=== PATIENT | male | born 1945 | race Caucasian/White ===

== ENCOUNTER 2016-11-05 09:07 | Inpatient (IN) | payer BC, OTHER ==
[~2016-11-05] VITALS: Ht 167.6 cm; Wt 88.4 kg
[2016-11-05] VITALS (7 sets, daily range): BP systolic 112–145; BP diastolic 60–75; PULSE 55–72; TEMP 36.4; O2SAT 94–97; Ht 167.6 cm; Wt 88.4 kg
[~2016-11-05 09:07] MED LIST: ACET-1256 PO; ACT30 PO; ATOR-22 PO; ENAL10TA88 PO; METF-384 PO; MULT-506 PO; RXC5 PO; SENNTAB23 PO; SILD100T PO; TAMS0.4C38 PO
--- NOTE | 2016-11-05 09:37 | EMERGENCY ROOM VISIT NOTE ---
History Report prepared by Jayce: Ilan Chi Under the Supervision of: Dr. Zulema Miguel M.D. First contact with patient: 09:26 Chief Complaint: WEAKNESS Stated Complaint: WEAKNESS,TIRED,NO SLEEP History of Present Illness The patient is a 70 year old male who presents to the Emergency Room with complaints of weakness that occurred two weeks ago. This weakness is secondary to his increased trouble sleeping. He was given a sleeping pill at this time that helped him initially, but it stopped helping him sleep. He normally sleeps around 5 hours each night, but he has not been close to this at all. He denies any pain, fevers, or diarrhea. He does not feel like his weight has changed drastically. Secondary to the patient working in [employer] for 50 years, he has a chronic hacking cough. He becomes short of breath occasionally as well. He had one occurrence of chest pain with exertion while he was mowing the lawn last week, but it resolved. He has been using a stool softener to keep him regular. He has a past medical history of hypertension, diabetes, and hyperlipidemia. He has had a recent back surgery. He does not take blood thinners. He currently takes Atorvastatin 200 mg PO once a day, Metformin 1000 mg PO once a day, Enalapril 20 mg PO twice a day, Pioglitazone 30 mg PO once a day, and Centrum Silver PO once a day. Source of History: patient Onset: 2 weeks ago Position: other (global) Symptom Intensity: moderate Quality: other (weakness) Timing: constant Associated Symptoms: + SOB, + cough, No diarrhea, No fevers Note: He denies any pain at this time. Review of Systems See HPI for pertinent positives & negatives. A total of 10 systems reviewed and were otherwise negative. Past Medical & Surgical Medical Problems: (1) Chest pain (2) Diabetes mellitus, type II (3) Dyslipidemia (4) Hypertension (5) Lumbar stenosis with neurogenic claudication (6) Non-ST elevation [place] (NSTEMI) Surgical Problems: (1) Status post appendectomy (2) Status post lumbar surgery (3) Status post total knee replacement Family History Coronary artery disease MOTHER Diabetes mellitus FATHER Social History Smoking Status: Heavy Tobacco Smoker Marital Status: single Housing Status: lives alone Occupation Status: employed Current/Historical Medications Scheduled Atorvastatin (Lipitor), 20 MG PO QAM Enalapril Maleate (Enalapril Maleate), 20 MG PO BID Metformin Hcl (Glucophage), 1,000 MG PO BID Multivitamin (Multivitamin), 1 TAB PO QAM Pioglitazone (Actos), 1 TAB PO QAM Sennosides-Docusate Sodium (Stool Softener), 2 TAB PO QPM Sildenafil Citrate (Viagra), 100 MG PO PRN Tamsulosin Hcl (Flomax), 0.4 MG PO QAM Scheduled PRN Trazodone Hcl (Trazodone), 50 MG PO HS PRN for Sleep Allergies Coded Allergies: No Known Allergies (Verified , 11/05/16) Physical Exam Vital Signs Date Time Temp Pulse Resp B/P Pulse Ox O2 Delivery O2 Flow Rate FiO2 11/05/16 13:23 124/75 11/05/16 13:18 83 11/05/16 13:16 88 18 98 Room Air 11/05/16 11:19 77 18 130/63 97 Room Air 11/05/16 11:04 94 Room Air 11/05/16 09:26 86 11/05/16 09:10 36.4 80 18 125/75 94 Room Air Physical Exam Vital signs reviewed. General: Well-appearing male, in no significant distress. HEENT: No scleral icterus, PERRLA, neck supple. Atraumatic. Cardiovascular: Regular rate and rhythm, no extra sounds. Pulmonary: Clear to auscultation bilaterally, normal work of breathing. Abdomen: Soft, nontender, nondistended, positive bowel sounds. Musculoskeletal: Atraumatic, no peripheral edema. Neurologic: Patient awake alert and oriented x 3, full strength in all 4 extremities. Cranial nerves 2 through 12 grossly intact. Skin: Warm, dry, no rash Medical Decision & Procedures ER Provider Diagnostic Interpretation: X-ray results as stated below per interpretation by me and the radiologist: CHEST ONE VIEW PORTABLE CLINICAL HISTORY: CP dyspnea COMPARISON STUDY: 02/12/2016 FINDINGS: Cardiomegaly. Trace pleural fluid lateral costophrenic angles bilaterally. Increased prominence of the pulmonary vasculature. Thoracolumbar laminectomy and fusion. IMPRESSION: Developing congestive heart failure Electronically signed by: Luc Rodriguez M.D. 11/05/2016 10:01 AM Dictated Date/Time: 11/05/2016 10:01 AM Laboratory Results Test 11/05/16 09:25 11/05/16 09:30 11/05/16 09:39 Immature Granulocyte % (Auto) 0.1 % White Blood Count 8.06 K/uL (4.8-10.8) Red Blood Count 4.34 M/uL (4.7-6.1) Hemoglobin 12.8 g/dL (14.0-18.0) Hematocrit 39.9 % (42-52) Mean Corpuscular Volume 91.9 fL (80-100) Mean Corpuscular Hemoglobin 29.5 pg (25-34) Mean Corpuscular Hemoglobin Concent 32.1 g/dl (32-36) Platelet Count 284 K/uL (130-400) Mean Platelet Volume 9.4 fL (7.4-10.4) Neutrophils (%) (Auto) 73.8 % Lymphocytes (%) (Auto) 17.5 % Monocytes (%) (Auto) 6.9 % Eosinophils (%) (Auto) 1.5 % Basophils (%) (Auto) 0.2 % Neutrophils # (Auto) 5.94 K/uL (1.4-6.5) Lymphocytes # (Auto) 1.41 K/uL (1.2-3.4) Monocytes # (Auto) 0.56 K/uL (0.11-0.59) Eosinophils # (Auto) 0.12 K/uL (0-0.5) Basophils # (Auto) 0.02 K/uL (0-0.2) Immature Granulocyte # (Auto) 0.01 K/uL (0.00-0.02) Prothrombin Time 10.9 SECONDS (9.0-12.0) Prothromb Time International Ratio 1.0 (0.9-1.1) Total Bilirubin 0.6 mg/dl (0.2-1) Direct Bilirubin 0.2 mg/dl (0-0.2) Aspartate Amino Transf (AST/SGOT) 20 U/L (15-37) Alanine Aminotransferase (ALT/SGPT) 61 U/L (12-78) Alkaline Phosphatase 97 U/L (45-117) Total Creatine Kinase 88 U/L (39-308) Pro-B-Type Natriuretic Peptide 2207 pg/ml (0-900) Total Protein 7.4 gm/dl (6.4-8.2) Albumin 4.3 gm/dl (3.4-5.0) Thyroid Stimulating Hormone (TSH) 1.670 uIu/ml (0.300-4.500) Free Thyroxine 0.97 ng/dl (0.80-1.60) Free Triiodothyronine 3.13 pg/ml (2.30-4.20) Urine Color YELLOW Urine Appearance CLEAR (CLEAR) Urine pH 5.0 (4.5-7.5) Urine Specific [place] 1.024 (1.000-1.030) Urine Protein NEG (NEG) Urine Glucose (UA) NEG (NEG) Urine Ketones TRACE (NEG) Urine Occult Blood NEG (NEG) Urine Nitrite NEG (NEG) Urine Bilirubin NEG (NEG) Urine Urobilinogen NEG (NEG) Urine Leukocyte Esterase NEG (NEG) Bedside Troponin I 0.360 ng/ml (0-0.045) Laboratory results per my review. Medications Administered Medications (Trade) Dose Ordered Sig/Víctor Route Start Time Stop Time Status Last Admin Dose Admin Furosemide (Lasix Inj) 40 mg NOW STAT IV 11/05/16 11:02 11/05/16 11:03 DC 11/05/16 11:16 40 MG Aspirin (Aspirin Chew) 324 mg NOW STAT PO 11/05/16 11:02 11/05/16 11:03 DC 11/05/16 11:16 324 MG Ondansetron HCl (Zofran Inj) 4 mg Q6H PRN IV 11/05/16 12:30 12/05/16 12:29 11/06/16 05:51 4 MG Heparin Sodium/ Dextrose (Heparin 25,000 Unit/500ml D5W) 25,000 unit STK-MED ONCE .ROUTE 11/05/16 13:48 11/05/16 13:49 DC 11/05/16 14:10 25,000 UNIT Perflutren Lipid Microsphere (Definity) 2 ml ONE ONCE IV 11/05/16 13:53 11/05/16 13:54 DC 11/05/16 13:54 2 ML ECG Indication: weakness Rate (beats per minute): 87 Rhythm: normal sinus Findings: other (Previous septal infarct, flattened T-waves) Comparison ECG Date: 12 Feb 2016 Change: The septal infarct is new. ED Course 0926: Past medical records reviewed. The patient was evaluated in room B5. A complete history and physical examination was performed. 1102: Ordered Aspirin 324 mg PO, Furosemide 40 mg IV 1140: Upon reevaluation, the patient is resting comfortably. I discussed laboratory and radiographic results with him. He verbalized agreement of the treatment plan. I spoke with Dr. Abdullahi of the [facility]. The patient will be evaluated for further management and care. Medical Decision Differential diagnosis: Etiologies such as metabolic, infection, hypo/hyperglycemia, electrolyte abnormalities, cardiac sources, intracerebral event, toxicologic, neurologic, as well as others were entertained. This patient was evaluated and appeared to be in no significant distress. IV access was obtained and laboratory work was drawn. The patient was complaining mostly of fatigue and some shortness of breath. He states he had a difficult time sleeping. His physical examination is fairly unrevealing. Chest x-ray reveals some mild pulmonary edema. EKG reveals no acute ischemia, there is indication of previous infarct. Patient's laboratory work reveals an elevated troponin at 0.3. Patient was given 4 baby aspirin. He was also given Lasix 40 mg IV for the pulmonary congestion. The case was discussed with the hospitalist service who evaluated the patient for admission and further management. Consults Time Called: 1135 Consulting Physician: Dr. Abdullahi - [facility] Returned Call: 1140 They will be evaluating the patient for further management. Impression Primary Impression: Cardiac ischemia Additional Impressions: Elevated troponin CHF (congestive heart failure) Scribe Attestation The scribe's documentation has been prepared under my direction and personally reviewed by me in its entirety. I confirm that the note above accurately reflects all work, treatment, procedures, and medical decision making performed by me. Departure Information Dispostion Being Evaluated By Hospitalist Referrals Selene Gross M.D. (PCP) Patient Instructions My [facility] Problem Qualifiers
[2016-11-05 09:49] LABS: BASO % 0.2 %; BASO ABS # 0.02 K/uL (0-0.2); COMPLETE YES; EOS % 1.5 %; HEMATOCRIT 39.9 % (42-52); IG% 0.1 %; LYMPH % 17.5 %; LYMPH ABS # 1.41 K/uL (1.2-3.4); MEAN CELL VOLUME 91.9 fL (80-100); MEAN CORPUSCULAR HEMOGLOBIN 29.5 pg (25-34); MEAN CORPUSCULAR HGB CONC 32.1 g/dl (32-36); MEAN PLATELET VOLUME 9.4 fL (7.4-10.4); MONO % 6.9 %; NEUT % 73.8 %; PLATELET COUNT 284 K/uL (130-400); RED BLOOD COUNT 4.34 M/uL (4.7-6.1); WHITE BLOOD COUNT 8.06 K/uL (4.8-10.8)
[2016-11-05 09:57] LABS: URINE APPEARANCE CLEAR (CLEAR); URINE BILIRUBIN NEG (NEG); URINE COLOR YELLOW; URINE NITRITE NEG (NEG); URINE SPECIFIC GRAVITY 1.024 (1.000-1.030); UROBILINOGEN NEG (NEG); ZZUR CULT IF INDIC CLEAN CATCH NO
[2016-11-05 10:00] LABS: MANUAL MICROSCOPIC REQUIRED? NO; REVIEW REQ? NO
[2016-11-05 10:00] LABS: PROTHROMBIN TIME (PATIENT) 10.9 SECONDS (9.0-12.0)
--- NOTE | 2016-11-05 10:02 | DIAGNOSTIC IMAGING REPORT ---
CHEST ONE VIEW PORTABLE CLINICAL HISTORY: CP dyspnea COMPARISON STUDY: 02/12/2016 FINDINGS: Cardiomegaly. Trace pleural fluid lateral costophrenic angles bilaterally. Increased prominence of the pulmonary vasculature. Thoracolumbar laminectomy and fusion. IMPRESSION: Developing congestive heart failure Electronically signed by: Luc Rodriguez M.D. 11/05/2016 10:01 AM Dictated Date/Time: 11/05/2016 10:01 AM
[2016-11-05 10:07] LABS: ALT/SGPT 61 U/L (12-78); BLOOD UREA NITROGEN 26 mg/dl (7-18); BUN/CREATININE RATIO 23.8 (10-20); CALCIUM 9.2 mg/dl (8.5-10.1); CARBON DIOXIDE 25 mmol/L (21-32); CHLORIDE 111 mmol/L (98-107); GLUCOSE 119 mg/dl (70-99); POTASSIUM 4.2 mmol/L (3.5-5.1); SODIUM 144 mmol/L (136-145)
[2016-11-05 10:18] LABS: ALKALINE PHOSPHATASE 97 U/L (45-117); AST/SGOT 20 U/L (15-37); CKMB/CK RATIO 3.3 (0-3.0)
[2016-11-05] MEDS ORDERED: TRAZ50TA35 PO (10:27)
[2016-11-05] MEDS ORDERED: FUROSEMIDE 40 MG/4 ML VIAL IV STA (11:02)
[2016-11-05] MEDS ORDERED: ASPIRIN 81 MG CHEW PO STA (11:02)
[2016-11-05] MEDS ORDERED: ONDANSETRON INJ 2 MG/ML 2 ML VIAL IV PRN (12:30)
[2016-11-05] MEDS ORDERED: ZOLPIDEM TARTRATE 5 MG TAB PO PRN ×2 (12:30→14:15)
[2016-11-05] MEDS ORDERED: NITROGLYCERIN 0.4 MG SL PER TAB CHARGE SL PRN (12:30)
[2016-11-05] MEDS ORDERED: ACETAMINOPHEN 325 MG TAB PO PRN (12:30)
[2016-11-05] MEDS ORDERED: ENAL20TA PO (12:35)
[2016-11-05] MEDS ORDERED: GLUCOSE 10 TABS/TUBE PO PRN (12:45)
[2016-11-05] MEDS ORDERED: GLUCAGON FOR INJ 1 MG VIAL SQ PRN (12:45)
[2016-11-05] MEDS ORDERED: GLUCOSE 40% GEL 15 GM TUBE PO PRN (12:45)
[2016-11-05] MEDS ORDERED: DEXTROSE 50% 50 ML SYR IV PRN (12:45)
[2016-11-05] MEDS ORDERED: IV FLUIDS COMPLETED PRN ×2 (12:45→15:15)
--- NOTE | 2016-11-05 13:01 | History and Physical ---
History & Physical Date & Time of Service: November 05, 2016 at 12:40 Chief Complaint: Weakness,Tired,No Sleep Primary Care Physician: Selene Gross M.D. History of Present Illness Source: patient This is a 70 y/o male with PMHx of DM 2, HTN, Dyslipidemia and other problems as outlined below who presents to the ED c/o weakness for 3 weeks. Pt reports that he has been getting progressively more weak and tired over the past few weeks which he attributes to increasing difficulty with insomnia. His PCP prescribed trazodone to use as needed but it has not been helping. Last week patient was mowing his lawn when he developed 6/10 chest "pressure" that did not radiate anywhere. Sxs resolved after about 15 minutes of resting. When he returned to mowing the same chest discomfort returned. Since that time, patient has not experienced any more chest discomfort however he feels like "something isn't right". Daughter at bedside mentions that she has noticed a worsening wet cough as well as worsening LE swelling. Positive FmHx of cardiac disease but pt has no personal history of cardiac disease. Pt denies fever/chills, diaphoresis , chest pain, palpitations, SOB, wheezing, abd pain, N/V, bowel or bladder issues, LE edema ,calf pain, lightheadedness/dizziness. In the ED, vitals are stable. Pt is afebrile with no leukocytosis. Trop 0.36 and EKG + T wave changes in lateral leads. CXR + congestion. Pt is currently chest pain free and will be admitted for further evaluation and treatment. Past Medical/Surgical History Medical Problems: (1) Diabetes mellitus, type II Status: Chronic (2) Dyslipidemia Status: Chronic (3) Hypertension Status: Chronic (4) Lumbar stenosis with neurogenic claudication Status: Chronic Surgical Problems: (1) Status post appendectomy Status: Resolved (2) Status post lumbar surgery Status: Resolved (3) Status post total knee replacement Status: Resolved Family History Coronary artery disease MOTHER Diabetes mellitus FATHER Social History Smoking Status: Never Smoker Marital Status: single Occupational Status: employed Immunizations History of Influenza Vaccine: Yes History of Tetanus Vaccine?: No History of Pneumococcal: Unknown History of Hepatitis B Vaccine: No Allergies Coded Allergies: No Known Allergies (Verified , 11/05/16) Home Medications Scheduled Atorvastatin (Lipitor), 20 MG PO QAM Enalapril Maleate (Enalapril Maleate), 20 MG PO BID Metformin Hcl (Glucophage), 1,000 MG PO BID Multivitamin (Multivitamin), 1 TAB PO QAM Pioglitazone (Actos), 1 TAB PO QAM Sennosides-Docusate Sodium (Stool Softener), 2 TAB PO QPM Sildenafil Citrate (Viagra), 100 MG PO PRN Tamsulosin Hcl (Flomax), 0.4 MG PO QAM Scheduled PRN Trazodone Hcl (Trazodone), 50 MG PO HS PRN for Sleep Review of Systems Constitutional: + fatigue, + weakness, No chills, No fever, No sweats Eyes: No worsening of vision ENT: No hearing loss Respiratory: + cough, No shortness of breath, No sputum, No wheezing Cardiovascular: + chest pain, + edema, No claudication, No palpitations Abdomen: No constipation, No diarrhea, No nausea, No pain, No vomiting Musculoskeletal: + swelling, No calf pain Genitourinary - Male: No dysuria Neurologic: + weakness Psychiatric: No depression symptoms Endocrine: + fatigue Hematologic / Lymphatic: No abnormal bleeding/bruising Integumentary: No new/changing skin lesions Physical Exam Vital Signs Date Time Temp Pulse Resp B/P Pulse Ox O2 Delivery O2 Flow Rate FiO2 11/05/16 11:19 77 18 130/63 97 Room Air 11/05/16 11:04 94 Room Air 11/05/16 09:26 86 11/05/16 09:10 36.4 80 18 125/75 94 Room Air General Appearance: WD/WN, no apparent distress, + pertinent finding (Pt is laying in bed with daughter at bedside ) Head: normocephalic, atraumatic Eyes: normal inspection ENT: hearing grossly normal Neck: supple Respiratory/Chest: chest non-tender, no respiratory distress, + crackles ( bibasilar), + pertinent finding (no wheezing noted) Cardiovascular: regular rate, rhythm, no murmur Abdomen/GI: normal bowel sounds, non tender, soft Back: normal inspection Extremities/Musculoskelatal: normal inspection, no calf tenderness, + pedal edema (R>L) Neurologic/Psych: alert, normal mood/affect, oriented x 3 Skin: normal color, warm/dry Diagnostics Laboratory Results Results Past 24 Hours Test 11/05/16 09:25 11/05/16 09:30 11/05/16 09:39 Range/Units White Blood Count 8.06 4.8-10.8 K/uL Red Blood Count 4.34 4.7-6.1 M/uL Hemoglobin 12.8 14.0-18.0 g/dL Hematocrit 39.9 42-52 % Mean Corpuscular Volume 91.9 80-100 fL Mean Corpuscular Hemoglobin 29.5 25-34 pg Mean Corpuscular Hemoglobin Concent 32.1 32-36 g/dl Platelet Count 284 130-400 K/uL Mean Platelet Volume 9.4 7.4-10.4 fL Neutrophils (%) (Auto) 73.8 % Lymphocytes (%) (Auto) 17.5 % Monocytes (%) (Auto) 6.9 % Eosinophils (%) (Auto) 1.5 % Basophils (%) (Auto) 0.2 % Neutrophils # (Auto) 5.94 1.4-6.5 K/uL Lymphocytes # (Auto) 1.41 1.2-3.4 K/uL Monocytes # (Auto) 0.56 0.11-0.59 K/uL Eosinophils # (Auto) 0.12 0-0.5 K/uL Basophils # (Auto) 0.02 0-0.2 K/uL RDW Standard Deviation 51.6 36.4-46.3 fL RDW Coefficient of Variation 15.2 11.5-14.5 % Immature Granulocyte % (Auto) 0.1 % Immature Granulocyte # (Auto) 0.01 0.00-0.02 K/uL Prothrombin Time 10.9 9.0-12.0 SECONDS Prothromb Time International Ratio 1.0 0.9-1.1 Activated Partial Thromboplast Time 26.6 21.0-31.0 SECONDS Partial Thromboplastin Ratio 1.0 Sodium Level 144 136-145 mmol/L Potassium Level 4.2 3.5-5.1 mmol/L Chloride Level 111 98-107 mmol/L Carbon Dioxide Level 25 21-32 mmol/L Anion Gap 8.0 3-11 mmol/L Blood Urea Nitrogen 26 7-18 mg/dl Creatinine 1.10 0.60-1.40 mg/dl Estimated GFR () 78.4 Estimated GFR (Non- 67.7 BUN/Creatinine Ratio 23.8 10-20 Random Glucose 119 70-99 mg/dl Calcium Level 9.2 8.5-10.1 mg/dl Total Bilirubin 0.6 0.2-1 mg/dl Direct Bilirubin 0.2 0-0.2 mg/dl Aspartate Amino Transf (AST/SGOT) 20 15-37 U/L Alanine Aminotransferase (ALT/SGPT) 61 12-78 U/L Alkaline Phosphatase 97 45-117 U/L Total Creatine Kinase 88 39-308 U/L Creatine Kinase MB 2.9 0.5-3.6 ng/ml Creatine Kinase MB Ratio 3.3 0-3.0 Total Protein 7.4 6.4-8.2 gm/dl Albumin 4.3 3.4-5.0 gm/dl Thyroid Stimulating Hormone (TSH) 1.670 0.300-4.500 uIu/ml Free Thyroxine 0.97 0.80-1.60 ng/dl Free Triiodothyronine 3.13 2.30-4.20 pg/ml Urine Color YELLOW Urine Appearance CLEAR CLEAR Urine pH 5.0 4.5-7.5 Urine Specific [place] 1.024 1.000-1.030 Urine Protein NEG NEG Urine Glucose (UA) NEG NEG Urine Ketones TRACE NEG Urine Occult Blood NEG NEG Urine Nitrite NEG NEG Urine Bilirubin NEG NEG Urine Urobilinogen NEG NEG Urine Leukocyte Esterase NEG NEG Bedside Troponin I 0.360 0-0.045 ng/ml Diagnostic Radiology CXR IMPRESSION: Developing congestive heart failure EKG EKG: NSR at 87 bpm with T wave inversion in Lead I and T wave flattening in V5 and V6; T wave changes in lateral leads are new finding when compared to EKG from 02/12/16 Impression Assessment and Plan NSTEMI pt presented c/o intermittent exertional chest pain; no known history of cardiac disease -admit to telemetry -RFs include +FmHx, DM 2, HTN, Dyslipidemia -EKG shows new T wave changes in lateral leads; repeat EKG PRN chest pain and in AM -Initial troponin is 0.36; continue to monitor with serial cardiac enzymes q6h -obtain echo to r/o cardiac wall motion abnormalities -start IV Heparin, ASA and Metoprolol -increase statin to 80mg -consult cardiology, Dr. Cuellar-appreciate input -pt is currently chest pain free -continue to monitor CHF EXACERBATION -LE edema and crackles on exam -BNP>2000; CXR + trace pleural effusions bilaterally to suggest developing CHF -obtain echo -pt received 20mg IV Lasix in ED -monitor daily weights and I&Os DM 2 -recent A1C 6.8 -hold Actos and Metformin -start ISS -monitor BSG AC HS HTN -BP controlled -cont enalapril -start metoprolol -monitor DYSLIPIDEMIA -check fasting lipids -cont statin DVT PROPHYLAXIS -IV heparin CODE STATUS -FULL CODE per discussion with patient upon admission DISPO -Observation status until further workup is complete. Pt seen in collaboration with Dr. Abdullahi. Please see her addendum for further details. Thanks! -Of note: patient will be followed by Dr. Rome starting tomorrow AM. Advanced Directives Existing Living Will: No Existing Power of [employer] Consultant: No VTE Prophylaxis VTE Risk Assessment Done? Y/N: Yes Risk Level: Moderate
[2016-11-05] MEDS ORDERED: HEPARIN 25000 UNIT/500 ML D5W ONE (13:48)
[2016-11-05] MEDS ORDERED: PERFLUTREN LIPID MICROSPHERE (DEFINITY) IV ONE (13:53)
--- NOTE | 2016-11-05 14:09 | Progress Note ---
Progress Note Date of Service November 05, 2016. Progress Note Patient was seen and evaluated with [facility] Peters. Patient comes in with vague c/o insomnia for 2 months, generalized weakness. 7 days ago he had 2 episodes of chest pain while mowing his lawn, which resolved after rest. No prior episodes of similar pain even while he goes for his physical therapy sessions. No associated symptoms of diaphoresis, nausea, vomiting, fever, chills, SOB. Denies any orthopenea. 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 EXAM: Gen: AAOX3, no distress HEENT: No icterus Neck: No JVD Heart: S1, S2 no murmur Lungs: AEBE , few rales bibasilar, no wheezing, rhonchi Abd: Soft, non tender, non distended, BS present Ext: Edema bilaterally upto lower legs NSTEMI Pt came in with vague symptoms of insomnia but had 2 episodes of exertional chest pain while moving lawn 1 week ago. No prior hx of similar chest pain episodes, no prior hx of stress test or cardiac cath. Labs: Trop 0.360, EKG - T wave inversion Leads 1, avl, v2, Flattening in leads V4, V5, V6. CXR- developing CHF -Risk factors: 70 year old M with no prior cardiac evaluation, DM, HTN, Dyslipidemia, Family hx positive for Premature CAD. Not on aspirin at home -IV heparin therapeutic -Start Aspirin, Metoprolol. Increased Atorvastatin to 80 mg daily, continue with Enalapril -Trend troponin, Echocardiogram, EKG -Cardiology consulted- discussed case and mx as above recommended CHF EXACERBATION , NEW ONSET -LE edema and crackles on exam -BNP>2000; CXR Developing CHF + trace pleural effusions bilaterally to suggest developing CHF -pt received 20mg IV Lasix in ED. Will start on IV lasix 20 mg BID (Not on it at home) -Echo ordered -Monitor daily weights and I&Os DM 2 -recent A1C 6.8 -hold Actos and Metformin -start ISS -monitor BSG AC HS HTN -BP controlled -cont enalapril -start metoprolol -monitor DYSLIPIDEMIA -check fasting lipids -cont statin - increased dose to 80 mg for NSTEMI DVT PROPHYLAXIS -IV heparin CODE STATUS -FULL CODE per discussion with patient upon admission -Admit to telemetry
[2016-11-05] MEDS ORDERED: ATORVASTATIN 40 MG TAB PO ONE (14:45)
--- NOTE | 2016-11-05 15:15 | ECHOCARDIOGRAM REPORT ---
*NOTICE TO RECEIVING [facility] This information is strictly Confidential and protected under [place] law. [place] law prohibits you from making any further disclosure of this information unless further disclosure is expressly permitted by the written consent of the person to whom it pertains or is authorized by law. A general authorization for the release of medical or other information is not sufficient for this purpose. Hospital accepts no responsibility if the information is made available to any other person, INCLUDING THE PATIENT. Interpretation Summary * Name: BRIANNA HENDRICKS Study Date: 11/05/2016 01:29 PM BP: 130/63 mmHg * Patient Location: C.EDB HR: 77 * : 1945 (M/d/yyyy) Gender: Male Height: 66 in * Age: 70 yrs Ethnicity: CA Weight: 207 lb * Ordering Physician: Lorraine Acevedo * Referring Physician: Self, Referred * Performed By: Lenka Silva RDCS * * Reason For Study: Chest pain * BSA: 2.0 m2 * The study was technically adequate. * There is no comparison study available. * -- Conclusions -- * Left ventricular systolic function is moderately reduced. * Ejection Fraction = 35-40%. * Regional wall motion abnormalities suggest LAD territory myocardial infarction. * Aortic valve sclerosis mild, without significant aortic valvular stenosis. * Mild aortic regurgitation. * There is moderate mitral regurgitation. * There is mild tricuspid regurgitation. * Right ventricular systolic pressure is elevated at 40-50mmHg. * The inferior vena cava is mildly dilated. * Diastolic dysfunction, Grade II (pseudonormalization pattern). Procedure Details * A complete two-dimensional transthoracic echocardiogram was performed (2D, M-mode, Doppler and color flow Doppler). * A contrast injection of Definity was performed to improve assessment of LV function. * Contrast was injected into an intravenous site in the right arm. * One vial of Definity ultrasound contrast was diluted in normal saline to a total volume of 10 ml. A total of '2' ml of solution was administered during imaging. * Lot # [id number] of Definity utilized for procedure. * Expiration date OCT 18. * The attending nurse who injected the contrast agent was Evangelina Del Rio RN. Left Ventricle * The left ventricle is normal in size. * There is no thrombus. * There is normal left ventricular wall thickness. * Ejection Fraction = 35-40%. * Left ventricular systolic function is moderately reduced. * Regional wall motion abnormalities suggest LAD territory myocardial infarction. Right Ventricle * The right ventricle is normal size. * The right ventricular systolic function is normal as assessed by tricuspid annular plane systolic excursion (TAPSE) (normal >1.5 cm). Atria * The left atrium is mildly dilated. * Right atrial size is normal. * There is no evidence of atrial septal defect, but resolution does not allow assessment for a patent foramen ovale. Mitral Valve * There is mild to moderate mitral annular calcification. * The mitral valve leaflets appear thickened, but open well. * There is no mitral valve stenosis. * There is moderate mitral regurgitation. Tricuspid Valve * The tricuspid valve is normal. * There is no tricuspid stenosis. * There is mild tricuspid regurgitation. * Right ventricular systolic pressure is elevated at 40-50mmHg. Aortic Valve * The aortic valve is trileaflet. * Aortic valve sclerosis mild, without significant aortic valvular stenosis. * Aortic stenosis is absent. * Mild aortic regurgitation. Pulmonic Valve * The pulmonary valve is not well seen, but the Doppler examination is normal without significant regurgitation or stenosis. Great Vessels * The aortic root and proximal ascending aorta are normal sized. Pericardium/Pleural * There is no pericardial effusion. Great Vessels * The inferior vena cava is mildly dilated. Left Ventricular Diastolic Function * Diastolic dysfunction, Grade II (pseudonormalization pattern). MMode 2D Measurements and Calculations IVSd 1.2 cm LVIDd 5.3 cm LVIDs 3.8 cm LVPWd 1.1 cm IVS/LVPW 1.1 FS 27.9 % EDV(Teich) 137.2 ml ESV(Teich) 63.7 ml EF(Teich) 53.6 % EDV(cubed) 151.6 ml ESV(cubed) 56.8 ml EF(cubed) 62.5 % LV mass(C)d 235.3 grams LV mass(C)dI 115.9 grams/m\S\2 CO(Teich) 5.2 l/min CI(Teich) 2.6 l/min/m\S\2 SV(Teich) 73.5 ml SI(Teich) 36.2 ml/m\S\2 CO(cubed) 6.7 l/min CI(cubed) 3.3 l/min/m\S\2 SV(cubed) 94.7 ml SI(cubed) 46.7 ml/m\S\2 Ao root diam 3.7 cm Ao root area 10.6 cm\S\2 ACS 2.0 cm LA dimension 4.2 cm asc Aorta Diam 3.9 cm LA/Ao 1.1 LVOT diam 2.0 cm LVOT area 3.2 cm\S\2 LVAd ap4 44.9 cm\S\2 LVLd ap4 9.1 cm EDV(MOD-sp4) 147.6 ml EDV(sp4-el) 151.4 ml LVAs ap4 33.6 cm\S\2 LVLs ap4 8.3 cm ESV(MOD-sp4) 88.1 ml ESV(sp4-el) 91.8 ml EF(MOD-sp4) 40.3 % EF(sp4-el) 39.4 % LVAd ap2 42.8 cm\S\2 LVLd ap2 8.5 cm EDV(MOD-sp2) 150.1 ml EDV(sp2-el) 155.9 ml LVAs ap2 33.9 cm\S\2 LVLs ap2 7.6 cm ESV(MOD-sp2) 102.3 ml ESV(sp2-el) 108.4 ml EF(MOD-sp2) 31.8 % EF(sp2-el) 30.5 % LVLd %diff -9.56 % EDV(MOD-bp) 151.5 ml LVLs %diff -13.54 % ESV(MOD-bp) 94.7 ml EF(MOD-bp) 37.5 % CO(MOD-sp4) 4.2 l/min CI(MOD-sp4) 2.1 l/min/m\S\2 SV(MOD-sp4) 59.5 ml SI(MOD-sp4) 29.3 ml/m\S\2 CO(MOD-sp2) 3.4 l/min CI(MOD-sp2) 1.7 l/min/m\S\2 SV(MOD-sp2) 47.8 ml SI(MOD-sp2) 23.6 ml/m\S\2 CO(MOD-bp) 4.0 l/min CI(MOD-bp) 2.0 l/min/m\S\2 SV(MOD-bp) 56.8 ml SI(MOD-bp) 28.0 ml/m\S\2 CO(sp4-el) 4.2 l/min CI(sp4-el) 2.1 l/min/m\S\2 SV(sp4-el) 59.6 ml SI(sp4-el) 29.4 ml/m\S\2 CO(sp2-el) 3.4 l/min CI(sp2-el) 1.7 l/min/m\S\2 SV(sp2-el) 47.5 ml SI(sp2-el) 23.4 ml/m\S\2 Doppler Measurements and Calculations MV E max akiko 90.2 cm/sec MV A max akiko 58.7 cm/sec MV E/A 1.5 MV dec time 0.21 sec Ao V2 max 119.5 cm/sec Ao max PG 5.7 mmHg Ao max PG (full) 2.5 mmHg ANN(V,A) 2.4 cm\S\2 ANN(V,D) 2.4 cm\S\2 AI max akiko 351.6 cm/sec AI max PG 49.4 mmHg AI dec slope 241.8 cm/sec\S\2 AI P1/2t 425.9 msec LV V1 max PG 3.2 mmHg LV V1 max 89.2 cm/sec MR max akiko 419.1 cm/sec MR max PG 70.3 mmHg MR mean akiko 336.9 cm/sec MR mean PG 50.5 mmHg MR VTI 131.0 cm PA V2 max 84.4 cm/sec PA max PG 2.8 mmHg PA acc slope 660.1 cm/sec\S\2 PA acc time 0.08 sec PI max akiko 125.1 cm/sec PI max PG 6.3 mmHg PI dec slope 94.9 cm/sec\S\2 PI P1/2t 386.1 msec TR max akiko 295.9 cm/sec PA pr(Accel) 41.0 mmHg
[2016-11-05] MEDS: MULTIVITAMIN TAB PO SCH (16:26)
[2016-11-05] MEDS: INSULIN ASPART 100 UNITS/ML 3 ML PEN SC SCH ×2 (17:19→21:00)
[2016-11-05] MEDS: DOCUSATE SODIUM/SENNA 50/8.6MG TAB PO SCH (19:40)
[2016-11-05] MEDS: ENALAPRIL MALEATE 10 MG TAB PO SCH (19:41)
[2016-11-05] MEDS: FUROSEMIDE INJ 40 MG in SYRINGE 0 ML IV SCH (19:42)
[2016-11-05] MEDS ORDERED: METOPROLOL TARTRATE 25 MG TAB PO SCH (21:00)
[2016-11-05] MEDS ORDERED: FUROSEMIDE INJ 20 MG in SYRINGE 0 ML IV SCH (21:00)
[2016-11-05 21:22] LABS: PARTIAL THROMBOPLASTIN RATIO 1.4
[2016-11-05] MEDS ORDERED: HEPARIN IV BOLUS 6,000 UNIT in SYRINGE 0 ML IV STA (21:41)
[2016-11-05] MEDS: HEPARIN 25,000 UNIT/500ML D5W 500 ML IV PRN (22:01)
--- NOTE | 2016-11-05 22:18 | DIAGNOSTIC IMAGING REPORT ---
BILATERAL LOWER EXTREMITY VENOUS DOPPLER HISTORY: Pain. Edema. asymmetric edema COMPARISON STUDY: None. FINDINGS: There is normal compressibility, flow, and augmentation within the bilateral lower extremity deep venous systems. IMPRESSION: No DVT within the right or left lower extremity. Electronically signed by: Luc Rodriguez M.D. 11/05/2016 10:16 PM Dictated Date/Time: 11/05/2016 10:16 PM
[2016-11-05] MEDS: ZOLPIDEM TARTRATE 5 MG TAB PO SCH (23:55)
[2016-11-06] VITALS (7 sets, daily range): BP systolic 98–138; BP diastolic 53–77; PULSE 58–88; TEMP 36.3–36.7; O2SAT 90–96
--- NOTE | 2016-11-06 03:58 | CARDIOLOGY CONSULTATION ---
DATE OF CONSULTATION: 11/05/2016 REFERRING PHYSICIAN: Darcy Abdullahi MD REASON FOR CONSULTATION: NSTEMI. CHIEF COMPLAINT ON ADMISSION: Fatigue, difficulty sleeping, chest discomfort. HISTORY OF PRESENT ILLNESS: Mr. Anand is a 70-year-old gentleman with a history of diabetes, hypertension, and dyslipidemia; presented to the Emergency Department with progressive weakness and fatigue for approximately 2-3 weeks. The patient reports an episode of chest discomfort while mowing his lawn approximately 10-14 days ago. He had been pushing his machine buffer up an incline when he developed a tightness and heaviness across his anterior chest wall. This was associated with shortness of breath with radiation to his left arm. The discomfort was rated as 6/10 in severity. He sat and rested for approximately 15 minutes. When he resumed mowing his lawn, the pain returned and he rested again. Since that day, he has not experienced recurrent chest pain with exertion. He has been participating in physical therapy. He feels "not quite right." Stamina levels are not what they used to be. He reports difficulty sleeping at night and has required use of his recliner to obtain any rest. He feels uneasy when he lies flat. Notes lower extremity edema which has also become more prominent over the past week. Denies prior history of coronary disease, congestive heart failure, dysrhythmia, rheumatic fever as a child, or peripheral vascular disease. His ECG demonstrates new anterior T-wave changes as well as evidence of age indeterminate anterior infarct. Currently, patient is resting comfortably. Denies chest pain. No dysrhythmias on telemetry. His daughter is present at bedside. No other complaints at this time. REVIEW OF SYSTEMS: The pertinent positives noted above. A comprehensive 10-system review is otherwise negative. PAST MEDICAL HISTORY: 1. Diabetes type 2. 2. Dyslipidemia. 3. Hypertension. 4. Spinal stenosis. PAST SURGICAL HISTORY: 1. Appendectomy. 2. Lumbar spinal surgery. 3. Total knee replacement. FAMILY HISTORY: Senile coronary disease, both parents. No premature CAD or sudden cardiac . SOCIAL HISTORY: Lifelong nonsmoker. Denies alcohol or illicit drug use. ALLERGIES: No known drug allergies. OUTPATIENT MEDICATIONS: 1. Atorvastatin 20 mg daily. 2. Enalapril 20 mg twice daily. 3. Metformin 1000 mg twice daily. 4. Multivitamin daily. 5. Actos 1 tablet daily. 6. Viagra 100 mg as needed. 7. Flomax 0.4 mg daily. 8. Trazodone 50 mg at bedtime as needed for sleep. ECG ON ADMISSION: Sinus rhythm, age indeterminate anterior septal infarct, T-wave abnormality, consider lateral ischemia. Chest x-ray demonstrates mild pulmonary vascular congestion. LABORATORY DATA: Sodium 144, potassium 4.2, chloride 111, CO2 is 25, BUN is 26, creatinine is 1.10. ProBNP 2207. Initial troponin is 0.360. TSH 1.670. White blood cell count 8.06, hemoglobin is 12.8, platelet count is 284. INR is 1.0. Telemetry demonstrates sinus rhythm, no dysrhythmias. PHYSICAL EXAMINATION: VITAL SIGNS: Temperature is 36.4 degrees centigrade, pulse 67 beats per minute and regular, respiratory rate is 20 breaths per minute, blood pressure 145/75, SaO2 is 95% on room air. GENERAL: NAD, awake, alert and oriented x3. THROAT: His mucous membranes are moist. No scleral icterus. Conjunctivae are pink. NECK: Supple without JVD or HJR. HEART: Regular with a normal S1 and S2. There is a soft 1/6 systolic ejection murmur heard best at the right second intercostal space without radiation. LUNGS: Demonstrate crackles at the bases bilaterally. No rhonchi or wheeze. ABDOMEN: Soft and nontender. No rebound or guarding. Normal bowel sounds. EXTREMITIES: Demonstrate +1 to 2 right lower extremity pedal and ankle edema, there is +1 left pedal edema noted. His dorsalis pedis pulses are palpable. NEUROLOGIC: Demonstrates no focal motor deficit. FINAL IMPRESSION: 1. Non-ST segment elevation myocardial infarction with resting 2D transthoracic echo demonstrating left anterior descending territory wall motion abnormality. 2. Ischemic cardiomyopathy with ejection fraction of 35% to 40% and decompensated systolic heart failure. 3. Hypertension - controlled. 4. Dyslipidemia. 5. Diabetes type 2. PLAN AND RECOMMENDATIONS: I had a long discussion with patient and his daughter regarding the natural history and pathophysiology of his newly diagnosed ischemic heart disease. This appears to be a late presentation of LAD territory infarct. He is currently chest pain free; however, symptoms are consistent with acute decompensated systolic heart failure. Recommend increasing intravenous diuretics to Lasix 40 mg twice daily. We will monitor input and output as well as daily weights. A repeat basic metabolic panel will be performed in the a.m. Cardiac enzymes will be trended x3 sets. Oral metoprolol has been added in addition to his CLIFTON inhibitor. Atorvastatin has been titrated to 80 mg daily. We will continue to follow closely during hospitalization. Further recommendations pending clinical response to medical therapies as well as results of repeat lab studies. Thank you for allowing me to take part in the care of your patient.
[2016-11-06 04:12] LABS: HEMATOCRIT 41.6 % (42-52); MEAN CELL VOLUME 90.4 fL (80-100); MEAN CORPUSCULAR HEMOGLOBIN 29.1 pg (25-34); MEAN CORPUSCULAR HGB CONC 32.2 g/dl (32-36); MEAN PLATELET VOLUME 9.2 fL (7.4-10.4); PLATELET COUNT 309 K/uL (130-400); WHITE BLOOD COUNT 9.44 K/uL (4.8-10.8)
[2016-11-06 04:30] LABS: BUN/CREATININE RATIO 22.4 (10-20); CALCIUM 9.2 mg/dl (8.5-10.1); CREATININE 1.3 mg/dl (0.60-1.40); POTASSIUM 4.7 mmol/L (3.5-5.1)
[2016-11-06 04:42] LABS: PARTIAL THROMBOPLASTIN RATIO 2.8
[2016-11-06] MEDS: HEPARIN 25,000 UNIT/500ML D5W 500 ML IV PRN (06:44)
[2016-11-06] MEDS: FUROSEMIDE INJ 40 MG in SYRINGE 0 ML IV SCH ×2 (08:55→20:06)
[2016-11-06] MEDS: TAMSULOSIN HCL 0.4 MG CAP PO SCH (08:56)
[2016-11-06] MEDS: METOPROLOL TARTRATE 25 MG TAB PO SCH ×2 (08:56→20:06)
[2016-11-06] MEDS: ENALAPRIL MALEATE 10 MG TAB PO SCH ×2 (08:56→20:06)
[2016-11-06] MEDS: ASPIRIN 81 MG ECTAB PO SCH (08:56)
[2016-11-06] MEDS: ATORVASTATIN 40 MG TAB PO SCH (08:57)
[2016-11-06] MEDS: INSULIN ASPART 100 UNITS/ML 3 ML PEN SC SCH ×4 (08:59→20:45)
[2016-11-06] MEDS ORDERED: METOPROLOL TARTRATE 25 MG TAB PO SCH (09:00)
[2016-11-06] MEDS: MULTIVITAMIN TAB PO SCH (10:00)
--- NOTE | 2016-11-06 11:04 | CARDIOLOGY PROGRESS NOTE ---
DATE: 11/06/2016 DATE: 11/06/2016. SUBJECTIVE: The patient is seen and examined at the bedside. Edema has improved. Transient sinus bradycardia during sleep noted with heart rate of 45 beats per minute. His metoprolol was subsequently reduced to 12.5 mg twice daily. The patient denies chest pain or shortness of breath. No orthopnea or PND last night. He has diuresed approximately 1700 mL. No significant weight change recorded. Tolerating medications listed in the medical record. Offers no complaints at this time. REVIEW OF SYSTEMS: The pertinent positives noted above and a 4-system review including cardiovascular, pulmonary, gastroenterological, and neurologic systems otherwise negative. LABORATORY DATA: Repeat troponin 0.343. Sodium 142, potassium 4.7, chloride 104, CO2 is 31, BUN is 29, creatinine is 1.30. White blood cell count 9.44, hemoglobin is 13.4, platelet count is 309. PHYSICAL EXAMINATION: VITAL SIGNS: Temperature is 36.4 degrees centigrade, pulse 88 beats per minute and regular, respiratory rate is 16 breaths per minute, blood pressure 138/77 and SaO2 is 96% on room air. GENERAL: NAD, awake, alert and oriented x3. HEAD, EYES, EARS, NOSE, AND THROAT: Mucous membranes moist. No scleral icterus. Conjunctivae pink. NECK: Supple without JVD or HJR. No carotid bruit. HEART: Regular with a normal S1 and S2. There is a 1/6 mid systolic murmur heard best at the apex. LUNGS: Demonstrate clear breath sounds without rales, rhonchi, or wheeze. ABDOMEN: Soft, nontender. No rebound or guarding. Normal bowel sounds. EXTREMITIES: Demonstrate trace right pedal and ankle edema. NEUROLOGIC EXAMINATION: Demonstrates no focal deficit. FINAL IMPRESSION: 1. A 70-year-old male with late presentation anterior myocardial infarction. His troponins are flat. Denies recurrent exertional chest discomfort over the past 7 days. 2. Acute decompensated heart failure secondary to systolic dysfunction -- improving with diuretic therapy. 3. Ischemic cardiomyopathy, ejection fraction 35-40%. 4. Hypertension, controlled. 5. Transient sinus bradycardia during sleep. 6. Dyslipidemia. 7. Longstanding type 2 diabetes. PLAN AND RECOMMENDATIONS: I had a long discussion with the patient regarding his myocardial infarction. It appears this occurred greater than 7 days ago. No recurrent anginal symptoms noted. His heart failure is improving with diuretic therapy. He is tolerating beta jimime therapy, however, transient bradycardia was noted overnight. I will increase his metoprolol back to 25 mg twice daily and continue telemetry monitoring. We will continue intravenous heparin for an additional 24 hours. Intravenous Lasix will be continued at this time as well. We discussed the possibility of further ischemic evaluation. Given his late presentation and lack of anginal symptoms will likely pursue medical management course of action at this time. Additional ischemic evaluation via noninvasive stress testing as an outpatient. This was discussed with the patient at length who was agreeable. I will continue to follow closely during hospitalization. ABISAI
[2016-11-06 11:21] LABS: PARTIAL THROMBOPLASTIN RATIO 1.8
--- NOTE | 2016-11-06 12:22 | Progress Note ---
Internal Med Progress Note Date of Service: November 06, 2016. Provider Documentation: SUBJECTIVE: The patient was seen and examined Denies any symptoms No more bradycardia OBJECTIVE: Vital Signs-as noted below Exam: General-No distress at rest Eyes-normal ENT-normal Neck-supple Lungs-clear to ausucltate bilaterally Heart-Regular Abdomen-Benign,no masses,bowel sound present Extremities-No edema Neuro-AAOx3 No focal neuro deficit Lab data as noted below. ASSESSMENT & PLAN: NSTEMI-About 7 to 10 days ago Pt presented c/o intermittent exertional chest pain; no known history of cardiac disease -RFs include +FmHx, DM 2, HTN, Dyslipidemia -Initial troponin elevated to >0.3 and Initial EKG changes noted -Serial Troponin did not show any increase -start IV Heparin, ASA and Metoprolol -increase statin to 80mg -consult cardiology-appreciate input -ECHO:: Left ventricular systolic function is moderately reduced. * Ejection Fraction = 35-40%. * Regional wall motion abnormalities suggest LAD territory myocardial infarction. * Aortic valve sclerosis mild, without significant aortic valvular stenosis. * Mild aortic regurgitation. * There is moderate mitral regurgitation. * There is mild tricuspid regurgitation. * Right ventricular systolic pressure is elevated at 40-50mmHg. * The inferior vena cava is mildly dilated. * Diastolic dysfunction, Grade II (pseudonormalization pattern). Patient remains satble without any symptoms Acute on Chronic CHF -LE edema and crackles on exam -BNP>2000; CXR + trace pleural effusions bilaterally to suggest developing CHF -ECHO- as above -pt received 20mg IV Lasix in ED -will continue IV Lasix for now DM 2 -recent A1C 6.8 -hold Actos and Metformin for now -start ISS HTN -BP controlled -has been on BB and ACEI -BP controlled DYSLIPIDEMIA -check fasting lipids-noted -cont statin DVT PROPHYLAXIS -IV heparin to be continued for 24hrs more CODE STATUS -FULL CODE per discussion with patient upon admission DISPO Likely discharge tomorrow Vital Signs: Date Time Temp Pulse Resp B/P Pulse Ox O2 Delivery O2 Flow Rate FiO2 11/06/16 12:00 36.6 62 16 99/53 92 Room Air 11/06/16 08:24 36.4 88 16 138/77 90 Room Air 11/06/16 04:00 36.4 69 16 125/74 96 11/06/16 04:00 Room Air 11/06/16 00:01 Room Air 11/05/16 23:59 36.4 55 18 128/70 94 Room Air 11/05/16 22:49 56 112/60 11/05/16 20:00 Room Air 11/05/16 19:34 36.4 72 18 129/66 95 Room Air 11/05/16 15:58 36.4 69 18 134/71 96 Room Air 11/05/16 14:46 36.4 67 20 145/75 95 Room Air 11/05/16 14:29 67 18 133/73 97 Room Air 11/05/16 13:23 124/75 11/05/16 13:18 83 11/05/16 13:16 88 18 98 Room Air Lab Results: Results Past 24 Hours Test 11/05/16 15:30 11/05/16 15:43 11/05/16 16:26 11/05/16 20:06 Range/Units Creatine Kinase MB Ratio 0-3.0 Creatine Kinase MB 2.2 0.5-3.6 ng/ml Troponin I 0.338 0-0.045 ng/ml Bedside Glucose 114 85 70-99 mg/dl Test 11/05/16 21:00 11/06/16 04:03 11/06/16 06:33 11/06/16 10:50 Range/Units Activated Partial Thromboplast Time 35.5 73.0 47.1 21.0-31.0 SECONDS Partial Thromboplastin Ratio 1.4 2.8 1.8 Creatine Kinase MB 2.3 0.5-3.6 ng/ml Creatine Kinase MB Ratio 0-3.0 Troponin I 0.343 0-0.045 ng/ml White Blood Count 9.44 4.8-10.8 K/uL Red Blood Count 4.60 4.7-6.1 M/uL Hemoglobin 13.4 14.0-18.0 g/dL Hematocrit 41.6 42-52 % Mean Corpuscular Volume 90.4 80-100 fL Mean Corpuscular Hemoglobin 29.1 25-34 pg Mean Corpuscular Hemoglobin Concent 32.2 32-36 g/dl RDW Standard Deviation 49.7 36.4-46.3 fL RDW Coefficient of Variation 15.1 11.5-14.5 % Platelet Count 309 130-400 K/uL Mean Platelet Volume 9.2 7.4-10.4 fL Sodium Level 142 136-145 mmol/L Potassium Level 4.7 3.5-5.1 mmol/L Chloride Level 104 98-107 mmol/L Carbon Dioxide Level 31 21-32 mmol/L Anion Gap 7.0 3-11 mmol/L Blood Urea Nitrogen 29 7-18 mg/dl Creatinine 1.30 0.60-1.40 mg/dl Est Creatinine Clear Calc Drug Dose 56.7 ml/min Estimated GFR () 64.1 Estimated GFR (Non- 55.3 BUN/Creatinine Ratio 22.4 10-20 Random Glucose 128 70-99 mg/dl Calcium Level 9.2 8.5-10.1 mg/dl Triglycerides Level 59 0-150 mg/dl Cholesterol Level 94 0-200 mg/dl HDL Cholesterol 47 mg/dl LDL Cholesterol, Calculated 35 mg/dl VLDL Cholesterol, Calculated 12 mg/dl Cholesterol/HDL Ratio 2.0 Bedside Glucose 131 70-99 mg/dl Test 11/06/16 11:14 Range/Units Bedside Glucose 129 70-99 mg/dl
[2016-11-06] MEDS: DOCUSATE SODIUM/SENNA 50/8.6MG TAB PO SCH (20:06)
[2016-11-06] MEDS: ZOLPIDEM TARTRATE 5 MG TAB PO SCH (23:42)
[2016-11-07] MEDS: HEPARIN 25,000 UNIT/500ML D5W 500 ML IV PRN (00:17)
[2016-11-07 04:02] VITALS: BP 100/53; PULSE 60; TEMP 36.4; O2SAT 95
[2016-11-07 05:57] LABS: HEMATOCRIT 39.9 % (42-52); MEAN CELL VOLUME 90.9 fL (80-100); MEAN CORPUSCULAR HEMOGLOBIN 29.4 pg (25-34); MEAN CORPUSCULAR HGB CONC 32.3 g/dl (32-36); MEAN PLATELET VOLUME 9.5 fL (7.4-10.4); PLATELET COUNT 294 K/uL (130-400); RED BLOOD COUNT 4.39 M/uL (4.7-6.1); WHITE BLOOD COUNT 10.37 K/uL (4.8-10.8)
[2016-11-07 06:31] LABS: BUN/CREATININE RATIO 25.3 (10-20); CALCIUM 8.8 mg/dl (8.5-10.1); CREATININE 1.7 mg/dl (0.60-1.40); MAGNESIUM 2.3 mg/dl (1.8-2.4); POTASSIUM 4.5 mmol/L (3.5-5.1)
[2016-11-07 08:07] VITALS: BP 117/59; PULSE 74; TEMP 36.8; O2SAT 92
[2016-11-07] MEDS: ASPIRIN 81 MG ECTAB PO SCH (08:12)
[2016-11-07] MEDS: TAMSULOSIN HCL 0.4 MG CAP PO SCH (08:12)
[2016-11-07] MEDS: INSULIN ASPART 100 UNITS/ML 3 ML PEN SC SCH ×4 (08:12→21:00)
[2016-11-07] MEDS: ENALAPRIL MALEATE 10 MG TAB PO SCH (08:13)
[2016-11-07] MEDS: ATORVASTATIN 40 MG TAB PO SCH (08:13)
[2016-11-07] MEDS: MULTIVITAMIN TAB PO SCH (08:14)
[2016-11-07] MEDS: METOPROLOL TARTRATE 25 MG TAB PO SCH ×2 (08:14→21:20)
--- NOTE | 2016-11-07 10:37 | Progress Note ---
Internal Med Progress Note Date of Service: November 07, 2016. Provider Documentation: SUBJECTIVE: The patient was seen and examined Denies any symptoms No more bradycardia Ambulating well and wants to go home OBJECTIVE: Vital Signs-as noted below Exam: General-No distress at rest Eyes-normal ENT-normal Neck-supple Lungs-clear to ausucltate bilaterally Heart-Regular Abdomen-Benign,no masses,bowel sound present Extremities-No edema Neuro-AAOx3 No focal neuro deficit Lab data as noted below. ASSESSMENT & PLAN: NSTEMI-About 7 to 10 days ago Pt presented c/o intermittent exertional chest pain; no known history of cardiac disease -RFs include +FmHx, DM 2, HTN, Dyslipidemia -Initial troponin elevated to >0.3 and Initial EKG changes noted -Serial Troponin did not show any increase -start IV Heparin, ASA and Metoprolol -increase statin to 80mg -consult cardiology-appreciate input -ECHO:: Left ventricular systolic function is moderately reduced. * Ejection Fraction = 35-40%. * Regional wall motion abnormalities suggest LAD territory myocardial infarction. * Aortic valve sclerosis mild, without significant aortic valvular stenosis. * Mild aortic regurgitation. * There is moderate mitral regurgitation. * There is mild tricuspid regurgitation. * Right ventricular systolic pressure is elevated at 40-50mmHg. * The inferior vena cava is mildly dilated. * Diastolic dysfunction, Grade II (pseudonormalization pattern). Patient remains stable without any symptoms Likely to go home this afternoon Acute on Chronic CHF -LE edema and crackles on exam -BNP>2000; CXR + trace pleural effusions bilaterally to suggest developing CHF -ECHO- EF -35 to 40% -pt received 20mg IV Lasix in ED -will continue IV Lasix for now DM 2 -recent A1C 6.8 -hold Actos and Metformin for now -start ISS HTN -BP controlled -has been on BB and ACEI -BP controlled on the lower side DYSLIPIDEMIA -check fasting lipids-noted -cont statin DVT PROPHYLAXIS -IV heparin to be continued for 24hrs more CODE STATUS -FULL CODE per discussion with patient upon admission DISPO Discussed with the Daughter Likely home this afternoon Vital Signs: Date Time Temp Pulse Resp B/P Pulse Ox O2 Delivery O2 Flow Rate FiO2 11/07/16 08:07 36.8 74 16 117/59 92 Room Air 11/07/16 04:02 36.4 60 20 100/53 95 Room Air 11/07/16 04:00 Room Air 11/07/16 00:01 Room Air 11/06/16 23:33 36.4 58 22 104/56 91 Room Air 11/06/16 20:07 107/62 11/06/16 20:00 Room Air 11/06/16 19:18 36.7 76 16 98/63 92 Room Air 11/06/16 16:05 Room Air 11/06/16 15:56 36.3 68 18 106/64 93 Room Air 11/06/16 12:05 Room Air 11/06/16 12:00 36.6 62 16 99/53 92 Room Air Lab Results: Results Past 24 Hours Test 11/06/16 10:50 11/06/16 11:14 11/06/16 16:11 11/06/16 20:25 Range/Units Activated Partial Thromboplast Time 47.1 21.0-31.0 SECONDS Partial Thromboplastin Ratio 1.8 Bedside Glucose 129 123 123 70-99 mg/dl Test 11/07/16 05:24 11/07/16 06:36 11/07/16 07:01 Range/Units White Blood Count 10.37 4.8-10.8 K/uL Red Blood Count 4.39 4.7-6.1 M/uL Hemoglobin 12.9 14.0-18.0 g/dL Hematocrit 39.9 42-52 % Mean Corpuscular Volume 90.9 80-100 fL Mean Corpuscular Hemoglobin 29.4 25-34 pg Mean Corpuscular Hemoglobin Concent 32.3 32-36 g/dl RDW Standard Deviation 50.5 36.4-46.3 fL RDW Coefficient of Variation 15.1 11.5-14.5 % Platelet Count 294 130-400 K/uL Mean Platelet Volume 9.5 7.4-10.4 fL Sodium Level 139 136-145 mmol/L Potassium Level 4.5 3.5-5.1 mmol/L Chloride Level 100 98-107 mmol/L Carbon Dioxide Level 31 21-32 mmol/L Anion Gap 8.0 3-11 mmol/L Blood Urea Nitrogen 43 7-18 mg/dl Creatinine 1.70 0.60-1.40 mg/dl Est Creatinine Clear Calc Drug Dose 42.1 ml/min Estimated GFR () 46.3 Estimated GFR (Non- 40.0 BUN/Creatinine Ratio 25.3 10-20 Random Glucose 122 70-99 mg/dl Calcium Level 8.8 8.5-10.1 mg/dl Magnesium Level 2.3 1.8-2.4 mg/dl Hepatitis C Antibody Screen NEG NEG Bedside Glucose 126 70-99 mg/dl Activated Partial Thromboplast Time 51.7 21.0-31.0 SECONDS Partial Thromboplastin Ratio 2.0
--- NOTE | 2016-11-07 10:56 | Cardiology Follow-Up ---
Subjective General Date of Service: November 07, 2016. Pt evaluation today including: conversation w/ patient, physical exam, chart review, lab review, review of studies, review of inpatient medication list History of Present Illness The patient is a 70 year old male seen in follow up. Denies CP or SOB. Up at night to use bathroom. Denies orthopnea or PND. No dysrhythmia on telemetry. Creatinine elevated today. Allergies Coded Allergies: No Known Allergies (Verified , 11/05/16) Social History Smoking Status: Never Smoker Hx Tobacco Use In Past Year?: No Hx Alcohol Use - Type And Amou: Yes (OCC BEER) Hx Substance Use - Type And Am: No Problem List Medical Problems: (1) Cardiac ischemia Status: Acute (2) CHF (congestive heart failure) Status: Acute (3) Elevated troponin Status: Acute Review of Systems Respiratory: No cough, No dyspnea at rest, No dyspnea on exertion, No hemoptysis, No shortness of breath, No wheezing Cardiac: + edema, No PND, No chest pain, No claudication, No orthopnea Physical Exam Vital Signs Last Vital Signs Documentation Date Time Temp Pulse Resp B/P Pulse Ox O2 Delivery O2 Flow Rate FiO2 11/07/16 08:07 36.8 74 16 117/59 92 Room Air Physical Exam Constitutional: General Apperance: well-nourished Level of Distress: NAD Head: normocephalic, atraumatic Neck: supple Lungs: Auscultation: breath sounds normal, no wheezing, no rales/crackles, no rhonchi Cardiovascular: Heart Auscultation: RRR, normal S1, normal S2, no murmurs Peripheral Pulses: Radial Pulse: normal on the right Abdomen: Bowel Sounds: normal Inspection & Palpation: soft, non-distended, no tenderness, guarding & rebound Musculoskeletal: normal strength (5/5 throughout) Extremities: no cyanosis, no clubbing, no ulcers, edema (Trace B/L pedal edema) Neurologic: Gait & Station: pertinent finding (No focal motor deficit) Cranial Nerves: grossly intact Assessment and Plan Assessment and Plan FINAL IMPRESSION: 1. Late presentation of anterior myocardial infarction. - stable without exertional angina 2. Acute decompensated heart failure secondary to systolic dysfunction - patient appears compensated 3. Ischemic cardiomyopathy, ejection fraction 35-40%. 4. NATALIA on CKD secondary to diuretic therapy 5. Hypertension, controlled. 6. Transient sinus bradycardia during sleep. 7. Dyslipidemia. 8. Longstanding type 2 diabetes. PLAN AND RECOMMENDATIONS: Discontinue IV lasix and hold evening dose of enalapril. Discontinue IV heparin. Continue other cardiovascular medications as previously ordered. Repeat BMP in AM. Possible discharge in 24 hours if renal function returns to baseline. Laboratory Results Last 24 Hours Test 11/06/16 11:14 11/06/16 16:11 11/06/16 20:25 11/07/16 05:24 Bedside Glucose 129 mg/dl 123 mg/dl 123 mg/dl White Blood Count 10.37 K/uL Red Blood Count 4.39 M/uL Hemoglobin 12.9 g/dL Hematocrit 39.9 % Mean Corpuscular Volume 90.9 fL Mean Corpuscular Hemoglobin 29.4 pg Mean Corpuscular Hemoglobin Concent 32.3 g/dl RDW Standard Deviation 50.5 fL RDW Coefficient of Variation 15.1 % Platelet Count 294 K/uL Mean Platelet Volume 9.5 fL Sodium Level 139 mmol/L Potassium Level 4.5 mmol/L Chloride Level 100 mmol/L Carbon Dioxide Level 31 mmol/L Anion Gap 8.0 mmol/L Blood Urea Nitrogen 43 mg/dl Creatinine 1.70 mg/dl Est Creatinine Clear Calc Drug Dose 42.1 ml/min Estimated GFR () 46.3 Estimated GFR (Non- 40.0 BUN/Creatinine Ratio 25.3 Random Glucose 122 mg/dl Calcium Level 8.8 mg/dl Magnesium Level 2.3 mg/dl Hepatitis C Antibody Screen NEG Test 11/07/16 06:36 11/07/16 07:01 Bedside Glucose 126 mg/dl Activated Partial Thromboplast Time 51.7 SECONDS Partial Thromboplastin Ratio 2.0
[2016-11-07 11:52] VITALS: BP 108/54; PULSE 61; TEMP 36.2; O2SAT 96
[2016-11-07 15:35] VITALS: BP 105/63; PULSE 57; TEMP 36.6; O2SAT 97
[2016-11-07 19:06] VITALS: BP 107/60; PULSE 67; TEMP 36.5; O2SAT 94
[2016-11-07] MEDS: DOCUSATE SODIUM/SENNA 50/8.6MG TAB PO SCH (21:20)
[2016-11-07 23:51] VITALS: BP 100/53; PULSE 54; TEMP 36.4; O2SAT 94
[2016-11-07] MEDS: ZOLPIDEM TARTRATE 5 MG TAB PO SCH (23:53)
[2016-11-08 01:17] LABS: BASO % 0.3 %; BASO ABS # 0.03 K/uL (0-0.2); COMPLETE YES; EOS % 3.3 %; HEMATOCRIT 37.3 % (42-52); IG% 0.1 %; LYMPH % 18.3 %; LYMPH ABS # 1.67 K/uL (1.2-3.4); MEAN CORPUSCULAR HEMOGLOBIN 29.8 pg (25-34); MEAN CORPUSCULAR HGB CONC 32.7 g/dl (32-36); MEAN PLATELET VOLUME 9.2 fL (7.4-10.4); MONO % 7.9 %; NEUT % 70.1 %; PLATELET COUNT 281 K/uL (130-400); WHITE BLOOD COUNT 9.15 K/uL (4.8-10.8)
[2016-11-08 01:35] LABS: BUN/CREATININE RATIO 35.2 (10-20); CALCIUM 8.6 mg/dl (8.5-10.1); CREATININE 1.5 mg/dl (0.60-1.40); MAGNESIUM 2.5 mg/dl (1.8-2.4)
[2016-11-08 04:00] VITALS: BP 122/60; PULSE 63; TEMP 36.5; O2SAT 95
[2016-11-08 07:56] VITALS: BP 125/63; PULSE 68; TEMP 36.5; O2SAT 93
[2016-11-08] MEDS: MULTIVITAMIN TAB PO SCH (08:34)
[2016-11-08] MEDS: TAMSULOSIN HCL 0.4 MG CAP PO SCH (08:34)
[2016-11-08] MEDS: ASPIRIN 81 MG ECTAB PO SCH (08:35)
[2016-11-08] MEDS: METOPROLOL TARTRATE 25 MG TAB PO SCH (08:35)
[2016-11-08] MEDS: ATORVASTATIN 40 MG TAB PO SCH (08:35)
[2016-11-08] MEDS: INSULIN ASPART 100 UNITS/ML 3 ML PEN SC SCH (08:39)
--- NOTE | 2016-11-08 09:04 | Cardiology Follow-Up ---
Subjective General Date of Service: November 08, 2016. Pt evaluation today including: conversation w/ patient, physical exam, chart review, lab review, review of studies, conversation w/ sharepoint consultant, review of inpatient medication list History of Present Illness The patient is a 70 year old male seen in follow-up. Resting comfortably. Sinus bradycardia noted on telemetry overnight. Denies chest pain or shortness of breath. His edema has completely resolved. No orthopnea or paroxysmal nocturnal dyspnea. Anxious for discharge today. Creatinine has trended down. Diuretics on hold. Allergies Coded Allergies: No Known Allergies (Verified , 11/05/16) Social History Smoking Status: Never Smoker Hx Tobacco Use In Past Year?: No Hx Alcohol Use - Type And Amou: Yes (OCC BEER) Hx Substance Use - Type And Am: No Problem List Medical Problems: (1) Cardiac ischemia Status: Acute (2) CHF (congestive heart failure) Status: Acute (3) Elevated troponin Status: Acute Review of Systems Respiratory: No cough, No dyspnea at rest, No hemoptysis, No shortness of breath, No wheezing Cardiac: No PND, No chest pain, No edema, No orthopnea, No palpitations Physical Exam Vital Signs Last Vital Signs Documentation Date Time Temp Pulse Resp B/P Pulse Ox O2 Delivery O2 Flow Rate FiO2 11/08/16 07:56 36.5 68 16 125/63 93 Room Air Physical Exam Constitutional: General Apperance: well-nourished Level of Distress: NAD Head: normocephalic, atraumatic Neck: supple Lungs: Auscultation: breath sounds normal, no wheezing, no rales/crackles, no rhonchi Cardiovascular: Heart Auscultation: RRR, normal S1, normal S2, no murmurs Peripheral Pulses: Radial Pulse: normal on the right Abdomen: Bowel Sounds: normal Inspection & Palpation: soft, non-distended, no tenderness, guarding & rebound Musculoskeletal: normal strength (5/5 throughout) Extremities: no cyanosis, no edema, no clubbing, no ulcers Neurologic: Gait & Station: pertinent finding (No focal motor deficit) Cranial Nerves: grossly intact Assessment and Plan Assessment and Plan FINAL IMPRESSION: 1. Late presentation of anterior myocardial infarction. - stable without exertional angina 2. Acute decompensated heart failure secondary to systolic dysfunction - patient appears compensated 3. Ischemic cardiomyopathy, ejection fraction 35-40%. 4. NATALIA on CKD secondary to diuretic therapy - Creatinine trending downward 5. Hypertension, controlled, with intermittent borderline resting hypotension 6. Transient sinus bradycardia during sleep. 7. Dyslipidemia. 8. Longstanding type 2 diabetes. PLAN AND RECOMMENDATIONS: Reduce enalapril to 10 mg twice daily. Restart Lasix on Monday, 20 mg 3 days per week, Monday, Monday, Monday. Continue other cardiovascular medications as previously ordered. I will see the patient back for close follow-up in 1 week with a repeat basic metabolic panel at that time. Will sign off. Please call with questions. Laboratory Results Last 24 Hours Test 11/07/16 11:21 11/07/16 16:05 11/07/16 20:28 11/08/16 01:10 Bedside Glucose 118 mg/dl 119 mg/dl 119 mg/dl White Blood Count 9.15 K/uL Red Blood Count 4.10 M/uL Hemoglobin 12.2 g/dL Hematocrit 37.3 % Mean Corpuscular Volume 91.0 fL Mean Corpuscular Hemoglobin 29.8 pg Mean Corpuscular Hemoglobin Concent 32.7 g/dl Platelet Count 281 K/uL Mean Platelet Volume 9.2 fL Neutrophils (%) (Auto) 70.1 % Lymphocytes (%) (Auto) 18.3 % Monocytes (%) (Auto) 7.9 % Eosinophils (%) (Auto) 3.3 % Basophils (%) (Auto) 0.3 % Neutrophils # (Auto) 6.42 K/uL Lymphocytes # (Auto) 1.67 K/uL Monocytes # (Auto) 0.72 K/uL Eosinophils # (Auto) 0.30 K/uL Basophils # (Auto) 0.03 K/uL RDW Standard Deviation 49.6 fL RDW Coefficient of Variation 14.9 % Immature Granulocyte % (Auto) 0.1 % Immature Granulocyte # (Auto) 0.01 K/uL Sodium Level 140 mmol/L Potassium Level 4.0 mmol/L Chloride Level 104 mmol/L Carbon Dioxide Level 28 mmol/L Anion Gap 8.0 mmol/L Blood Urea Nitrogen 53 mg/dl Creatinine 1.50 mg/dl Est Creatinine Clear Calc Drug Dose 47.7 ml/min Estimated GFR () 53.9 Estimated GFR (Non- 46.5 BUN/Creatinine Ratio 35.2 Random Glucose 106 mg/dl Calcium Level 8.6 mg/dl Magnesium Level 2.5 mg/dl Test 11/08/16 06:50 Bedside Glucose 112 mg/dl
--- NOTE | 2016-11-08 09:13 | Progress Note ---
Internal Med Progress Note Date of Service: November 08, 2016. Provider Documentation: SUBJECTIVE: The patient was seen and examined Denies any symptoms No more bradycardia Ambulating well and wants to go home Remains stable and ready to be discharged OBJECTIVE: Vital Signs-as noted below Exam: General-No distress at rest Eyes-normal ENT-normal Neck-supple Lungs-clear to ausucltate bilaterally Heart-Regular Abdomen-Benign,no masses,bowel sound present Extremities-No edema Neuro-AAOx3 No focal neuro deficit Lab data as noted below. ASSESSMENT & PLAN: NSTEMI-About 7 to 10 days ago Pt presented c/o intermittent exertional chest pain; no known history of cardiac disease -RFs include +FmHx, DM 2, HTN, Dyslipidemia -Initial troponin elevated to >0.3 and Initial EKG changes noted -Serial Troponin did not show any increase -start IV Heparin, ASA and Metoprolol -increase statin to 80mg -consult cardiology-appreciate input -ECHO:: Left ventricular systolic function is moderately reduced. * Ejection Fraction = 35-40%. * Regional wall motion abnormalities suggest LAD territory myocardial infarction. * Aortic valve sclerosis mild, without significant aortic valvular stenosis. * Mild aortic regurgitation. * There is moderate mitral regurgitation. * There is mild tricuspid regurgitation. * Right ventricular systolic pressure is elevated at 40-50mmHg. * The inferior vena cava is mildly dilated. * Diastolic dysfunction, Grade II (pseudonormalization pattern). Patient remains stable without any symptoms Kidney function is improving Ready to be discharged today Acute on Chronic CHF -LE edema and crackles on exam -BNP>2000; CXR + trace pleural effusions bilaterally to suggest developing CHF -ECHO- EF -35 to 40% -pt received 20mg IV Lasix in ED -IV lasix discontinued Will start Lasix 20 mg Three times a week NATALIA Secondary to Use of Lasix and Lisinopril Renal function is better today Will need small dose of Lasix regularly And Lisinopril will be decreased DM 2 -recent A1C 6.8 -hold Actos and Metformin for now -start ISS HTN -BP controlled -has been on BB and ACEI -BP controlled on the lower side DYSLIPIDEMIA -check fasting lipids-noted -cont statin DVT PROPHYLAXIS -IV heparin to be continued for 24hrs more CODE STATUS -FULL CODE per discussion with patient upon admission DISPO Discussed with the Daughter Will discharge home today Vital Signs: Date Time Temp Pulse Resp B/P Pulse Ox O2 Delivery O2 Flow Rate FiO2 11/08/16 07:56 36.5 68 16 125/63 93 Room Air 11/08/16 04:00 Room Air 11/08/16 04:00 36.5 63 20 122/60 95 Room Air 11/08/16 00:00 Room Air 11/07/16 23:51 36.4 54 18 100/53 94 Room Air 11/07/16 20:00 Room Air 11/07/16 19:06 36.5 67 18 107/60 94 Room Air 11/07/16 16:00 Room Air 11/07/16 15:35 36.6 57 18 105/63 97 Room Air 11/07/16 13:00 Room Air 11/07/16 11:52 36.2 61 16 108/54 96 Room Air Lab Results: Results Past 24 Hours Test 11/07/16 11:21 11/07/16 16:05 11/07/16 20:28 11/08/16 01:10 Range/Units Bedside Glucose 118 119 119 70-99 mg/dl White Blood Count 9.15 4.8-10.8 K/uL Red Blood Count 4.10 4.7-6.1 M/uL Hemoglobin 12.2 14.0-18.0 g/dL Hematocrit 37.3 42-52 % Mean Corpuscular Volume 91.0 80-100 fL Mean Corpuscular Hemoglobin 29.8 25-34 pg Mean Corpuscular Hemoglobin Concent 32.7 32-36 g/dl Platelet Count 281 130-400 K/uL Mean Platelet Volume 9.2 7.4-10.4 fL Neutrophils (%) (Auto) 70.1 % Lymphocytes (%) (Auto) 18.3 % Monocytes (%) (Auto) 7.9 % Eosinophils (%) (Auto) 3.3 % Basophils (%) (Auto) 0.3 % Neutrophils # (Auto) 6.42 1.4-6.5 K/uL Lymphocytes # (Auto) 1.67 1.2-3.4 K/uL Monocytes # (Auto) 0.72 0.11-0.59 K/uL Eosinophils # (Auto) 0.30 0-0.5 K/uL Basophils # (Auto) 0.03 0-0.2 K/uL RDW Standard Deviation 49.6 36.4-46.3 fL RDW Coefficient of Variation 14.9 11.5-14.5 % Immature Granulocyte % (Auto) 0.1 % Immature Granulocyte # (Auto) 0.01 0.00-0.02 K/uL Sodium Level 140 136-145 mmol/L Potassium Level 4.0 3.5-5.1 mmol/L Chloride Level 104 98-107 mmol/L Carbon Dioxide Level 28 21-32 mmol/L Anion Gap 8.0 3-11 mmol/L Blood Urea Nitrogen 53 7-18 mg/dl Creatinine 1.50 0.60-1.40 mg/dl Est Creatinine Clear Calc Drug Dose 47.7 ml/min Estimated GFR () 53.9 Estimated GFR (Non- 46.5 BUN/Creatinine Ratio 35.2 10-20 Random Glucose 106 70-99 mg/dl Calcium Level 8.6 8.5-10.1 mg/dl Magnesium Level 2.5 1.8-2.4 mg/dl Test 11/08/16 06:50 Range/Units Bedside Glucose 112 70-99 mg/dl
[2016-11-08] MEDS ORDERED: LPR25 PO (09:19)
[2016-11-08] MEDS ORDERED: ASPEC81 PO (09:19)
[2016-11-08] MEDS ORDERED: VST10 PO (09:19)
[2016-11-08] MEDS ORDERED: LPT40 PO (09:19)
--- NOTE | 2016-11-08 09:21 | Discharge Instructions ---
Discharge Instructions Date of Service November 08, 2016. Admission Reason for Admission: Non-St Elevation Mi Discharge Discharge Diagnosis / Problem: NSTEMI,CHF Discharge Goals Goal(s): Prevent Disease Progression Activity Recommendations Activity Limitations: resume your previous activity . Instructions / Follow-Up Instructions / Follow-Up Dr Gross on 11/11/16 at 12:55PM.Cardiology will call with appointment Current Hospital Diet Patient's current hospital diet: AHA Diet (Heart Healthy), Low Sodium Diet (2gm Na), Diabetes Type 2 Diet Discharge Diet Recommended Diet: AHA Diet (Heart Healthy), Diabetes Type 2 Diet Fluid Restriction: 1500 ml (6 cups) Pending Studies Studies pending at discharge: no Laboratory Results Lipid Panel Test 11/06/16 04:03 Range/Units Triglycerides Level 59 0-150 mg/dl Cholesterol Level 94 0-200 mg/dl HDL Cholesterol 47 mg/dl Cholesterol/HDL Ratio 2.0 LDL Cholesterol, Calculated 35 mg/dl Medical Emergencies . Who to Call and When: Medical Emergencies: If at any time you feel your situation is an emergency, please call 911 immediately. . Non-Emergent Contact Non-Emergency issues call your: Primary Care Provider . Past History Medical & Surgical History: (1) Non-ST elevation AR (NSTEMI) (2) CHF (congestive heart failure) (3) Hypertension (4) Diabetes mellitus, type II (5) Dyslipidemia (6) Lumbar stenosis with neurogenic claudication (7) Status post total knee replacement (8) Status post lumbar surgery (9) Status post appendectomy . "Provider Documentation" section prepared by Peter Rome. . VTE Core Measure Inpt VTE Proph given/why not?: Unfractionated heparin SQ
[2016-11-08] MEDS ORDERED: FURO-85 PO (09:22)
[2016-11-08] MEDS ORDERED: METO-452 PO (10:09)
--- NOTE | 2016-11-08 10:16 | Discharge Summary ---
Discharge Summary Date of Service November 08, 2016. Discharge Summary Admission Date: November 05, 2016 at 14:10 Discharge Date: November 08, 2016 Discharge Disposition: Home Principal Diagnosis: NSTEMI,CHF Secondary Diagnoses/Problems: Please see H&P and Hospital progress note Consultations: Cardiology Medication Reconciliation New Medications: Furosemide (Lasix) 20 Mg Tab 20 MG PO UD for 30 Days, #30 TAB 1 tab three times a week.On Monday,Monday and Fridays Metoprolol Succinate (Toprol Xl) 50 Mg Tab 1 TAB PO DAILY for 30 Days, #30 TAB 5 Refills Aspirin (Aspirin EC Low Dose) 81 Mg Ectab 81 MG PO DAILY for 30 Days, #30 Atorvastatin (Atorvastatin Calcium) 40 Mg Tab 80 MG PO DAILY for 30 Days, #60 TAB Enalapril Maleate (Enalapril Maleate) 10 Mg Tab 10 MG PO BID for 30 Days, #60 TAB Continued Medications: Metformin Hcl (Glucophage) 1,000 Mg Tab 1000 MG PO BID, TAB Multivitamin (Multivitamin) Tab 1 TAB PO QAM, 0 Refills Pioglitazone (Actos) 30 Mg Tab 1 TAB PO QAM for 90 Days, #90 TAB 3 Refills Sennosides-Docusate Sodium (Stool Softener) 1 Tab Tab 2 TAB PO QPM Sildenafil Citrate (Viagra) 100 Mg Tab 100 MG PO PRN, TAB Tamsulosin Hcl (Flomax) 0.4 Mg Cap 0.4 MG PO QAM, CAP Trazodone Hcl (Trazodone) 50 Mg Tab 50 MG PO HS PRN for Sleep, TAB Discontinued Medications: Atorvastatin (Lipitor) 20 Mg Tab 20 MG PO QAM, TAB Enalapril Maleate (Enalapril Maleate) 20 Mg Tab 20 MG PO BID for 90 Days, #180 TAB 1 Refill Admission Information HPI (per Admitting provider): This is a 70 y/o male with PMHx of DM 2, HTN, Dyslipidemia and other problems as outlined below who presents to the ED c/o weakness for 3 weeks. Pt reports that he has been getting progressively more weak and tired over the past few weeks which he attributes to increasing difficulty with insomnia. His PCP prescribed trazodone to use as needed but it has not been helping. Last week patient was mowing his lawn when he developed 6/10 chest "pressure" that did not radiate anywhere. Sxs resolved after about 15 minutes of resting. When he returned to mowing the same chest discomfort returned. Since that time, patient has not experienced any more chest discomfort however he feels like "something isn't right". Daughter at bedside mentions that she has noticed a worsening wet cough as well as worsening LE swelling. Positive FmHx of cardiac disease but pt has no personal history of cardiac disease. Pt denies fever/chills, diaphoresis , chest pain, palpitations, SOB, wheezing, abd pain, N/V, bowel or bladder issues, LE edema ,calf pain, lightheadedness/dizziness. In the ED, vitals are stable. Pt is afebrile with no leukocytosis. Trop 0.36 and EKG + T wave changes in lateral leads. CXR + congestion. Pt is currently chest pain free and will be admitted for further evaluation and treatment. Past Medical/Surgical History Medical Problems: (1) Diabetes mellitus, type II Status: Chronic (2) Dyslipidemia Status: Chronic (3) Hypertension Status: Chronic (4) Lumbar stenosis with neurogenic claudication Status: Chronic Surgical Problems: (1) Status post appendectomy Status: Resolved (2) Status post lumbar surgery Status: Resolved (3) Status post total knee replacement Status: Resolved Family History Coronary artery disease MOTHER Diabetes mellitus FATHER Social History Smoking Status: Never Smoker Marital Status: single Occupational Status: employed Immunizations History of Influenza Vaccine: Yes History of Tetanus Vaccine?: No History of Pneumococcal: Unknown History of Hepatitis B Vaccine: No Allergies Coded Allergies: No Known Allergies (Verified , 11/05/16) Home Medications Scheduled Atorvastatin (Lipitor), 20 MG PO QAM Enalapril Maleate (Enalapril Maleate), 20 MG PO BID Metformin Hcl (Glucophage), 1,000 MG PO BID Multivitamin (Multivitamin), 1 TAB PO QAM Pioglitazone (Actos), 1 TAB PO QAM Sennosides-Docusate Sodium (Stool Softener), 2 TAB PO QPM Sildenafil Citrate (Viagra), 100 MG PO PRN Tamsulosin Hcl (Flomax), 0.4 MG PO QAM Scheduled PRN Trazodone Hcl (Trazodone), 50 MG PO HS PRN for Sleep Review of Systems Constitutional: + fatigue, + weakness, No chills, No fever, No sweats Eyes: No worsening of vision ENT: No hearing loss Respiratory: + cough, No shortness of breath, No sputum, No wheezing Cardiovascular: + chest pain, + edema, No claudication, No palpitations Abdomen: No constipation, No diarrhea, No nausea, No pain, No vomiting Musculoskeletal: + swelling, No calf pain Genitourinary - Male: No dysuria Neurologic: + weakness Psychiatric: No depression symptoms Endocrine: + fatigue Hematologic / Lymphatic: No abnormal bleeding/bruising Integumentary: No new/changing skin lesions Physical Ex - H&P Physical Exam Vital Signs Date Time Temp Pulse Resp B/P Pulse Ox O2 Delivery O2 Flow Rate FiO2 11/05/16 11:19 77 18 130/63 97 Room Air 11/05/16 11:04 94 Room Air 11/05/16 09:26 86 11/05/16 09:10 36.4 80 18 125/75 94 Room Air General Appearance: WD/WN, no apparent distress, + pertinent finding (Pt is laying in bed with daughter at bedside ) Head: normocephalic, atraumatic Eyes: normal inspection ENT: hearing grossly normal Neck: supple Respiratory/Chest: chest non-tender, no respiratory distress, + crackles ( bibasilar), + pertinent finding (no wheezing noted) Cardiovascular: regular rate, rhythm, no murmur Abdomen/GI: normal bowel sounds, non tender, soft Back: normal inspection Extremities/Musculoskelatal: normal inspection, no calf tenderness, + pedal edema (R>L) Neurologic/Psych: alert, normal mood/affect, oriented x 3 Skin: normal color, warm/dry Diagnostics - H&P Diagnostics Laboratory Results Results Past 24 Hours Test 11/05/16 09:25 11/05/16 09:30 11/05/16 09:39 Range/Units White Blood Count 8.06 4.8-10.8 K/uL Red Blood Count 4.34 4.7-6.1 M/uL Hemoglobin 12.8 14.0-18.0 g/dL Hematocrit 39.9 42-52 % Mean Corpuscular Volume 91.9 80-100 fL Mean Corpuscular Hemoglobin 29.5 25-34 pg Mean Corpuscular Hemoglobin Concent 32.1 32-36 g/dl Platelet Count 284 130-400 K/uL Mean Platelet Volume 9.4 7.4-10.4 fL Neutrophils (%) (Auto) 73.8 % Lymphocytes (%) (Auto) 17.5 % Monocytes (%) (Auto) 6.9 % Eosinophils (%) (Auto) 1.5 % Basophils (%) (Auto) 0.2 % Neutrophils # (Auto) 5.94 1.4-6.5 K/uL Lymphocytes # (Auto) 1.41 1.2-3.4 K/uL Monocytes # (Auto) 0.56 0.11-0.59 K/uL Eosinophils # (Auto) 0.12 0-0.5 K/uL Basophils # (Auto) 0.02 0-0.2 K/uL RDW Standard Deviation 51.6 36.4-46.3 fL RDW Coefficient of Variation 15.2 11.5-14.5 % Immature Granulocyte % (Auto) 0.1 % Immature Granulocyte # (Auto) 0.01 0.00-0.02 K/uL Prothrombin Time 10.9 9.0-12.0 SECONDS Prothromb Time International Ratio 1.0 0.9-1.1 Activated Partial Thromboplast Time 26.6 21.0-31.0 SECONDS Partial Thromboplastin Ratio 1.0 Sodium Level 144 136-145 mmol/L Potassium Level 4.2 3.5-5.1 mmol/L Chloride Level 111 98-107 mmol/L Carbon Dioxide Level 25 21-32 mmol/L Anion Gap 8.0 3-11 mmol/L Blood Urea Nitrogen 26 7-18 mg/dl Creatinine 1.10 0.60-1.40 mg/dl Estimated GFR () 78.4 Estimated GFR (Non- 67.7 BUN/Creatinine Ratio 23.8 10-20 Random Glucose 119 70-99 mg/dl Calcium Level 9.2 8.5-10.1 mg/dl Total Bilirubin 0.6 0.2-1 mg/dl Direct Bilirubin 0.2 0-0.2 mg/dl Aspartate Amino Transf (AST/SGOT) 20 15-37 U/L Alanine Aminotransferase (ALT/SGPT) 61 12-78 U/L Alkaline Phosphatase 97 45-117 U/L Total Creatine Kinase 88 39-308 U/L Creatine Kinase MB 2.9 0.5-3.6 ng/ml Creatine Kinase MB Ratio 3.3 0-3.0 Total Protein 7.4 6.4-8.2 gm/dl Albumin 4.3 3.4-5.0 gm/dl Thyroid Stimulating Hormone (TSH) 1.670 0.300-4.500 uIu/ml Free Thyroxine 0.97 0.80-1.60 ng/dl Free Triiodothyronine 3.13 2.30-4.20 pg/ml Urine Color YELLOW Urine Appearance CLEAR CLEAR Urine pH 5.0 4.5-7.5 Urine Specific [place] 1.024 1.000-1.030 Urine Protein NEG NEG Urine Glucose (UA) NEG NEG Urine Ketones TRACE NEG Urine Occult Blood NEG NEG Urine Nitrite NEG NEG Urine Bilirubin NEG NEG Urine Urobilinogen NEG NEG Urine Leukocyte Esterase NEG NEG Bedside Troponin I 0.360 0-0.045 ng/ml Diagnostic Radiology CXR IMPRESSION: Developing congestive heart failure EKG EKG: NSR at 87 bpm with T wave inversion in Lead I and T wave flattening in V5 and V6; T wave changes in lateral leads are new finding when compared to EKG from 02/12/16 Impression - H&P Impression Assessment and Plan NSTEMI pt presented c/o intermittent exertional chest pain; no known history of cardiac disease -admit to telemetry -RFs include +FmHx, DM 2, HTN, Dyslipidemia -EKG shows new T wave changes in lateral leads; repeat EKG PRN chest pain and in AM -Initial troponin is 0.36; continue to monitor with serial cardiac enzymes q6h -obtain echo to r/o cardiac wall motion abnormalities -start IV Heparin, ASA and Metoprolol -increase statin to 80mg -consult cardiology, Dr. Cuellar-appreciate input -pt is currently chest pain free -continue to monitor CHF EXACERBATION -LE edema and crackles on exam -BNP>2000; CXR + trace pleural effusions bilaterally to suggest developing CHF -obtain echo -pt received 20mg IV Lasix in ED -monitor daily weights and I&Os DM 2 -recent A1C 6.8 -hold Actos and Metformin -start ISS -monitor BSG AC HS HTN -BP controlled -cont enalapril -start metoprolol -monitor DYSLIPIDEMIA -check fasting lipids -cont statin DVT PROPHYLAXIS -IV heparin CODE STATUS -FULL CODE per discussion with patient upon admission DISPO -Observation status until further workup is complete. Pt seen in collaboration with Dr. Abdullahi. Please see her addendum for further details. Thanks! -Of note: patient will be followed by Dr. Rome starting tomorrow AM. Advanced Directives Existing Living Will: No Existing Power of Disk Sharpener: No VTE Prophylaxis VTE Risk Assessment Done? Y/N: Yes Risk Level: Moderate Physical Exam (per Admitting): General Appearance: WD/WN, no apparent distress, + pertinent finding (Pt is laying in bed with daughter at bedside ) Head: normocephalic, atraumatic Eyes: normal inspection ENT: hearing grossly normal Neck: supple Respiratory/Chest: chest non-tender, no respiratory distress, + crackles ( bibasilar), + pertinent finding (no wheezing noted) Cardiovascular: regular rate, rhythm, no murmur Abdomen/GI: normal bowel sounds, non tender, soft Back: normal inspection Extremities/Musculoskelatal: normal inspection, no calf tenderness, + pedal edema (R>L) Neurologic/Psych: alert, normal mood/affect, oriented x 3 Skin: normal color, warm/dry Hospital Course NSTEMI-About 7 to 10 days ago Pt presented c/o intermittent exertional chest pain; no known history of cardiac disease -RFs include +FmHx, DM 2, HTN, Dyslipidemia -Initial troponin elevated to >0.3 and Initial EKG changes noted -Serial Troponin did not show any increase -start IV Heparin, ASA and Metoprolol -increase statin to 80mg -consult cardiology-appreciate input -ECHO:: Left ventricular systolic function is moderately reduced. * Ejection Fraction = 35-40%. * Regional wall motion abnormalities suggest LAD territory myocardial infarction. * Aortic valve sclerosis mild, without significant aortic valvular stenosis. * Mild aortic regurgitation. * There is moderate mitral regurgitation. * There is mild tricuspid regurgitation. * Right ventricular systolic pressure is elevated at 40-50mmHg. * The inferior vena cava is mildly dilated. * Diastolic dysfunction, Grade II (pseudonormalization pattern). Patient remains stable without any symptoms Kidney function is improving Ready to be discharged today Acute on Chronic CHF -LE edema and crackles on exam -BNP>2000; CXR + trace pleural effusions bilaterally to suggest developing CHF -ECHO- EF -35 to 40% -pt received 20mg IV Lasix in ED -IV lasix discontinued Will start Lasix 20 mg Three times a week NATALIA Secondary to Use of Lasix and Lisinopril Renal function is better today Will need small dose of Lasix regularly And Lisinopril will be decreased DM 2 -recent A1C 6.8 -hold Actos and Metformin for now -start ISS HTN -BP controlled -has been on BB and ACEI -BP controlled on the lower side DYSLIPIDEMIA -check fasting lipids-noted -cont statin DVT PROPHYLAXIS -IV heparin to be continued for 24hrs more CODE STATUS -FULL CODE per discussion with patient upon admission DISPO Discussed with the Daughter Will discharge home today Total time spent on discharge = 35 minutes This includes examination of the patient, discharge planning, medication reconciliation, and communication with other providers. Discharge Instructions Date of Service November 08, 2016. Admission Reason for Admission: Non-St Elevation Mi Discharge Discharge Diagnosis / Problem: NSTEMI,CHF Discharge Goals Goal(s): Prevent Disease Progression Activity Recommendations Activity Limitations: resume your previous activity . Instructions / Follow-Up Instructions / Follow-Up Dr Gross on 11/11/16 at 12:55PM.Cardiology will call with appointment Current Hospital Diet Patient's current hospital diet: AHA Diet (Heart Healthy), Low Sodium Diet (2gm Na), Diabetes Type 2 Diet Discharge Diet Recommended Diet: AHA Diet (Heart Healthy), Diabetes Type 2 Diet Fluid Restriction: 1500 ml (6 cups) Pending Studies Studies pending at discharge: no Laboratory Results Lipid Panel Test 11/06/16 04:03 Range/Units Triglycerides Level 59 0-150 mg/dl Cholesterol Level 94 0-200 mg/dl HDL Cholesterol 47 mg/dl Cholesterol/HDL Ratio 2.0 LDL Cholesterol, Calculated 35 mg/dl Medical Emergencies . Who to Call and When: Medical Emergencies: If at any time you feel your situation is an emergency, please call 911 immediately. . Non-Emergent Contact Non-Emergency issues call your: Primary Care Provider . Past History Medical & Surgical History: (1) Non-ST elevation [place] (NSTEMI) (2) CHF (congestive heart failure) (3) Hypertension (4) Diabetes mellitus, type II (5) Dyslipidemia (6) Lumbar stenosis with neurogenic claudication (7) Status post total knee replacement (8) Status post lumbar surgery (9) Status post appendectomy . "Provider Documentation" section prepared by Peter Rome. . VTE Core Measure Inpt VTE Proph given/why not?: Unfractionated heparin SQ <Electronically signed by Peter Rome M.D.> Signed: 11/08/16 0921 Additional Copies To Ginny, Selene Reina M.D.
[2016-11-08 10:38] VITALS: BP 125/63; PULSE 68; TEMP 36.5; O2SAT 93
[2017-01-12] MEDS ORDERED: ATOR-22 PO (06:49)
[2017-01-12] MEDS ORDERED: NTRGSL/4 UT (06:49)
[2017-01-12] MEDS ORDERED: GLIP-172 PO (06:49)
[2017-01-12] MEDS ORDERED: ENAL10TA88 PO (06:49)
[2017-01-12] MEDS ORDERED: CYCL10TA6 PO (06:49)
== END 2016-11-08 11:06 | disposition home or self-care (01) | DRG 280 ==
LOC: ENRESERVDT → ENRESERVTM → C.EDB 09:08 → C.2E 14:10
PROVIDERS: ADMIT Internal Medicine; ATTEND Internal Medicine
DX: I21.4 Non-ST elevation (NSTEMI) myocardial infarction (principal); I50.23 Acute on chronic systolic (congestive) heart failure; I13.0 Hypertensive heart and chronic kidney disease with heart failure and stage 1 through stage 4 chronic kidney disease, or unspecified chronic kidney disease; N17.9 Acute kidney failure, unspecified; N18.9 Chronic kidney disease, unspecified; E11.22 Type 2 diabetes mellitus with diabetic chronic kidney disease; E78.5 Hyperlipidemia, unspecified; M48.06 Spinal stenosis, lumbar region; F17.210 Nicotine dependence, cigarettes, uncomplicated; T50.1X5A Adverse effect of loop [high-ceiling] diuretics, initial encounter; T38.3X5A Adverse effect of insulin and oral hypoglycemic [antidiabetic] drugs, initial encounter; Y92.230 Patient room in hospital as the place of occurrence of the external cause; R00.1 Bradycardia, unspecified; I25.5 Ischemic cardiomyopathy; R79.89 Other specified abnormal findings of blood chemistry; R07.89 Other chest pain; Z96.659 Presence of unspecified artificial knee joint; Z98.1 Arthrodesis status; Z83.3 Family history of diabetes mellitus; Z82.49 Family history of ischemic heart disease and other diseases of the circulatory system; Z79.899 Other long term (current) drug therapy; Z79.84 Long term (current) use of oral hypoglycemic drugs

== ENCOUNTER 2017-01-12 08:28 | Observation (INO) | payer BC ==
[~2017-01-12] VITALS: Ht 167.6 cm; Wt 91.0 kg
[2017-01-12] VITALS (12 sets, daily range): BP systolic 123–152; BP diastolic 57–83; PULSE 55–80; TEMP 36.4–36.9; O2SAT 92–100; Ht 167.6 cm; Wt 91.0 kg
[~2017-01-12 08:28] MED LIST changes: -ACET-1256 PO; +ASPEC81 PO; +CYCL10TA6 PO; +GLIP-172 PO; +LPT40 PO; +METO1TAB66 PO; +NTRGSL/4 UT; -RXC5 PO; +TRAZ50TA35 PO; +VST10 PO
[2017-01-12] MEDS ORDERED: FURO-85 PO (08:50)
[2017-01-12] MEDS ORDERED: ATOR-24 PO (08:50)
[2017-01-12] MEDS ORDERED: NITROGLYCERIN/D5W 100MCG/ML 20ML SYR ONE (09:04)
[2017-01-12] MEDS ORDERED: MIDAZOLAM HCL 1 MG/ML 2ML VIAL ONE ×3 (09:04→10:55)
[2017-01-12] MEDS ORDERED: FENTANYL CITRATE INJ 50 MCG/1 ML 2 ML VIAL ONE ×2 (09:04→10:55)
[2017-01-12] MEDS ORDERED: HEPARIN SOD (PORCINE) 1000 UNIT/ML 10 ML VIAL ONE (09:04)
[2017-01-12] MEDS ORDERED: NiCARDipine HCL INJ 2.5 MG/ML 10 ML AMP ONE (09:04)
--- NOTE | 2017-01-12 10:52 | History & Physical Bridge Note ---
H&P Re-Evaluation Bridge Note: I have examined the patient, reviewed the History & Physical and in the interval since the performance of the History & Physical I have noted the following changes of clinical significance: No changes noted
--- NOTE | 2017-01-12 10:53 | Procedure Note ---
Pre-Mod Sedation Assessment General Date of Moderate Sedation: Jan 12, 2017. Vital Signs: Vital Signs Past 12 Hours Date Time Temp Pulse Resp B/P (MAP) Pulse Ox O2 Delivery O2 Flow Rate FiO2 01/12/17 08:51 36.5 80 16 148/83 95 Room Air Review Cardiovascular: regular rate, rhythm, + pertinent finding (1+ B/L pedal edema) Abdomen: normal bowel sounds, non tender, soft Lungs: lungs clear, normal breath sounds Pre-Sedation Airway Assessment Oral Cavity: WNL Short Thick Neck: No Hx of Sleep Apnea: No Smoking Status: Never Smoker Mallampati Classification: Class III ASA Classification: Class III Procedure Planning Contraindications-for Mod Sed: None Yes Notes The planned sedation has been discussed with the patient and consent obtained. I have identified the patient, determined the appropriateness of sedation and have assessed the patient immediately prior to the procedure. All medicine(s) and interventions are by my order.
--- NOTE | 2017-01-12 10:55 | Procedure Note ---
Post-Mod Sedation Assessment General Date of Moderate Sedation Jan 12, 2017. 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 D/C Criteria Distal Pulses Present (Cardiac: Yes Groin site assessed-Card Cath: N/A Voided Prior To Discharge: N/A Discharged Patients Adult Escort/Transportation: Yes
--- NOTE | 2017-01-12 11:22 | Cardiac Catheterization ---
Procedure Note Procedure Date Jan 12, 2017. Pre-Procedure Diagnosis Positive Stress Test, CAD, Cardiomyopathy AUC Score 9 Post-Procedure Diagnosis Severe CAD Procedure(s) Performed Coronary Angiography, Left Heart Cath Superannuation Funds Manager Dr. 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 ACC Data Cardiac Status Clinical evaluation leading to the procedure CAD Presntation: Positive Stress Test Anginal Classification: CCS II Heart Failure: Yes, NYHA Class: CCS II Cardiogenic Shock w/in 24Hrs: No Cardiac Arrest w/in 24Hrs: No Imaging studies past 6 months: Yes Stress studies past 6 months: Yes Stress Echocardiogram: Yes - Positive, Risk/Extent of Ischemia (High) Coronary Anatomy Dominant: Right Left Main (% Stenosis): Ostial (20% taper), Proximal (10%), Mid (0%), Distal (0 %) LAD (% Stenosis): Proximal (90% severely calcified stenosis extending to the ostium.), Mid (SHANI 2 flow distal to proximal stenosis, moderately calcified mid segment with at least moderate disease), Distal (luminal irregularities, stenosis ranging up to 30%) D1 (% Stenosis): Ostial (90%), Proximal (30%), Mid (60%) D2 (% Stenosis): Ostial (80%), Proximal (10%), Mid (10%), Distal (10%) Circumflex (% Stenosis): Ostial (10%), Proximal (20%), Mid (10%), Distal (20%) OM1 (% Stenosis): Ostial (20%), Proximal (10%), Mid (10%), Distal (10%) OM2 (% Stenosis): Ostial (20%), Proximal (10%), Mid (10%), Distal (10%) L PL1 (% Stenosis): Ostial (10%), Proximal (10%), Mid (10%), Distal (10%) RCA (% Stenosis): Ostial (0%), Proximal (10%), Mid (20%), Distal (20%) R PDA (% Stenosis): Ostial (0%), Proximal (0%), Mid (10%), Distal (80% apical ( 1 - 1.5mm diameter)) R PL1 (% Stenosis): Ostial (0%), Proximal (10%), Mid (10%), Distal (10%) R PL2 (% Stenosis): Ostial (small vessel with luminal irregularities, 10-20%) AM (% Stenosis): Ostial (2 moderate caliber marginal branches with moderate ostial stenosis 30 - 50% and mild luminal irregularities (10%) throughout the remainder of vessel.) Ramus (% Stenosis): Ostial (80%), Mid (10%), Distal (20%), Proximal (10%)
[2017-01-12] MEDS ORDERED: CYCLOBENZAPRINE HCL 10 MG TAB PO PRN (12:00)
[2017-01-12] MEDS ORDERED: TRAZODONE HCL 50 MG TAB PO PRN (12:00)
[2017-01-12] MEDS ORDERED: ACETAMINOPHEN 325 MG TAB PO PRN (12:00)
[2017-01-12] MEDS ORDERED: NITROGLYCERIN 0.4 MG SL PER TAB CHARGE UT SCH (12:00)
[2017-01-12] MEDS ORDERED: ONDANSETRON INJ 2 MG/ML 2 ML VIAL IV PRN (12:00)
--- NOTE | 2017-01-12 12:16 | [facility] Post Operative Brief Note ---
Preliminary Procedure Note Procedure Date Jan 12, 2017. Pre-Procedure Diagnosis Positive Stress Test, CAD, Cardiomyopathy AUC Score 9 Post-Procedure Diagnosis Severe CAD Procedure(s) Performed Coronary Angiography Stabilizer Operator Interactive Web Developer(s) [employer] PALLIATIVE CARE SPECIALIST Estimated Blood Loss 10 Medication(s) Fentanyl, Heparin, Versed Preliminary Findings PCI of proximal LAD attempted. LM engaged with EBU 3.5 guide. Proximal lesion difficult to pass with wire but eventually whisper wire passed into mid LAD/1s diagonal. Unable to pass 2.0, 1.5 balloon past proximal stenosis. Decision made to stop procedure. Wires/balloons removed. Proximal LAD stenosis unchanged, TIMI2-3 flow unchanged, no apparent coronary complications. Discussed with Dr. Cuellar and will transfer to [facility] for further attempt at PCI Recommendations PCI without planned CABG Specimens None Fluids (cc crystalloids) 163 Drains None Anesthesia Moderate sedation, Monitoring nurse: Kenroy Mccullough RN, Start [phone] Procedural Complication(s) None Disposition PCU
[2017-01-12] MEDS ORDERED: IV FLUIDS COMPLETED PRN (12:45)
[2017-01-12] MEDS ORDERED: METO-217 PO (13:42)
[2017-01-12] MEDS ORDERED: ASPI81TA28 PO (13:42)
[2017-01-12] MEDS ORDERED: SODIUM CHLORIDE 0.9% 1000ML 1,000 ML IV SCH (15:00)
[2017-01-12] MEDS ORDERED: ENALAPRIL MALEATE 10 MG TAB PO SCH (21:00)
[2017-01-12] MEDS ORDERED: DOCUSATE SODIUM/SENNA 50/8.6MG TAB PO SCH (21:00)
[2017-01-13] MEDS ORDERED: ATORVASTATIN 20 MG TAB PO SCH (09:00)
[2017-01-13] MEDS ORDERED: ASPIRIN 81 MG ECTAB PO SCH ×2 (09:00)
[2017-01-13] MEDS ORDERED: TAMSULOSIN HCL 0.4 MG CAP PO SCH (09:00)
[2017-01-13] MEDS ORDERED: METOPROLOL SUCC 50MG EXT REL TAB PO SCH ×2 (09:00)
[2017-01-13] MEDS ORDERED: MULTIVITAMIN TAB PO SCH (09:00)
--- NOTE | 2017-01-19 13:59 | Discharge Summary ---
Discharge Summary Dates Admission Date / Time: Jan 12, 2017 at 12:08 Discharge Date: Jan 13, 2017 Dispostion / Condition Discharge Disposition: Acute care facility Condition at Discharge: Fair Principal Diagnosis (1) CAD (coronary artery disease) Consultations / Procedures Consultations: Interventional cardiology Procedures: Cardiac catheterization. Unsuccessful LAD PCI Admission HPI Per the Admitting provider: Patient admitted for elective catheterization which demonstrated severe LAD stenosis with associated calcification. PCI attempted, however, unsuccessful. Patient will be transferred to [facility] for PCI of LAD. Total Time Total Time Spent (min): 30 Total Time Includes: examination of the patient, discharge planning, communication with other providers Discharge Instructions ACTIVITY RECOMMENDATIONS: It is common to feel weak and fatigue for a few days. * Do not drive or operate any motorized equipment for the next three days. * Limit stair usage (2 or 3 trips a day only) for the next three days. * Do not lift anything heavier than 10 pounds for the next three days. * Do not engage in vigorous exercise or any sports for the next five days. * You may shower the day after your procedure, but do not immerse the area for three days. Cleanse the site gently with soap and water. SPECIAL CARE INSTRUCTIONS: * You may replace the pressure dressing or band-aid the morning after the procedure. * After your procedure, it is normal to have a small bruise or small lump at the site. Examine your site daily for any change in the bruise or lump, redness, swelling, drainage or numbness. Notify your doctor if any change. BLEEDING: * If there is a small amount of bleeding at the site, lie down and apply firm pressure with a clean cloth for ten minutes. When the bleeding stops, lie quietly keeping the procedure limb straight for six hours. Notify your doctor as soon as possible. * If the bleeding does not stop after ten minutes or if there is a large amount of bleeding or spurting, call 911 immediately. Continue to lie down and hold firm pressure until help arrives. SKIN IRRITATION: * You may experience some redness and/or swelling in the area where radiation was administered. If any skin irritation occurs, please contact your family physician. FOLLOW UP VISIT: Keep any scheduled doctor appointments. Copies To Primary Care Provider: Selene Gross M.D..
== END 2017-01-13 | disposition short-term general hospital (02) ==
LOC: C.CATH 08:28 → ENRESERV 12:01 → C.2E 12:08
PROVIDERS: ADMIT Internal Medicine Cardiovascular Disease; ATTEND Internal Medicine Cardiovascular Disease
DX: I25.10 Atherosclerotic heart disease of native coronary artery without angina pectoris (principal); I25.5 Ischemic cardiomyopathy; E78.5 Hyperlipidemia, unspecified; E11.9 Type 2 diabetes mellitus without complications; Z87.891 Personal history of nicotine dependence; N52.9 Male erectile dysfunction, unspecified; I10 Essential (primary) hypertension; M17.10 Unilateral primary osteoarthritis, unspecified knee; N40.1 Benign prostatic hyperplasia with lower urinary tract symptoms; I21.4 Non-ST elevation (NSTEMI) myocardial infarction; Z79.82 Long term (current) use of aspirin; Z79.84 Long term (current) use of oral hypoglycemic drugs

== ENCOUNTER 2017-09-13 16:00 | Inpatient (IN) | payer MEDICARE, OTHER ==
[~2017-09-13] VITALS: Ht 167.6 cm; Wt 87.2 kg
[~2017-09-13 16:00] MED LIST changes: -ACT30 PO; -ASPEC81 PO; +ASPI81TA28 PO; -ATOR-22 PO; +ATOR-24 PO; +FURO-85 PO; -LPT40 PO; +METO-217 PO; -METO1TAB66 PO; -SILD100T PO; -VST10 PO
--- NOTE | 2017-09-13 16:13 | EMERGENCY ROOM VISIT NOTE ---
History Report prepared by Jayce: Carlos Alberto Guillory Under the Supervision of: Dr. Cory Romero D.O. First contact with patient: 16:02 Chief Complaint: CHEST PAIN Stated Complaint: CHEST PAIN History of Present Illness The patient is a 71 year old male who presents to the Emergency Room with complaints of persistent right-sided chest pain that started around an hour and a half ago. The patient states that he has not been feeling well recently, and is very weak. He notes that his chest pain radiates through into his back, and when he coughs, the pain is really sharp. The patient is also coughing up some phlegm. He notes that he has been coughing a lot. He has a history of heart attacks with 2 stent placements, the last one being in mid-December of last year. The patient denies any nausea, vomiting, fevers, or abdominal pain. He says that he has not taken Nitroglycerin today, but did take Aspirin this morning as he does every morning. The patient says that he still has his gallbladder, but did have his appendix removed. The patient states that he got his flu shot this season as well as a pneumonia shot. Per the patient's family, the patient has been complaining of blurry vision this afternoon, and he is noted to have been a bit confused this afternoon. He notes that he is still having some of the blurry vision, and that started yesterday. The patient states that he does not smoke or drink alcohol. Source of History: patient, family Onset: An hour and a half ago Position: chest Quality: other (pain) Timing: other (persistent) Associated Symptoms: + cough, + back pain, + weakness, No fevers, No nausea , No vomiting, No abdominal pain Note: Blurry vision. A bit confused recently. Review of Systems See HPI for pertinent positives & negatives. A total of 10 systems reviewed and were otherwise negative. Past Medical & Surgical Medical Problems: (1) CAD (coronary artery disease) (2) Chest pain (3) Diabetes mellitus, type II (4) Dyslipidemia (5) Hypertension (6) Lumbar stenosis with neurogenic claudication (7) Non-ST elevation OR (NSTEMI) Surgical Problems: (1) Status post appendectomy (2) Status post lumbar surgery (3) Status post total knee replacement Family History Coronary artery disease MOTHER Diabetes mellitus FATHER Social History Smoking Status: Never Smoker Marital Status: single Housing Status: lives alone Occupation Status: employed Current/Historical Medications Scheduled Aspirin (Aspirin Ec), 81 MG PO DAILY Atorvastatin (Lipitor), 1 TAB PO DAILY Enalapril (Vasotec), 20 MG PO BID Furosemide (Lasix), 1 TAB PO MWF Glipizide (Glipizide Xl), 1 TAB PO DAILY Metformin Hcl (Glucophage), 1,000 MG PO BID Metoprolol Succinate (Toprol Xl), 50 MG PO DAILY Multivitamin (Multivitamin), 1 TAB PO QAM Nitroglycerin (Nitrostat), 0.4 MG UT PRN Sennosides-Docusate Sodium (Stool Softener), 2 TAB PO QPM Sildenafil Citrate (Viagra), 100 MG PO PRN Tamsulosin Hcl (Flomax), 0.4 MG PO QAM Scheduled PRN Cyclobenzaprine Hcl (Flexeril), 1 TAB PO TID PRN for Documentation Trazodone Hcl (Trazodone), 50 MG PO HS PRN for Sleep Allergies Coded Allergies: No Known Allergies (Verified , 09/13/17) Physical Exam Vital Signs Date Time Temp Pulse Resp B/P (MAP) Pulse Ox O2 Delivery O2 Flow Rate FiO2 09/13/17 17:52 75 16 139/70 99 Room Air 09/13/17 17:03 66 20 111/61 96 Room Air 09/13/17 16:33 69 17 129/58 98 Room Air 09/13/17 16:33 98 Room Air 09/13/17 16:30 97 Room Air 09/13/17 16:11 78 09/13/17 16:02 36.4 80 20 142/69 94 Room Air Physical Exam GENERAL: Patient is awake, alert, and in no acute distress. Patient is resting comfortably and showing no signs of anxiety EYES: Pupils were asymmetric with left larger than right. Pupils were reactive to light bilaterally. EOMI. EARS, NOSE, MOUTH AND THROAT: The nose is without any evidence of any deformity. Mucous membranes are moist tongue is midline NECK: The neck is nontender and supple. RESPIRATORY: Normal respiratory effort is noted there is no evidence of wheezing rhonchi or rales CARDIOVASCULAR: Regular rate and rhythm noted there no murmurs rubs or gallops normal S1 normal S2 GASTROINTESTINAL: The abdomen is soft. Bowel sounds are present in all quadrants. Abdomen is nontender MUSCULOSKELETAL/EXTREMITIES: There is no evidence of gross deformity full range of motion is noted in the hips and shoulders SKIN: There is no obvious evidence of any rash. There are no petechiae, pallor or cyanosis noted. NEUROLOGIC: Patient is awake alert and oriented x3 strength is symmetric, no facial droop. Medical Decision & Procedures ER Provider Diagnostic Interpretation: Radiology results as stated below per my review and radiologist interpretation: CHEST ONE VIEW PORTABLE HISTORY: Atypical CHEST PAIN COMPARISON: Chest 11/05/2016. FINDINGS: There are low lung volumes. A few linear densities at the left lung base, unchanged. This likely represents subsegmental atelectasis. The heart remains enlarged. Lumbar spinal fusion hardware is again noted. No pneumothorax. No pleural effusions. No new focal lung consolidations. No evidence for pulmonary edema. IMPRESSION: No significant change compared to the prior study. No acute process. Stable cardiomegaly. Electronically signed by: Steven Martinez M.D. 09/13/2017 4:20 PM Dictated Date/Time: 09/13/2017 4:[address] SCAN OF THE BRAIN WITHOUT IV CONTRAST CLINICAL HISTORY: Diplopia. COMPARISON STUDY: CT of the brain dated 11/17/2014. TECHNIQUE: Unenhanced axial CT scan of the brain is performed from the vertex to the skull base. A dose lowering technique was utilized adhering to the principles of ALARA. CT DOSE: 638.56 mGycm FINDINGS: Brain parenchyma: There are age-related involutional changes noting mild subcortical and periventricular microangiopathic change. There is no hemorrhage, mass effect, or evidence of acute territorial ischemia by CT criteria. Small chronic lacunar infarcts are noted in the right caudate head and the left thalamus. Cisneros-white matter is preserved. No extra-axial fluid collection is seen. Ventricles, sulci, cisterns: Prominent secondary to involutional change. Intracranial vasculature: There is atherosclerotic calcification of the cavernous carotid and vertebral arteries. Calvarium: Unremarkable. Sinuses and mastoids: Findings suggest previous sinus surgery. There is complete opacification of the left maxillary antrum. Mild mucosal thickening is seen in the right maxillary antrum. There is opacification of the right sphenoid sinus and posterior right ethmoid sinuses. Trace mucosal thickening is seen within the left sphenoid sinus and the remaining ethmoid sinuses. The mastoid air cells are well pneumatized. Orbits: The bony orbits are grossly intact. IMPRESSION: 1. There is no hemorrhage, mass effect, or evidence of acute territorial ischemia by CT criteria. 2. Paranasal sinus disease as above. Electronically signed by: Jose Castro M.D. 09/13/2017 4:32 PM Dictated Date/Time: 09/13/2017 4:29 PM Laboratory Results 09/13/17 16:15 Red Blood Count 4.80, Mean Corpuscular Volume 92.7, Mean Corpuscular Hemoglobin 31.0, Mean Corpuscular Hemoglobin Concent 33.5, Mean Platelet Volume 9.1, Neutrophils (%) (Auto) 65.7, Lymphocytes (%) (Auto) 15.4, Monocytes (%) (Auto) 17.5, Eosinophils (%) (Auto) 0.6, Basophils (%) (Auto) 0.6, Neutrophils # (Auto ) 3.08, Lymphocytes # (Auto) 0.72, Monocytes # (Auto) 0.82, Eosinophils # (Auto ) 0.03, Basophils # (Auto) 0.03 09/13/17 16:15 Test 09/13/17 16:15 09/13/17 16:30 White Blood Count 4.69 K/uL (4.8-10.8) Red Blood Count 4.80 M/uL (4.7-6.1) Hemoglobin 14.9 g/dL (14.0-18.0) Hematocrit 44.5 % (42-52) Mean Corpuscular Volume 92.7 fL (80-100) Mean Corpuscular Hemoglobin 31.0 pg (25-34) Mean Corpuscular Hemoglobin Concent 33.5 g/dl (32-36) Platelet Count 230 K/uL (130-400) Mean Platelet Volume 9.1 fL (7.4-10.4) Neutrophils (%) (Auto) 65.7 % Lymphocytes (%) (Auto) 15.4 % Monocytes (%) (Auto) 17.5 % Eosinophils (%) (Auto) 0.6 % Basophils (%) (Auto) 0.6 % Neutrophils # (Auto) 3.08 K/uL (1.4-6.5) Lymphocytes # (Auto) 0.72 K/uL (1.2-3.4) Monocytes # (Auto) 0.82 K/uL (0.11-0.59) Eosinophils # (Auto) 0.03 K/uL (0-0.5) Basophils # (Auto) 0.03 K/uL (0-0.2) RDW Standard Deviation 46.3 fL (36.4-46.3) RDW Coefficient of Variation 13.7 % (11.5-14.5) Immature Granulocyte % (Auto) 0.2 % Immature Granulocyte # (Auto) 0.01 K/uL (0.00-0.02) Prothrombin Time 10.2 SECONDS (9.0-12.0) Prothromb Time International Ratio 1.0 (0.9-1.1) Activated Partial Thromboplast Time 26.4 SECONDS (21.0-31.0) Partial Thromboplastin Ratio 1.0 Anion Gap 10.0 mmol/L (3-11) Estimated GFR () 64.2 Estimated GFR (Non- 55.4 BUN/Creatinine Ratio 17.3 (10-20) Calcium Level 9.0 mg/dl (8.5-10.1) Total Bilirubin 0.5 mg/dl (0.2-1) Direct Bilirubin 0.1 mg/dl (0-0.2) Aspartate Amino Transf (AST/SGOT) 56 U/L (15-37) Alanine Aminotransferase (ALT/SGPT) 81 U/L (12-78) Alkaline Phosphatase 95 U/L (45-117) Total Creatine Kinase 75 U/L (39-308) Creatine Kinase MB 1.5 ng/ml (0.5-3.6) Creatine Kinase MB Ratio 2.0 (0-3.0) Troponin I 0.238 ng/ml (0-0.045) Pro-B-Type Natriuretic Peptide 1788 pg/ml (0-900) Total Protein 7.7 gm/dl (6.4-8.2) Albumin 4.1 gm/dl (3.4-5.0) Lipase 132 U/L (73-393) Influenza Type A (RT-PCR) Neg for Influ A (NEG) Influenza Type B (RT-PCR) POS for Influ B (NEG) Laboratory results per my review. Medications Administered Medications (Trade) Dose Ordered Sig/Víctor Route Start Time Stop Time Status Last Admin Dose Admin Oseltamivir Phosphate (Tamiflu Cap) 75 mg NOW STAT PO 09/13/17 17:38 09/13/17 17:39 DC 09/13/17 17:51 75 MG ECG Per My Interpretation Indication: chest pain Rate (beats per minute): 77 Rhythm: normal sinus Findings: T-wave inversion (high lateral), other (no PVCs) Change: no significant change (from 11/15/16) ED Course 1604: The patient was evaluated in room A10. A complete history and physical examination were performed. 1724: Upon reevaluation, the patient is resting. I discussed results and treatment plan with him. He verbalizes agreement and understanding. The patient will be evaluated for further management and care. 173: I discussed the patient with Aurea Snow. She will evaluate the patient for further treatment. Medical Decision Differential diagnosis: Etiologies such as cardiac ischemia, aortic dissection, pulmonary embolism, pneumonia, pneumothorax, musculoskeletal, infections, pericarditis, myocarditis , esophageal rupture, gastrointestinal, as well as others were entertained. Nursing notes reviewed. Additional history is obtained from the patient's family members. The patient is a 71-year-old male who presented to the emergency department for an evaluation of chest discomfort. The patient's noticed right-sided chest pain associated with cough. His family members were concerned because he is a history of pneumonia. I discussed patient's laboratory and radiographic studies with him. He does appear to have a mild elevation in his troponin but this looks like it could be chronic in nature. The patient also had a positive flu swab. He was treated with Tamiflu. Otherwise the patient also has been complaining of diplopia. He does not have a definite extraocular muscle palsy on my exam but his pupils are somewhat asymmetric. This could be chronic. I discussed the patient's laboratory and radiographic studies [facility] Given the patient's laboratory findings and complaints I do feel he may require further inpatient management and further studies. Medication Reconcilliation Current Medication List: was personally reviewed by me Blood Pressure Screening Patient's blood pressure: Elevated blood pressure Blood pressure disposition: Elevated BP felt to be situational Consults Time Called: 1733 Consulting Physician: Aurea Snow Returned Call: 1736 I discussed the patient with Aurea Snow. She will evaluate the patient for further treatment. Impression Primary Impression: Chest pain Additional Impressions: Diplopia Elevated troponin Influenza B Scribe Attestation The scribe's documentation has been prepared under my direction and personally reviewed by me in its entirety. I confirm that the note above accurately reflects all work, treatment, procedures, and medical decision making performed by me. Departure Information Dispostion Being Evaluated By Hospitalist Referrals Selene Gross M.D. (PCP) Patient Instructions My [facility] Problem Qualifiers Primary Impression: Chest pain Chest pain type: unspecified Qualified Codes: R07.9 - Chest pain, unspecified
--- NOTE | 2017-09-13 16:21 | DIAGNOSTIC IMAGING REPORT ---
CHEST ONE VIEW PORTABLE HISTORY: Atypical CHEST PAIN COMPARISON: Chest 11/05/2016. FINDINGS: There are low lung volumes. A few linear densities at the left lung base, unchanged. This likely represents subsegmental atelectasis. The heart remains enlarged. Lumbar spinal fusion hardware is again noted. No pneumothorax. No pleural effusions. No new focal lung consolidations. No evidence for pulmonary edema. IMPRESSION: No significant change compared to the prior study. No acute process. Stable cardiomegaly. Electronically signed by: Steven Martinez M.D. 09/13/2017 4:20 PM Dictated Date/Time: 09/13/2017 4:19 PM
[2017-09-13 16:24] LABS: BASO % 0.6 %; BASO ABS # 0.03 K/uL (0-0.2); EOS % 0.6 %; EOS ABS # 0.03 K/uL (0-0.5); HEMATOCRIT 44.5 % (42-52); HEMOGLOBIN 14.9 g/dL (14.0-18.0); IG# 0.01 K/uL (0.00-0.02); LYMPH % 15.4 %; LYMPH ABS # 0.72 K/uL (1.2-3.4); MEAN CELL VOLUME 92.7 fL (80-100); MEAN CORPUSCULAR HGB CONC 33.5 g/dl (32-36); MEAN PLATELET VOLUME 9.1 fL (7.4-10.4); MONO % 17.5 %; MONO ABS # 0.82 K/uL (0.11-0.59); NEUT % 65.7 %; NEUT ABS # 3.08 K/uL (1.4-6.5); PLATELET COUNT 230 K/uL (130-400); RED CELL DISTRIBUTION WIDTH CV 13.7 % (11.5-14.5); RED CELL DISTRIBUTION WIDTH SD 46.3 fL (36.4-46.3); WHITE BLOOD COUNT 4.69 K/uL (4.8-10.8)
[2017-09-13 16:32] LABS: PTT PATIENT 26.4 SECONDS (21.0-31.0)
--- NOTE | 2017-09-13 16:34 | DIAGNOSTIC IMAGING REPORT ---
CT SCAN OF THE BRAIN WITHOUT IV CONTRAST CLINICAL HISTORY: Diplopia. COMPARISON STUDY: CT of the brain dated 11/17/2014. TECHNIQUE: Unenhanced axial CT scan of the brain is performed from the vertex to the skull base. A dose lowering technique was utilized adhering to the principles of ALARA. CT DOSE: 638.56 mGycm FINDINGS: Brain parenchyma: There are age-related involutional changes noting mild subcortical and periventricular microangiopathic change. There is no hemorrhage, mass effect, or evidence of acute territorial ischemia by CT criteria. Small chronic lacunar infarcts are noted in the right caudate head and the left thalamus. Csineros-white matter is preserved. No extra-axial fluid collection is seen. Ventricles, sulci, cisterns: Prominent secondary to involutional change. Intracranial vasculature: There is atherosclerotic calcification of the cavernous carotid and vertebral arteries. Calvarium: Unremarkable. Sinuses and mastoids: Findings suggest previous sinus surgery. There is complete opacification of the left maxillary antrum. Mild mucosal thickening is seen in the right maxillary antrum. There is opacification of the right sphenoid sinus and posterior right ethmoid sinuses. Trace mucosal thickening is seen within the left sphenoid sinus and the remaining ethmoid sinuses. The mastoid air cells are well pneumatized. Orbits: The bony orbits are grossly intact. IMPRESSION: 1. There is no hemorrhage, mass effect, or evidence of acute territorial ischemia by CT criteria. 2. Paranasal sinus disease as above. Electronically signed by: Jose Castro M.D. 09/13/2017 4:32 PM Dictated Date/Time: 09/13/2017 4:29 PM
[2017-09-13] MEDS ORDERED: SILD100T PO (16:36)
[2017-09-13 16:49] LABS: ALBUMIN 4.1 gm/dl (3.4-5.0); ALT/SGPT 81 U/L (12-78); BLOOD UREA NITROGEN 22 mg/dl (7-18); CARBON DIOXIDE 26 mmol/L (21-32); CREATININE 1.29 mg/dl (0.60-1.40); GLUCOSE 139 mg/dl (70-99); LIPASE 132 U/L (73-393); SODIUM 138 mmol/L (136-145)
[2017-09-13 16:58] LABS: ALKALINE PHOSPHATASE 95 U/L (45-117); AST/SGOT 56 U/L (15-37); CKMB 1.5 ng/ml (0.5-3.6); TOTAL PROTEIN 7.7 gm/dl (6.4-8.2)
[2017-09-13 17:25] LABS: INFLUENZA A PCR Neg for Influ A (NEG); INFLUENZA B PCR POS for Influ B (NEG)
[2017-09-13] MEDS ORDERED: OSELTAMIVIR PHOSPHATE 75 MG CAP PO STA (17:38)
[2017-09-13] MEDS ORDERED: MAGNESIUM HYDROXIDE SUSP 30 ML UDC PO PRN (18:45)
[2017-09-13] MEDS ORDERED: ACETAMINOPHEN 325 MG TAB PO PRN (18:45)
[2017-09-13] MEDS ORDERED: NITROGLYCERIN 0.4 MG SL PER TAB CHARGE SL PRN (18:45)
[2017-09-13] MEDS ORDERED: ONDANSETRON INJ 2 MG/ML 2 ML VIAL IV PRN (18:45)
[2017-09-13 19:15] VITALS: BP 153/76; PULSE 75; TEMP 36.4; O2SAT 96; BMI 32.0
[2017-09-13] MEDS ORDERED: PATIENT'S HEIGHT AND/OR WEIGHT NEEDED SCH (19:15)
[2017-09-13] MEDS ORDERED: DEXTROSE 50% 50 ML SYR IV PRN (19:15)
[2017-09-13] MEDS ORDERED: GLUCAGON FOR INJ 1 MG VIAL SQ PRN (19:15)
[2017-09-13] MEDS ORDERED: GLUCOSE 10 TABS/TUBE PO PRN (19:15)
[2017-09-13] MEDS ORDERED: GLUCOSE 40% GEL 15 GM TUBE PO PRN (19:15)
[2017-09-13] MEDS ORDERED: GLC5 PO (19:16)
[2017-09-13] MEDS ORDERED: ENAL20TA PO (19:16)
[2017-09-13] MEDS ORDERED: FURO40TA3 PO (19:16)
[2017-09-13] MEDS ORDERED: CLOP1TAB5 PO (19:16)
--- NOTE | 2017-09-13 20:01 | History and Physical ---
History & Physical Date & Time of Service: Sep 13, 2017 at 19:18 Chief Complaint: Diplopia, Elevated Troponin, Influenza B Primary Care Physician: Zainab Dickerson C.R.N.P. History of Present Illness Source: patient, family, clinic records, hospital records Pt is 71 y/o M with PMH CAD S/P APRIL LAD in 12/2016, ischemic cardiomyopathy, chronic systolic heart failure, hypertension, dyslipidemia, diabetes mellitus 2 , BPH presented to ER with complaint of cough and chest pain. Patient states 3 days ago started with cough sometimes productive of clear sputum. Also complaining of myalgias past 3 days. Denies known sick contacts. Patient reports this morning started with right-sided chest pain with coughing only. Has not used any nitro. Yesterday noticed diplopia of right eye which is continued into today. Patient reports only notices symptoms from right eye with both eyes open. States when he closes left eye no diplopia from right eye , and one closes right eye no diplopia from left eye. Denies any head injury or recent falls. Hx sinusitis recently. Denies shortness of breath, denies any noticed lower extremity edema. Reports following with wound clinic [facility], reports is healing. Was on antibiotics several weeks ago for MSSA from wound culture. Denies discharge or surrounding erythema. Denies known fever /chills, diaphoresis, N/V/D/C, SMITH, dizziness, syncope, vision loss, neck pain, SOB, orthopnea, palpitations, sore throat, choking, otalgia, abdominal pain, paresthesias, weakness, extremity edema, rashes, urinary symptoms. Patient with history of admission 10/2016 for chest pain, and STEMI, volume overload. EF at that time 35-40%. History of abnormal stress echo December 2016, EF 40-45%. History of cath December 2016 at [facility] [place] 2 APRIL to LAD. History of echo 2017 EF: 50-54%, subtle hypokinesis apical lateral wall and septum. In ER patient afebrile, pulse 80, respirations 16, BP: 139/70, 98% on RA. Positive influenza B. Troponin 0.2 (0.3 2016). Chest x-ray no acute findings. Head CT paranasal sinus disease. EKG: NSR, no ST elevations. Past Medical/Surgical History Medical Problems: (1) CAD (coronary artery disease) Permanent Comment: 12/2016 - [facility] [place] cardiac [place] - 2 APRIL LAD Status: Chronic (2) Diabetes mellitus, type II Status: Chronic (3) Dyslipidemia Status: Chronic (4) Hypertension Status: Chronic (5) Lumbar stenosis with neurogenic claudication Status: Chronic (6) Non-ST elevation VA (NSTEMI) Status: Resolved (7) Systolic heart failure, chronic Status: Chronic Surgical Problems: (1) Status post appendectomy Status: Resolved (2) Status post lumbar surgery Status: Resolved (3) Status post total knee replacement Status: Resolved Family History Coronary artery disease MOTHER Diabetes mellitus FATHER Social History Smoking Status: Never Smoker Smokeless Tobacco Use: No Alcohol Use: 1-2 beers a week Drug Use: none Marital Status: single Housing status: lives alone Occupational Status: employed Immunizations History of Influenza Vaccine: Yes History of Tetanus Vaccine?: No History of Pneumococcal: Unknown History of Hepatitis B Vaccine: No Allergies Coded Allergies: No Known Allergies (Verified , 09/13/17) Home Medications Scheduled Aspirin (Aspirin Ec), 81 MG PO DAILY Atorvastatin (Lipitor), 1 TAB PO DAILY Clopidogrel Bisulfate (Plavix), 1 TAB PO DAILY Enalapril Maleate (Enalapril Maleate), 1 TAB PO DAILY Furosemide (Lasix), 1.5 TAB PO DAILY Glipizide (Glipizide), 1 TAB PO DAILY Metformin Hcl (Glucophage), 1,000 MG PO BID Metoprolol Succinate (Toprol Xl), 50 MG PO DAILY Multivitamin (Multivitamin), 1 TAB PO QAM Nitroglycerin (Nitrostat), 0.4 MG UT PRN Sildenafil Citrate (Viagra), 100 MG PO PRN Tamsulosin Hcl (Flomax), 0.4 MG PO QAM Scheduled PRN Sennosides-Docusate Sodium (Stool Softener), 2 TAB PO QPM PRN for Constipation Review of Systems Constitutional: No weight loss Eyes: + diplopia (see HPI), No worsening of vision, No eye pain, No redness, No discharge ENT: No hearing loss, No unusual epistaxis, No sore throat, No tinnitus, No trouble swallowing Respiratory: + cough (see HPI), No wheezing, No shortness of breath, No dyspnea on exertion, No dyspnea at rest, No hemoptysis Cardiovascular: + chest pain (see HPI), No orthopnea, No PND, No edema, No palpitations Abdomen: No pain, No nausea, No vomiting, No diarrhea, No constipation, No GI bleeding Musculoskeletal: No swelling, No calf pain Genitourinary - Male: No hematuria, No dysuria, No urinary frequency, No urinary urgency Neurologic: No memory loss, No paralysis, No weakness, No numbness/tingling, No vertigo, No balance problems Psychiatric: No depression symptoms, No anxiety Endocrine: No excessive thirst, No excessive urination Hematologic / Lymphatic: No abnormal bleeding/bruising, No clotting problems, No night sweats Integumentary: + problem reported (+wound, see HPI, denies other rashes) Physical Exam Vital Signs Date Time Temp Pulse Resp B/P (MAP) Pulse Ox O2 Delivery O2 Flow Rate FiO2 09/13/17 18:51 73 22 128/69 95 Room Air 09/13/17 17:52 75 16 139/70 99 Room Air 09/13/17 17:03 66 20 111/61 96 Room Air 09/13/17 16:33 69 17 129/58 98 Room Air 09/13/17 16:33 98 Room Air 09/13/17 16:30 97 Room Air 09/13/17 16:11 78 09/13/17 16:02 36.4 80 20 142/69 94 Room Air General Appearance: WD/WN, no apparent distress Head: normocephalic, atraumatic Eyes: normal inspection, EOMI, sclerae normal, + pertinent finding (left pupil 3mm, right pupil 2mm, reactive to light) ENT: hearing grossly normal, pharynx normal, + pertinent finding (mucous membranes moist) Neck: supple, no JVD, trachea midline Respiratory/Chest: chest non-tender, lungs clear, normal breath sounds, no respiratory distress Cardiovascular: regular rate, rhythm, no murmur, normal peripheral pulses Abdomen/GI: normal bowel sounds, non tender, soft Extremities/Musculoskelatal: no calf tenderness, normal capillary refill, normal range of motion, non-tender, + pertinent finding (left anterior buitrago with approx 2 x 1.5 cm ulcer with epithelization without surrounding erythema, no purulent discharge) Neurologic/Psych: no motor/sensory deficits, alert, normal mood/affect, oriented x 3 Skin: normal color, warm/dry, + pertinent finding (see extremities) Diagnostics Laboratory Results Results Past 24 Hours Test 09/13/17 16:15 09/13/17 16:30 Range/Units White Blood Count 4.69 4.8-10.8 K/uL Red Blood Count 4.80 4.7-6.1 M/uL Hemoglobin 14.9 14.0-18.0 g/dL Hematocrit 44.5 42-52 % Mean Corpuscular Volume 92.7 80-100 fL Mean Corpuscular Hemoglobin 31.0 25-34 pg Mean Corpuscular Hemoglobin Concent 33.5 32-36 g/dl Platelet Count 230 130-400 K/uL Mean Platelet Volume 9.1 7.4-10.4 fL Neutrophils (%) (Auto) 65.7 % Lymphocytes (%) (Auto) 15.4 % Monocytes (%) (Auto) 17.5 % Eosinophils (%) (Auto) 0.6 % Basophils (%) (Auto) 0.6 % Neutrophils # (Auto) 3.08 1.4-6.5 K/uL Lymphocytes # (Auto) 0.72 1.2-3.4 K/uL Monocytes # (Auto) 0.82 0.11-0.59 K/uL Eosinophils # (Auto) 0.03 0-0.5 K/uL Basophils # (Auto) 0.03 0-0.2 K/uL RDW Standard Deviation 46.3 36.4-46.3 fL RDW Coefficient of Variation 13.7 11.5-14.5 % Immature Granulocyte % (Auto) 0.2 % Immature Granulocyte # (Auto) 0.01 0.00-0.02 K/uL Prothrombin Time 10.2 9.0-12.0 SECONDS Prothromb Time International Ratio 1.0 0.9-1.1 Activated Partial Thromboplast Time 26.4 21.0-31.0 SECONDS Partial Thromboplastin Ratio 1.0 Sodium Level 138 136-145 mmol/L Potassium Level 4.0 3.5-5.1 mmol/L Chloride Level 101 98-107 mmol/L Carbon Dioxide Level 26 21-32 mmol/L Anion Gap 10.0 3-11 mmol/L Blood Urea Nitrogen 22 7-18 mg/dl Creatinine 1.29 0.60-1.40 mg/dl Estimated GFR () 64.2 Estimated GFR (Non- 55.4 BUN/Creatinine Ratio 17.3 10-20 Random Glucose 139 70-99 mg/dl Calcium Level 9.0 8.5-10.1 mg/dl Total Bilirubin 0.5 0.2-1 mg/dl Direct Bilirubin 0.1 0-0.2 mg/dl Aspartate Amino Transf (AST/SGOT) 56 15-37 U/L Alanine Aminotransferase (ALT/SGPT) 81 12-78 U/L Alkaline Phosphatase 95 45-117 U/L Total Creatine Kinase 75 39-308 U/L Creatine Kinase MB 1.5 0.5-3.6 ng/ml Creatine Kinase MB Ratio 2.0 0-3.0 Troponin I 0.238 0-0.045 ng/ml Pro-B-Type Natriuretic Peptide 1788 0-900 pg/ml Total Protein 7.7 6.4-8.2 gm/dl Albumin 4.1 3.4-5.0 gm/dl Lipase 132 73-393 U/L Influenza Type A (RT-PCR) Neg for Influ A NEG Influenza Type B (RT-PCR) POS for Influ B NEG Diagnostic Radiology CXR: IMPRESSION: No significant change compared to the prior study. No acute process. Stable cardiomegaly. HEAD CT: IMPRESSION: 1. There is no hemorrhage, mass effect, or evidence of acute territorial ischemia by CT criteria. 2. Paranasal sinus disease as above. EKG EKG: NSR, rate 77, No ST elevation noted Impression Assessment and Plan CP/ELEVATED TROPONIN Pt with right sided CP with coughing only, started this morning. Denies SOB. EKG without ST elevation noted. Troponin 0.2. Does not appear fluid overloaded. Hx NSTEMI, Hx 2 APRIL to LAD in 12/2016. Hx elevated troponin at 0.3 during admission in 10/2016. Hx Echo 07/2017: EF: 50-54%, subtle hypokinesis apical lateral wall and septum. Pt is influenza positive today. Suspect CP is from coughing. R/O ACS. Risk factors: HTN, hyperlipidemia, DM, hx CAD. -Monitor Vitals -Repeat EKG in am -Will trend troponin -Cardiology consult -lipid panel in am, continue statin -ASA & beta jimmie -continue plavix -Nitro prn CP and repeat EKG for CP COUGH/INFLUENZA B +influenza B PCR. Pt given tamiflu in ER. No leukocytosis, no infiltrate on CXR. No wheezing on exam -Tamiflu HX CHRONIC SYSTOLIC HF Pt does not appear fluid overloaded. CXR: Stable cardiomegaly, no acute changes -Continue Lasix HTN Stable Continue Lasix, metoprolol, enalapril DIPLOPIA Patient with onset of right eye diplopia when both eyes are open, started yesterday yesterday. Denies headache, dizziness, syncope, paresthesias, neck stiffness. Anisocoria noted on exam today. Unsure if history of anisocoria. CT head: no hemorrhage, mass effect, or evidence of acute territorial ischemia. Paranasal sinus disease -ESR, CRP, TSH added -Neuro consult DM II H A1c: 7.7 on 05/09 -Hold oral meds -H A1c added for a.m. -NovoLog sliding scale per protocol DYSLIPIDEMIA Lipid panel on 01/16: Total 99, LDL: 52, HDL: 32, triglycerides: 74. -continue statin WOUND LLE Following with wound clinic [facility]. Reports wound is healing, denies or discharge. Hx wound culture was MSSA. Pt completed antibiotics one month ago. -wound nurse consult DVT Prophylaxis -heparin SQ Disposition admit tele Full Code as per discussion with pt Follows with Zainab Dickerson DIETETIC AIDE at [facility] for routine care Pt was seen with Dr Sena. See addendum Addendum: The patient was seen and examined and discussed the case with provider above. I agree with the assessment and plan as stated. The patient has a normal neuro exam with a binocular diplopia since yesterday. He has been excessively coughing. Anisocoria is present with 3 mm on the left pupil 2 mm on the right. Discussed the case with Dr. Santa who is concerned of cerebral aneurysm and/or carotid dissection. MRI/MRA of the neck was ordered overnight. CT head was negative. Agree chest pain appears consistent with flu and cough , however, trending serial enzymes is appropriate. Will defer to cardiology on further need for repeat echo. Continue Tamiflu. Nathen, DO Resuscitation Status Full Code VTE Prophylaxis Will order VTE Prophylaxis: Yes Additional Copies To Zainab Dickerson C.R.N.P.
[2017-09-13] MEDS: INSULIN ASPART 100 UNITS/ML 3 ML PEN SC SCH (20:50)
[2017-09-13] MEDS ORDERED: OSELTAMIVIR PHOSPHATE 75 MG CAP PO SCH (21:00)
[2017-09-13] MEDS ORDERED: PHARMACIST DISCHARGE MED REC CONSULT PRN ×2 (21:15→23:45)
[2017-09-13] MEDS: HEPARIN SOD 5000 UNIT/0.5 ML CARP SQ SCH (21:26)
[2017-09-13] MEDS: OSELTAMIVIR PHOSPHATE 75 MG CAP PO SCH (21:28)
[2017-09-13] MEDS ORDERED: GADAVIST IV PRN (22:30)
--- NOTE | 2017-09-13 22:34 | DIAGNOSTIC IMAGING REPORT ---
MR ANGIOGRAM OF THE NECK COMBO CLINICAL HISTORY: Diplopia. Anisocoria. COMPARISON STUDY: No priors. TECHNIQUE: Axial 3-D [id number] MR angiography of the neck is performed. Subsequently, following the IV administration of 9 cc of Gadavist. Coronal MR angiogram of the neck was performed to corroborate the findings. 3-D reformats are created and assessed. All measurements were calculated based on NASCET criteria. FINDINGS: Visualized portions of the thoracic aorta are normal in caliber. The aortic arch demonstrates bovine variant anatomy. The subclavian arteries are widely patent bilaterally. The right common carotid artery is widely patent. Atherosclerotic plaque in the carotid bulb causes approximately 50% stenosis at the origin of the right internal carotid artery. The remainder of the right internal carotid and the right external carotid artery are widely patent. The left common carotid artery is widely patent, as are the left internal and external carotid arteries. Mild atherosclerotic irregularity is noted in the carotid bulbs. Mild stenosis is questioned at the origin of both vertebral arteries. The vertebral arteries are otherwise widely patent. The vertebral arteries are codominant. The visualized intracranial vessels at the skull base appear patent. IMPRESSION: 1. There is approximately 50% stenosis at the origin of the right internal carotid artery. 2. The carotid arteries are otherwise widely patent. 3. Question stenosis at the origin of both vertebral arteries. Electronically signed by: Jose Castro M.D. 09/13/2017 10:33 PM Dictated Date/Time: 09/13/2017 10:28 PM
--- NOTE | 2017-09-13 22:42 | DIAGNOSTIC IMAGING REPORT ---
MRI OF THE BRAIN COMBO CLINICAL HISTORY: Diplopia. Anisocoria. COMPARISON STUDY: CT of the brain dated 09/13/2017. TECHNIQUE: MRI of the brain was performed utilizing various T1 and T2-weighted sequences in the axial, sagittal, and coronal planes. Contrast-enhanced sequences were acquired following the administration of 9 cc of Gadavist. FINDINGS: Brain parenchyma: There is a 10 mm focus of restricted diffusion identified in the left aspect of the miesha consistent with an acute to subacute lacunar infarct. No additional foci of acute ischemia are identified. There are age-related involutional changes noting moderate patchy subcortical and periventricular microangiopathic disease. Numerous prominent perivascular spaces are seen in the basal ganglia. There is no hemorrhage or mass effect. No enhancing mass lesion is identified on the postcontrast images. Cisneros-white matter differentiation is preserved. No extra-axial fluid collection is seen. Chronic lacunar infarcts are identified in the left thalamus and the right caudate head. The cerebellar tonsils are normal in configuration. Ventricles, sulci, and cisterns: Prominent secondary to involutional change. Pituitary and sella: Unremarkable. Intracranial vasculature: Normal flow voids are maintained at the skull base. Orbits: The bony orbits are grossly intact. Orbital contents are normal in appearance. Sinuses and mastoids: There is subtotal opacification of the left maxillary antrum. Near-complete opacification is seen in the sphenoid and posterior ethmoid sinuses. Mild mucosal thickening is seen in the right frontal sinus comment right maxillary sinus, and the anterior ethmoid sinuses. The Mastoid air cells appear clear. Calvarium: Unremarkable. Cervical cord: Partially visualized cervical spinal cord is normal in morphology and signal intensity. IMPRESSION: 1. There is an acute to subacute lacunar infarct identified in the left miesha. 2. No additional foci of acute ischemia are identified. 3. There is no hemorrhage, mass effect, or enhancing mass lesion seen. 4. Paranasal sinus disease as above. Electronically signed by: Jose Castro M.D. 09/13/2017 10:41 PM Dictated Date/Time: 09/13/2017 10:36 PM
[2017-09-13 23:48] VITALS: BP 134/69; PULSE 75; TEMP 36.7; O2SAT 92
[2017-09-14] MEDS ORDERED: ASPIRIN 325 MG ECTAB PO ONE
[2017-09-14 03:33] VITALS: BP 118/63; PULSE 63; TEMP 37.1; O2SAT 92
[2017-09-14 04:06] LABS: BASO % 0.5 %; BASO ABS # 0.02 K/uL (0-0.2); EOS ABS # 0.04 K/uL (0-0.5); HEMATOCRIT 39.9 % (42-52); HEMOGLOBIN 13.2 g/dL (14.0-18.0); IG# 0.01 K/uL (0.00-0.02); LYMPH % 28.2 %; MEAN CELL VOLUME 92.8 fL (80-100); MEAN CORPUSCULAR HEMOGLOBIN 30.7 pg (25-34); MEAN CORPUSCULAR HGB CONC 33.1 g/dl (32-36); MEAN PLATELET VOLUME 9.2 fL (7.4-10.4); MONO % 13.6 %; MONO ABS # 0.53 K/uL (0.11-0.59); NEUT % 56.4 %; PLATELET COUNT 209 K/uL (130-400); RED CELL DISTRIBUTION WIDTH CV 13.8 % (11.5-14.5); RED CELL DISTRIBUTION WIDTH SD 46.6 fL (36.4-46.3)
[2017-09-14 04:25] LABS: CALCIUM 8.8 mg/dl (8.5-10.1); CREATININE 1.05 mg/dl (0.60-1.40); POTASSIUM 3.8 mmol/L (3.5-5.1)
[2017-09-14] MEDS: HEPARIN SOD 5000 UNIT/0.5 ML CARP SQ SCH ×3 (06:35→20:54)
[2017-09-14 06:59] LABS: HEMOGLOBIN A1C 8.4 % (4.5-5.6)
[2017-09-14] MEDS: OSELTAMIVIR PHOSPHATE 75 MG CAP PO SCH ×2 (07:35→20:55)
[2017-09-14] MEDS: FUROSEMIDE 40 MG TAB PO SCH (07:36)
[2017-09-14] MEDS: MULTIVITAMIN TAB PO SCH (07:36)
[2017-09-14] MEDS: ENALAPRIL MALEATE 10 MG TAB PO SCH (07:37)
[2017-09-14] MEDS: TAMSULOSIN HCL 0.4 MG CAP PO SCH (07:37)
[2017-09-14] MEDS: METOPROLOL SUCC 50MG EXT REL TAB PO SCH (07:37)
[2017-09-14] MEDS: CLOPIDOGREL BISULFATE 75 MG TAB PO SCH (07:37)
[2017-09-14] MEDS: INSULIN ASPART 100 UNITS/ML 3 ML PEN SC SCH ×4 (07:47→20:18)
[2017-09-14 08:31] VITALS: BP 131/69; PULSE 79; TEMP 36.9; O2SAT 95
[2017-09-14] MEDS ORDERED: ATORVASTATIN 20 MG TAB PO SCH (09:00)
[2017-09-14] MEDS ORDERED: ASPIRIN 81 MG ECTAB PO SCH (09:00)
--- NOTE | 2017-09-14 10:21 | Progress Note ---
Internal Med Progress Note Date of Service: Sep 14, 2017. Provider Documentation: SUBJECTIVE: resting comfortably denies headache still has some diplopia denies chest pain or sob has cough with whitish sputum afebrile no nausea or abdominal pain OBJECTIVE: Vital Signs-as noted below Exam: General-alert and oriented. Not in distress ENT-Normal hearing Neck-no neck masses Lungs-cta b/l no wheezing or crackles Heart-S1 and S2 heard regular rate and rhythm no murmurs Abdomen-Soft bowel sounds present mild diffuse tender no distension Extremities-no edema no erythema Neuro-alert and awake and oriented moves extremities Lab data as noted below. ASSESSMENT & PLAN: CP/ELEVATED TROPONIN hx of cad s/p stent mild elevation of troponin ekg unremarkable currently asymptomatic on aspirin, Plavix, Toprol xl and statin cardiology consulted await inputs COUGH/INFLUENZA B +influenza B PCR. on Tamiflu continue same HX CHRONIC SYSTOLIC HF stable on Lasix will monitor. HTN Stable on Lasix, metoprolol, enalapril will monitor. DIPLOPIA' Acute CVA Patient with onset of right eye diplopia when both eyes are open, MRI head acute cva in left miesha MRA neck unremarkable still has some diplopia but getting better on aspirin and Plavix and statin pt/ot and speech evaluation consulted neuro-await inputs DM II H A1c: 7.7 on 05/09 Holding oral meds hba1c 8.4 on iss will monitor DYSLIPIDEMIA Lipid panel on 01/16: Total 99, LDL: 52, HDL: 32, triglycerides: 74. On statin WOUND LLE Per h and P:"Following with wound clinic [facility]. Reports wound is healing, denies or discharge. Hx wound culture was MSSA. Pt completed antibiotics one month ago. wound nurse consult" DVT Prophylaxis heparin SQ Disposition Monitor in tele Full Code as per admission To be determined Vital Signs: Date Time Temp Pulse Resp B/P (MAP) Pulse Ox O2 Delivery O2 Flow Rate FiO2 09/14/17 15:21 36.5 64 20 120/71 (87) 92 Room Air 09/14/17 12:00 Room Air 09/14/17 11:45 36.5 72 18 124/72 (89) 96 09/14/17 08:31 36.9 79 16 131/69 (89) 95 09/14/17 08:00 Room Air 09/14/17 03:33 37.1 63 20 118/63 (81) 92 Room Air 09/14/17 03:30 Room Air 09/14/17 00:29 Room Air 09/13/17 23:48 36.7 75 23 134/69 (90) 92 Room Air 09/13/17 19:15 36.4 75 18 153/76 96 Room Air 09/13/17 18:51 73 22 128/69 95 Room Air 09/13/17 17:52 75 16 139/70 99 Room Air 09/13/17 17:03 66 20 111/61 96 Room Air 09/13/17 16:33 69 17 129/58 98 Room Air 09/13/17 16:33 98 Room Air 09/13/17 16:30 97 Room Air 09/13/17 16:11 78 09/13/17 16:02 36.4 80 20 142/69 94 Room Air Lab Results: Results Past 24 Hours Test 09/13/17 16:15 09/13/17 16:30 09/13/17 20:46 09/13/17 22:44 Range/Units White Blood Count 4.69 4.8-10.8 K/uL Red Blood Count 4.80 4.7-6.1 M/uL Hemoglobin 14.9 14.0-18.0 g/dL Hematocrit 44.5 42-52 % Mean Corpuscular Volume 92.7 80-100 fL Mean Corpuscular Hemoglobin 31.0 25-34 pg Mean Corpuscular Hemoglobin Concent 33.5 32-36 g/dl Platelet Count 230 130-400 K/uL Mean Platelet Volume 9.1 7.4-10.4 fL Neutrophils (%) (Auto) 65.7 % Lymphocytes (%) (Auto) 15.4 % Monocytes (%) (Auto) 17.5 % Eosinophils (%) (Auto) 0.6 % Basophils (%) (Auto) 0.6 % Neutrophils # (Auto) 3.08 1.4-6.5 K/uL Lymphocytes # (Auto) 0.72 1.2-3.4 K/uL Monocytes # (Auto) 0.82 0.11-0.59 K/uL Eosinophils # (Auto) 0.03 0-0.5 K/uL Basophils # (Auto) 0.03 0-0.2 K/uL RDW Standard Deviation 46.3 36.4-46.3 fL RDW Coefficient of Variation 13.7 11.5-14.5 % Immature Granulocyte % (Auto) 0.2 % Immature Granulocyte # (Auto) 0.01 0.00-0.02 K/uL Erythrocyte Sedimentation Rate 15 0-14 mm/hr Prothrombin Time 10.2 9.0-12.0 SECONDS Prothromb Time International Ratio 1.0 0.9-1.1 Activated Partial Thromboplast Time 26.4 21.0-31.0 SECONDS Partial Thromboplastin Ratio 1.0 Sodium Level 138 136-145 mmol/L Potassium Level 4.0 3.5-5.1 mmol/L Chloride Level 101 98-107 mmol/L Carbon Dioxide Level 26 21-32 mmol/L Anion Gap 10.0 3-11 mmol/L Blood Urea Nitrogen 22 7-18 mg/dl Creatinine 1.29 0.60-1.40 mg/dl Estimated GFR () 64.2 Estimated GFR (Non- 55.4 BUN/Creatinine Ratio 17.3 10-20 Random Glucose 139 70-99 mg/dl Calcium Level 9.0 8.5-10.1 mg/dl Total Bilirubin 0.5 0.2-1 mg/dl Direct Bilirubin 0.1 0-0.2 mg/dl Aspartate Amino Transf (AST/SGOT) 56 15-37 U/L Alanine Aminotransferase (ALT/SGPT) 81 12-78 U/L Alkaline Phosphatase 95 45-117 U/L Total Creatine Kinase 75 39-308 U/L Creatine Kinase MB 1.5 0.5-3.6 ng/ml Creatine Kinase MB Ratio 2.0 0-3.0 Troponin I 0.238 0.277 0-0.045 ng/ml C-Reactive Protein 1.73 0-0.29 mg/dl Pro-B-Type Natriuretic Peptide 1788 0-900 pg/ml Total Protein 7.7 6.4-8.2 gm/dl Albumin 4.1 3.4-5.0 gm/dl Lipase 132 73-393 U/L Thyroid Stimulating Hormone (TSH) 0.650 0.300-4.500 uIu/ml Influenza Type A (RT-PCR) Neg for Influ A NEG Influenza Type B (RT-PCR) POS for Influ B NEG Bedside Glucose 149 70-99 mg/dl Test 09/14/17 03:47 09/14/17 06:56 3/15/18 11:16 Range/Units White Blood Count 3.90 4.8-10.8 K/uL Red Blood Count 4.30 4.7-6.1 M/uL Hemoglobin 13.2 14.0-18.0 g/dL Hematocrit 39.9 42-52 % Mean Corpuscular Volume 92.8 80-100 fL Mean Corpuscular Hemoglobin 30.7 25-34 pg Mean Corpuscular Hemoglobin Concent 33.1 32-36 g/dl Platelet Count 209 130-400 K/uL Mean Platelet Volume 9.2 7.4-10.4 fL Neutrophils (%) (Auto) 56.4 % Lymphocytes (%) (Auto) 28.2 % Monocytes (%) (Auto) 13.6 % Eosinophils (%) (Auto) 1.0 % Basophils (%) (Auto) 0.5 % Neutrophils # (Auto) 2.20 1.4-6.5 K/uL Lymphocytes # (Auto) 1.10 1.2-3.4 K/uL Monocytes # (Auto) 0.53 0.11-0.59 K/uL Eosinophils # (Auto) 0.04 0-0.5 K/uL Basophils # (Auto) 0.02 0-0.2 K/uL RDW Standard Deviation 46.6 36.4-46.3 fL RDW Coefficient of Variation 13.8 11.5-14.5 % Immature Granulocyte % (Auto) 0.3 % Immature Granulocyte # (Auto) 0.01 0.00-0.02 K/uL Sodium Level 138 136-145 mmol/L Potassium Level 3.8 3.5-5.1 mmol/L Chloride Level 105 98-107 mmol/L Carbon Dioxide Level 24 21-32 mmol/L Anion Gap 9.0 3-11 mmol/L Blood Urea Nitrogen 25 7-18 mg/dl Creatinine 1.05 0.60-1.40 mg/dl Est Creatinine Clear Calc Drug Dose 67.7 ml/min Estimated GFR () 82.4 Estimated GFR (Non- 71.1 BUN/Creatinine Ratio 24.1 10-20 Random Glucose 120 70-99 mg/dl Estimated Average Glucose 194 mg/dl Hemoglobin A1c 8.4 4.5-5.6 % Calcium Level 8.8 8.5-10.1 mg/dl Troponin I 0.217 0-0.045 ng/ml Triglycerides Level 143 0-150 mg/dl Cholesterol Level 95 0-200 mg/dl HDL Cholesterol 30 mg/dl LDL Cholesterol, Calculated 36 mg/dl VLDL Cholesterol, Calculated 29 mg/dl Cholesterol/HDL Ratio 3.2 Bedside Glucose 127 158 70-99 mg/dl
--- NOTE | 2017-09-14 11:00 | CARDIOLOGY CONSULTATION ---
DATE OF CONSULTATION: 09/14/2017 REFERRING PHYSICIAN: Randi Sena DO. REASON FOR CONSULTATION: Elevated troponin, coronary artery disease, chest pain. HISTORY OF PRESENT ILLNESS: Mr. Anand is a 71-year-old gentleman who presented to the Emergency Department with right-sided chest discomfort associated with cough times approximately 4 days. The patient has been coughing quite frequently over that time period. Denies any sputum production or fevers. Complex cardiovascular history listed below. Denies any chest discomfort that is not associated with cough. Denies exertional heaviness or tightness. Functional capacity unchanged. The patient also reports intermittent diplopia. MRI demonstrating lacunar pontine infarct. Currently, his vision has improved. Notes some issues with word finding. No other focal motor deficit. Tolerating cardiovascular medications listed below. No recent medication changes noted. ECG demonstrates no ischemic changes. Troponins are mildly elevated. Resting 2D transthoracic echo pending. Currently being treated for a left pretibial wound infection secondary to MSSA. Denies abdominal pain, diarrhea, nausea, vomiting, diaphoresis, syncope, near syncope, edema, rashes, or urinary symptoms. REVIEW OF SYSTEMS: The pertinent positive noted above, a comprehensive 10-system review is otherwise negative. PAST MEDICAL HISTORY: 1. Late presentation of STEMI, October 2016. 2. Drug-eluting stent x2 to the LAD, December 2016. 3. Ischemic cardiomyopathy, ejection fraction of 40-45%. 4. Dyslipidemia. 5. Hypertension. 6. Diabetes. 7. Erectile dysfunction. 8. Left-sided pretibial ulcer. 9. Hypertension. PAST SURGICAL HISTORY: 1. Cardiac catheterization with drug-eluting stent placement x2, December 2016. 2. Appendectomy. 3. Lumbar surgery. 4. Knee replacement. FAMILY HISTORY: Negative for premature CAD or sudden cardiac . SOCIAL HISTORY: Former tobacco abuse. Drinks 1-2 beers per week. He lives alone. ALLERGIES: No known drug allergies. CURRENT OUTPATIENT MEDICATIONS: 1. Lasix 60 mg daily. 2. Glipizide 5 mg daily. 3. Aspirin 81 mg daily. 4. Toprol-XL 50 mg daily. 5. Glucophage 1000 mg 2 times daily. 6. Flomax 0.4 mg daily. 7. Plavix 75 mg daily. 8. Lipitor 40 mg daily. 9. Enalapril 20 mg twice daily. 10. Nitrostat as needed. 11. Aspirin 81 mg daily. 12. Multivitamin daily. 13. Viagra 100 mg as needed. 14. Flexeril 10 mg 3 times daily. 15. Senokot as needed. ALLERGIES: No known drug allergies. ECHOCARDIOGRAM ON ADMISSION: Sinus rhythm, nonspecific T-wave abnormality. LABORATORY DATA: Troponin 0.277. Repeat troponin 0.217. Sodium 138, potassium 3.8, chloride 105, CO2 24, BUN is 25, creatinine is 1.05. White blood cell count 3.90, hemoglobin is 13.2, platelet count is 209. INR is 1.0. Positive influenza B infection. MRI BRAIN: Acute to subacute lacunar infarct identified in the left miesha. No additional foci of acute ischemia, no hemorrhage or mass effect or enhancing lesion, paranasal sinus disease is noted. Chest x-ray on admission: No acute process. MRA: 50% stenosis on the right internal carotid artery, questionable stenosis at the origin of both vertebral arteries. TELEMETRY: Sinus rhythm, occasional premature ventricular complexes. PHYSICAL EXAMINATION: VITAL SIGNS: Temperature is 36.9 degrees centigrade, pulse 79 beats per minute and regular, respiratory rate 16 breaths per minute, blood pressure 131/69, SaO2 is 95% on room air. GENERAL: NAD, awake, alert and oriented x3. HEENT: Mucous membranes are moist. No scleral icterus. Conjunctivae pink. NECK: Supple without JVD or HJR. No carotid bruit. HEART: Regular with a normal S1 and S2. There is no murmur, rub or gallop. LUNGS: Clear. There are no rales, rhonchi or wheeze. ABDOMEN: Soft, nontender. No rebound or guarding. Normal bowel sounds. EXTREMITIES: Warm and dry. There is a left pretibial ulcer noted, which is dressed. There is no edema, clubbing or cyanosis. NEUROLOGIC: Demonstrates mild word finding issues, no focal motor deficit appreciated. FINAL IMPRESSION: 1. A 71-year-old male admitted with musculoskeletal right-sided chest discomfort related to cough and influenza B infection. 2. Pontine cerebrovascular accident. 3. Chronic coronary artery disease with drug-eluting stent implantation x2 to left anterior descending artery, December 2016. 4. Mildly elevated troponin secondary to acute influenza infection, demand ischemia, doubt plaque rupture event. 5. Ischemic cardiomyopathy with compensated systolic heart failure. 6. Hypertension, controlled. 7. Dyslipidemia. PLAN AND RECOMMENDATIONS: The patient will continue current cardiovascular medications including aspirin, Plavix, metoprolol, atorvastatin, and enalapril. Resting 2D transthoracic echo ordered with results pending at this time. Continue to monitor telemetry for paroxysmal dysrhythmia during hospitalization. Await neurology consultation. Further recommendations pending review of testing. We will continue to follow the patient during hospitalization. Thank you for allowing me to take part in the care of your patient.
[2017-09-14 11:45] VITALS: BP 124/72; PULSE 72; TEMP 36.5; O2SAT 96
--- NOTE | 2017-09-14 14:17 | ECHOCARDIOGRAM REPORT ---
*NOTICE TO RECEIVING LIBERTARIAN AGENCY This information is strictly Confidential and protected under [place] law. [place] law prohibits you from making any further disclosure of this information unless further disclosure is expressly permitted by the written consent of the person to whom it pertains or is authorized by law. A general authorization for the release of medical or other information is not sufficient for this purpose. Hospital accepts no responsibility if the information is made available to any other person, INCLUDING THE PATIENT. Interpretation Summary * Name: BRIANNA HENDRICKS Study Date: 09/14/2017 11:28 AM BP: 124/72 mmHg * Patient Location: .2T\S\E217\S\1 HR: 60 * : 1945 (M/d/yyyy) Gender: Male Height: 66 in * Age: 71 yrs Ethnicity: CA Weight: 195 lb * Ordering Physician: Ovidio Cuellar * Referring Physician: Self, Referred * Performed By: No Kurtz RCS * * Reason For Study: CEREBRAL ISCHEMIA / EMBOLUS / ICM * BSA: 2.0 m2 * -- Conclusions -- * There is moderate concentric left ventricular hypertrophy. * There is a moderate sized apical, anteroseptal, and anterior wall motion abnormality with hypokinesis of the segments. * Left ventricular systolic function is low normal. * Left ventricular ejection Fraction = 50-55%. * The left atrium is mildly dilated. * Aortic valve sclerosis mild, without significant aortic valvular stenosis. * The aortic root diameter is normal. * The proximal ascending aorta is mildly dilated with measurement of 4 cm. * The interatrial septum is intact with no evidence for an atrial septal defect as demonstrated with the administration of agitated saline contrast. Procedure Details * A complete two-dimensional transthoracic echocardiogram was performed (2D, M-mode, Doppler and color flow Doppler). * A saline contrast injection was performed to assess for cardiac shunting. * The injection was performed through an intravenous line in the right arm. * The attending nurse who injected the saline contrast was YOGESH MARROQUIN, RN. * A total of 10 cc of agitated saline was given. Left Ventricle * The left ventricle is normal in size. * There is no evidence of LV mural thrombus. * There is moderate concentric left ventricular hypertrophy. * Left ventricular systolic function is low normal. * Ejection Fraction = 50-55%. * There is a moderate sized apical, anteroseptal, and anterior wall motion abnormality with hypokinesis of the segments. Right Ventricle * The right ventricle is normal size. * The right ventricular systolic function is normal as assessed by tricuspid annular plane systolic excursion (TAPSE) (normal >1.5 cm). Atria * The left atrium is mildly dilated. * Right atrial size is normal. * The interatrial septum is intact with no evidence for an atrial septal defect. Mitral Valve * The mitral valve is normal. * There is no mitral valve stenosis. * Significant mitral regurgitation is absent. Tricuspid Valve * The tricuspid valve is normal. * There is no tricuspid stenosis. * Significant tricuspid regurgitation is absent. Aortic Valve * The aortic valve is trileaflet. * Aortic valve sclerosis mild, without significant aortic valvular stenosis. * Aortic stenosis is absent. * Mild aortic regurgitation. Pulmonic Valve * The pulmonary valve is not well seen, but the Doppler examination is normal without significant regurgitation or stenosis. Great Vessels * The aortic root diameter is normal. The proximal ascending aorta is mildly dilated with measurement of 4 cm. Pericardium/Pleural * There is no pericardial effusion. Great Vessels * Normal inferior vena cava diameter and respiratory variation suggests normal central venous pressure. Left Ventricular Diastolic Function * Grade I diastolic dysfunction, (abnormal relaxation pattern). MMode 2D Measurements and Calculations IVSd 1.8 cm IVSs 1.6 cm LVIDd 4.4 cm LVIDs 3.5 cm LVPWd 1.4 cm LVPWs 1.7 cm IVS/LVPW 1.3 FS 20.5 % EDV(Teich) 88.7 ml ESV(Teich) 51.4 ml EF(Teich) 42.0 % EDV(cubed) 86.4 ml ESV(cubed) 43.5 ml EF(cubed) 49.7 % % IVS thick -8.33 % % LVPW thick 22.1 % LV mass(C)d 291.0 grams LV mass(C)dI 147.1 grams/m\S\2 LV mass(C)s 230.0 grams LV mass(C)sI 116.2 grams/m\S\2 SV(Teich) 37.2 ml SI(Teich) 18.8 ml/m\S\2 SV(cubed) 42.9 ml SI(cubed) 21.7 ml/m\S\2 Ao root diam 3.6 cm Ao root area 10.1 cm\S\2 LA dimension 4.3 cm asc Aorta Diam 4.0 cm LA/Ao 1.2 LVOT diam 2.1 cm LVOT area 3.5 cm\S\2 LVAd ap4 42.3 cm\S\2 LVLd ap4 8.5 cm EDV(MOD-sp4) 169.7 ml EDV(sp4-el) 178.4 ml LVAs ap4 31.3 cm\S\2 LVLs ap4 7.3 cm ESV(MOD-sp4) 110.4 ml ESV(sp4-el) 113.8 ml EF(MOD-sp4) 34.9 % EF(sp4-el) 36.2 % LVAd ap2 40.3 cm\S\2 LVLd ap2 8.7 cm EDV(MOD-sp2) 155.0 ml EDV(sp2-el) 158.2 ml LVAs ap2 28.7 cm\S\2 LVLs ap2 7.7 cm ESV(MOD-sp2) 86.1 ml ESV(sp2-el) 90.7 ml EF(MOD-sp2) 44.4 % EF(sp2-el) 42.7 % LVLd %diff 2.4 % EDV(MOD-bp) 160.5 ml LVLs %diff 4.9 % ESV(MOD-bp) 100.3 ml EF(MOD-bp) 37.6 % SV(MOD-sp4) 59.3 ml SI(MOD-sp4) 30.0 ml/m\S\2 SV(MOD-sp2) 68.9 ml SI(MOD-sp2) 34.8 ml/m\S\2 SV(MOD-bp) 60.3 ml SI(MOD-bp) 30.5 ml/m\S\2 SV(sp4-el) 64.6 ml SI(sp4-el) 32.7 ml/m\S\2 SV(sp2-el) 67.5 ml SI(sp2-el) 34.1 ml/m\S\2 Doppler Measurements and Calculations MV E max akiko 29.6 cm/sec MV A max akiko 77.6 cm/sec MV E/A 0.38 Ao V2 max 118.1 cm/sec Ao max PG 5.6 mmHg Ao max PG (full) 2.4 mmHg ANN(V,A) 2.6 cm\S\2 ANN(V,D) 2.6 cm\S\2 AI max akiko 378.7 cm/sec AI max PG 57.4 mmHg AI dec slope 157.3 cm/sec\S\2 AI P1/2t 705.1 msec LV V1 max PG 3.2 mmHg LV V1 max 88.8 cm/sec
[2017-09-14 15:15] VITALS: Ht 167.6 cm; Wt 87.2 kg
[2017-09-14 15:21] VITALS: BP 120/71; PULSE 64; TEMP 36.5; O2SAT 92
--- NOTE | 2017-09-14 15:58 | Neurology Consultation ---
Neurology Consultation Date of Consultation: Sep 14, 2017. Attending Physician: Buster Thomason MD Primary Care Physician: Zainab Dickerson C.R.N.P. Reason for Consultation: diplopia History of Present Illness Source: patient Beau is a 71 year old male with PMH CAD S/P APRIL LAD in 12/2016, ischemic cardiomyopathy, chronic systolic heart failure,HTN, , DL 2, BPH presented to ER with complaint of cough and chest pain. His symptoms started 3 days ago started with cough sometimes productive of clear sputum and myalgias 3 days. He started in the morning having right-sided chest pain with coughing only. He also noticed diplopia of right eye which is continued into today and resolves with closing one eye. He thinks the diplopia is getting better. Patient with history of admission 10/2016 for chest pain, and STEMI, volume overload. EF at that time 35-40%. History of abnormal stress echo December 2016, EF 40-45%. [place] of [place] [facility] [place]. History of echo 2017 EF: 50-54%, subtle hypokinesis apical lateral wall and septum. He states the CP is resolving and but he still feels tired. He did test positive for the flu and is in isolation. denies CP, SOB, abdominal pain, weakness, numbness tingling swallowing issues, N, V, falls, head trauma, ill contacts. Past Medical/Surgical History Medical Problems: (1) Cardiac ischemia Status: Acute (2) CHF (congestive heart failure) Status: Acute (3) Diplopia Status: Acute (4) Elevated troponin Status: Acute (5) Elevated troponin Status: Acute (6) Influenza B Status: Acute Social History Smoking Status: Former smoker Smokeless Tobacco Use: No Alcohol Use: 1-2 beers a week Drug Use: none Marital Status: single Housing Status: lives alone Occupation Status: employed Allergies Coded Allergies: No Known Allergies (Verified , 09/13/17) Current Inpatient Medications Current Inpatient Medications Medications (Trade) Dose Ordered Sig/Víctor Route Start Time Stop Time Status Last Admin Dose Admin Acetaminophen (Tylenol Tab) 650 mg Q4H PRN PO 09/13/17 18:45 10/13/17 18:44 Magnesium Hydroxide (Milk Of Magnesia Susp) 30 ml Q12H PRN PO 09/13/17 18:45 10/13/17 18:44 Ondansetron HCl (Zofran Inj) 4 mg Q6H PRN IV 09/13/17 18:45 10/13/17 18:44 Nitroglycerin (Nitrostat Tab) 0.4 mg UD PRN SL 09/13/17 18:45 10/13/17 18:44 Insulin Aspart (novoLOG ASPART) SLIDING SCALE If C... ACHS SC 09/13/17 21:00 10/13/17 20:59 09/14/17 12:25 1 UNITS Glucose (Glucose 40% Gel) 15-30 GRAMS 15 GRAMS... UD PRN PO 09/13/17 19:15 10/13/17 19:14 Glucose (Glucose Chew Tab) 4-8 Tablets 4 Tabl... UD PRN PO 09/13/17 19:15 10/13/17 19:14 Dextrose (Dextrose 50% 50ML Syringe) 25-50ML OF 50% DW IV FOR... UD PRN IV 09/13/17 19:15 10/13/17 19:14 Glucagon (Glucagon Inj) 1 mg UD PRN SQ 09/13/17 19:15 10/13/17 19:14 Aspirin (Ecotrin Tab) 81 mg DAILY PO 09/14/17 09:00 10/14/17 08:59 09/14/17 07:38 81 MG Clopidogrel Bisulfate (plAVix TAB) 75 mg DAILY PO 09/14/17 09:00 10/14/17 08:59 09/14/17 07:37 75 MG Furosemide (Lasix Tab) 60 mg DAILY PO 09/14/17 09:00 10/14/17 08:59 09/14/17 07:36 60 MG Metoprolol Succinate (Toprol Xl Tab) 50 mg DAILY PO 09/14/17 09:00 10/14/17 08:59 09/14/17 07:37 50 MG Multivitamins (Multivitamin Tab) 1 tab QAM PO 09/14/17 09:00 10/14/17 08:59 09/14/17 07:36 1 TAB Tamsulosin HCl (Flomax Cap) 0.4 mg QAM PO 09/14/17 09:00 10/14/17 08:59 09/14/17 07:37 0.4 MG Enalapril Maleate (Vasotec Tab) 20 mg DAILY PO 09/14/17 09:00 10/14/17 08:59 09/14/17 07:37 20 MG Heparin Sodium (Porcine) (Heparin Sq 5000 Unit/0.5ml) 5,000 unit Q8 SQ 09/13/17 22:00 10/13/17 21:59 09/14/17 13:46 5,000 UNIT Oseltamivir Phosphate (Tamiflu Cap) 75 mg BID PO 09/13/17 21:00 09/18/17 20:59 09/14/17 07:35 75 MG Miscellaneous Information (Pharmacist Discharge Med Rec Consult) 1 ea UD PRN N/A 09/13/17 21:15 10/13/17 21:14 Gadobutrol (Gadavist) 9 mmol UD PRN IV 09/13/17 22:30 09/17/17 22:29 Atorvastatin Calcium (Lipitor Tab) 40 mg HS PO 09/14/17 21:00 10/14/17 20:59 Physical Exam Vital Signs (Past 24 Hrs): Date Time Temp Pulse Resp B/P (MAP) Pulse Ox O2 Delivery O2 Flow Rate FiO2 09/14/17 15:21 36.5 64 20 120/71 (87) 92 Room Air 09/14/17 12:00 Room Air 09/14/17 11:45 36.5 72 18 124/72 (89) 96 09/14/17 08:31 36.9 79 16 131/69 (89) 95 09/14/17 08:00 Room Air 09/14/17 03:33 37.1 63 20 118/63 (81) 92 Room Air 09/14/17 03:30 Room Air 09/14/17 00:29 Room Air 09/13/17 23:48 36.7 75 23 134/69 (90) 92 Room Air 09/13/17 19:15 36.4 75 18 153/76 96 Room Air 09/13/17 18:51 73 22 128/69 95 Room Air 09/13/17 17:52 75 16 139/70 99 Room Air 09/13/17 17:03 66 20 111/61 96 Room Air 09/13/17 16:33 69 17 129/58 98 Room Air 09/13/17 16:33 98 Room Air 3/14/18 16:30 97 Room Air 09/13/17 16:11 78 09/13/17 16:02 36.4 80 20 142/69 94 Room Air Physical Exam: Constitutional: appearance nourished, healthy and normal Ears, Nose, Mouth and Throat: mucous membranes moist, no injection and skin normal, eyes normal Cardiovascular: normal S-1 and S-2 and regular rate and rhythm Respiratory: course breath sounds Musculoskeletal: no peripheral edema Skin: no stigmata of neurocutaneous disease noted and normal and intact Eyes: extraocular muscles intact (EOMI) and pupil unequal L 3 mm/ R 2 mm/ double vision resolves with covering one eye, corneal reflex intact bilateral, gross peripheral intact NEUROLOGIC EXAMINATION: Mental status: Alert and interactive Oriented to full date and location Oriented to person Speech fluent with no evidence of aphasia Cranial Nerves smile eye brow raise symmetric, tongue midline Reflexes: Deep tendon reflexes were symmetrical and graded 2/5. Plantar responses were flexor. Sensory: intact to cool and vibration and GT proprioception intact Coordination: finger to nose no bi pass Gait/Stance: Posture sitting up in bed Motor: Negative for pronator drift of out stretched arms with eyes closed. Strength: biceps triceps hand agile coach 5/5 bilaterally, hip flex plantar/patellar flex ext 5/ 5 bilaterally Laboratory Results Past 24 Hours: 09/14/17 03:47 Red Blood Count 4.30, Mean Corpuscular Volume 92.8, Mean Corpuscular Hemoglobin 30.7, Mean Corpuscular Hemoglobin Concent 33.1, Mean Platelet Volume 9.2, Neutrophils (%) (Auto) 56.4, Lymphocytes (%) (Auto) 28.2, Monocytes (%) (Auto) 13.6, Eosinophils (%) (Auto) 1.0, Basophils (%) (Auto) 0.5, Neutrophils # (Auto ) 2.20, Lymphocytes # (Auto) 1.10, Monocytes # (Auto) 0.53, Eosinophils # (Auto ) 0.04, Basophils # (Auto) 0.02 09/14/17 03:47 Test 09/13/17 16:15 09/13/17 16:30 09/14/17 03:47 09/14/17 11:16 Erythrocyte Sedimentation Rate 15 mm/hr (0-14) Prothrombin Time 10.2 SECONDS (9.0-12.0) Prothromb Time International Ratio 1.0 (0.9-1.1) Activated Partial Thromboplast Time 26.4 SECONDS (21.0-31.0) Partial Thromboplastin Ratio 1.0 Total Bilirubin 0.5 mg/dl (0.2-1) Direct Bilirubin 0.1 mg/dl (0-0.2) Aspartate Amino Transf (AST/SGOT) 56 U/L (15-37) Alanine Aminotransferase (ALT/SGPT) 81 U/L (12-78) Alkaline Phosphatase 95 U/L (45-117) Total Creatine Kinase 75 U/L (39-308) Creatine Kinase MB 1.5 ng/ml (0.5-3.6) Creatine Kinase MB Ratio 2.0 (0-3.0) C-Reactive Protein 1.73 mg/dl (0-0.29) Pro-B-Type Natriuretic Peptide 1788 pg/ml (0-900) Total Protein 7.7 gm/dl (6.4-8.2) Albumin 4.1 gm/dl (3.4-5.0) Lipase 132 U/L (73-393) Thyroid Stimulating Hormone (TSH) 0.650 uIu/ml (0.300-4.500) Influenza Type A (RT-PCR) Neg for Influ A (NEG) Influenza Type B (RT-PCR) POS for Influ B (NEG) White Blood Count 3.90 K/uL (4.8-10.8) Red Blood Count 4.30 M/uL (4.7-6.1) Hemoglobin 13.2 g/dL (14.0-18.0) Hematocrit 39.9 % (42-52) Mean Corpuscular Volume 92.8 fL (80-100) Mean Corpuscular Hemoglobin 30.7 pg (25-34) Mean Corpuscular Hemoglobin Concent 33.1 g/dl (32-36) Platelet Count 209 K/uL (130-400) Mean Platelet Volume 9.2 fL (7.4-10.4) Neutrophils (%) (Auto) 56.4 % Lymphocytes (%) (Auto) 28.2 % Monocytes (%) (Auto) 13.6 % Eosinophils (%) (Auto) 1.0 % Basophils (%) (Auto) 0.5 % Neutrophils # (Auto) 2.20 K/uL (1.4-6.5) Lymphocytes # (Auto) 1.10 K/uL (1.2-3.4) Monocytes # (Auto) 0.53 K/uL (0.11-0.59) Eosinophils # (Auto) 0.04 K/uL (0-0.5) Basophils # (Auto) 0.02 K/uL (0-0.2) RDW Standard Deviation 46.6 fL (36.4-46.3) RDW Coefficient of Variation 13.8 % (11.5-14.5) Immature Granulocyte % (Auto) 0.3 % Immature Granulocyte # (Auto) 0.01 K/uL (0.00-0.02) Anion Gap 9.0 mmol/L (3-11) Est Creatinine Clear Calc Drug Dose 67.7 ml/min Estimated GFR () 82.4 Estimated GFR (Non- 71.1 BUN/Creatinine Ratio 24.1 (10-20) Estimated Average Glucose 194 mg/dl Hemoglobin A1c 8.4 % (4.5-5.6) Calcium Level 8.8 mg/dl (8.5-10.1) Troponin I 0.217 ng/ml (0-0.045) Triglycerides Level 143 mg/dl (0-150) Cholesterol Level 95 mg/dl (0-200) HDL Cholesterol 30 mg/dl LDL Cholesterol, Calculated 36 mg/dl VLDL Cholesterol, Calculated 29 mg/dl Cholesterol/HDL Ratio 3.2 Bedside Glucose 158 mg/dl (70-99) Imaging TTE-There is moderate concentric left ventricular hypertrophy. * There is a moderate sized apical, anteroseptal, and anterior wall motion abnormality with hypokinesis of the segments. * Left ventricular systolic function is low normal. * Left ventricular ejection Fraction = 50-55%. * The left atrium is mildly dilated. * Aortic valve sclerosis mild, without significant aortic valvular stenosis. * The aortic root diameter is normal. * The proximal ascending aorta is mildly dilated with measurement of 4 cm. * The interatrial septum is intact with no evidence for an atrial septal defect is demonstrated with the administration of agitated saline contrast. MRA neck -There is approximately 50% stenosis at the origin of the right internal carotid artery. The carotid arteries are otherwise widely patent. Question stenosis at the origin of both vertebral arteries. MRI brain - There is a 10 mm focus of restricted diffusion identified in the left aspect of the miesha consistent with an acute to subacute lacunar infarct. No additional foci of acute ischemia are identified. There are age-related involutional changes noting moderate patchy subcortical and periventricular microangiopathic disease. Numerous prominent perivascular spaces are seen in the basal ganglia. There is no hemorrhage or mass effect. No enhancing mass lesion is identified on the postcontrast images. Cisneros-white matter differentiation is preserved. No extra-axial fluid collection is seen. Chronic lacunar infarcts are identified in the left thalamus and the right caudate head. The cerebellar tonsils are normal in configuration. Impression 71 year old male with CP/SOB and diplopia x 3 days- 10 mm focus of restricted diffusion identified in the left aspect of the miesha Plan 1. TTE - no ASD 2. MRI with 10 mm focus of restricted diffusion identified in the left aspect of the miesha 3. already on plavix 75 mg and increase aspirin to 162 mg daily 4. PT/OT speech for discharge needs 5. HTN, DL, DM need to be optimized LDL <70 6. vascular disease history no history of a fib 7. CTA head and neck ordered I have seen and discussed above patient with Dr Lynne Maher, neurology Pt seen and examined, MRI/A reviewed. Pt cannot give details of diplopia which is improving. abnl on exam include OD 2mm OS 3 mm, query L ptosis and mild clumsiness RUE. Plan increase asa to 161 mg/d, needs continued Plavix bc stent. CTA to better clarify intra- and extra-cranial vasculature. Will need outpt cardiac monitoring if inpt unrevealing. YASEMIN Maher MD
[2017-09-14] MEDS ORDERED: OPTIRAY 320 IV PRN (17:00)
[2017-09-14] MEDS: ATORVASTATIN 40 MG TAB PO SCH (20:55)
[2017-09-14 23:35] VITALS: BP 126/71; PULSE 71; TEMP 36.3; O2SAT 94
[2017-09-15 03:35] VITALS: BP 133/68; PULSE 73; TEMP 36.5; O2SAT 94
[2017-09-15] MEDS: HEPARIN SOD 5000 UNIT/0.5 ML CARP SQ SCH ×3 (06:11→21:21)
[2017-09-15 06:21] LABS: BASO % 0.2 %; BASO ABS # 0.01 K/uL (0-0.2); EOS % 1.8 %; EOS ABS # 0.09 K/uL (0-0.5); HEMATOCRIT 40.8 % (42-52); HEMOGLOBIN 13.7 g/dL (14.0-18.0); LYMPH % 27.2 %; LYMPH ABS # 1.34 K/uL (1.2-3.4); MEAN CELL VOLUME 91.9 fL (80-100); MEAN CORPUSCULAR HEMOGLOBIN 30.9 pg (25-34); MEAN CORPUSCULAR HGB CONC 33.6 g/dl (32-36); MEAN PLATELET VOLUME 9.2 fL (7.4-10.4); MONO % 10.8 %; MONO ABS # 0.53 K/uL (0.11-0.59); NEUT ABS # 2.96 K/uL (1.4-6.5); PLATELET COUNT 211 K/uL (130-400); RED CELL DISTRIBUTION WIDTH CV 13.8 % (11.5-14.5); RED CELL DISTRIBUTION WIDTH SD 46.6 fL (36.4-46.3); WHITE BLOOD COUNT 4.93 K/uL (4.8-10.8)
[2017-09-15 07:20] VITALS: BP 130/62; PULSE 73; TEMP 36.4; O2SAT 93
--- NOTE | 2017-09-15 08:10 | DIAGNOSTIC IMAGING REPORT ---
CT ANGIOGRAM OF THE BRAIN COMBO; CT ANGIOGRAM OF THE NECK CLINICAL HISTORY: Diplopia. Anisocoria. COMPARISON STUDY: CT of the brain dated 09/13/2017. MR arthrogram of the neck dated 09/13/2017. MRI of the brain dated 09/13/2017. TECHNIQUE: Unenhanced axial CT scan of the brain is performed. Subsequently, following the IV administration of 118 of Optiray 320, CT angiogram of the head and neck was performed from the aortic arch to the vertex. Images are reviewed in the axial, sagittal, and coronal planes. 3-D MIPS images are created and assessed. IV contrast was administered without complication. All measurements were calculated based on NASCET criteria. A dose lowering technique was utilized adhering to the principles of ALARA. CT DOSE: 1306.80 mGy.cm FINDINGS: Brain parenchyma: A focus of low-attenuation in the left miesha is consistent with the patient's known evolving subacute lacunar infarct. There are age-related involutional changes noting mild to moderate patchy subcortical and periventricular microangiopathic disease. A chronic lacunar infarct is identified in the right caudate head. There is no hemorrhage, mass effect, or evidence of acute territorial ischemia by CT criteria. There is no evidence of enhancing mass lesion on the angiogram phase images. The ventricles, sulci, and cisterns are normal in configuration. Cisneros-white matter differentiation is preserved. No extra-axial fluid collection is seen. Thoracic aorta: Visualized portions of the thoracic aorta are normal in caliber. The aortic arch demonstrates bovine variant anatomy. Right carotid arterial system: The right common carotid artery is widely patent. There is advanced atherosclerotic plaque and irregularity in the carotid bulb. This causes 50-75% stenosis at the origin of the right internal carotid artery. The remainder of the right internal carotid artery is widely patent. There is also stenosis at the origin of the right external carotid artery. Left carotid arterial system: The left common carotid artery is widely patent. Advanced atherosclerotic plaque is seen in the carotid bulb. This causes less than 50% luminal narrowing. The remainder of the left internal carotid artery as well as the left external carotid artery are widely patent. Vertebral arteries: There is high-grade stenosis with near complete occlusion at the origin of the right vertebral artery. The remainder of the right vertebral artery in the neck is widely patent. There is moderate stenosis at the origin of the left vertebral artery. The remainder of the left vertebral artery in the neck is widely patent. The vertebral arteries are codominant. Subclavian arteries: Widely patent bilaterally. Intracranial vasculature: There is atherosclerotic calcification of the cavernous carotid and vertebral arteries. The internal carotid arteries are patent at the skull base, as are the anterior and middle cerebral arteries bilaterally. The vertebrobasilar system and posterior cerebral arteries are widely patent. There is high-grade stenosis identified within the right vertebral artery at the skull base seen on image #32. Intracranial portions of the vertebral arteries are otherwise widely patent. The vertebral arteries appear codominant. There is no aneurysm or focal vessel cut off seen throughout the intracranial circulation. Jugular veins: Widely patent bilaterally. Dural sinuses: Patent. Lung apices: Partially visualized upper lobe lung parenchyma appears clear. Soft tissues: The visualized pharyngeal soft tissues are normal in appearance noting angiographic phase technique. The oropharyngeal airway appears widely patent. Subcentimeter low-attenuation thyroid nodules are identified. The salivary glands are normal in appearance. No cervical lymphadenopathy is seen. Skeletal structures: The skeletal structures are osteopenic. The calvarium appears intact. The cervical spine is maintained noting multilevel spondylosis. Sinuses and mastoids: There is subtotal opacification of the left maxillary antrum. There is complete opacification of the right sphenoid sinus and posterior right ethmoid sinuses. Mild mucosal thickening seen within the right maxillary antrum, the left-sided sinus, and the anterior right ethmoid sinuses. The mastoid air cells are well pneumatized. IMPRESSION: 1. There is no hemorrhage, mass effect, or evidence of acute territorial ischemia by CT criteria. 2. There is a focus of low-attenuation in the left miesha consistent with the patient's known evolving subacute lacunar infarct. 3. There is high-grade stenosis of the intracranial portion of the right vertebral artery at the skull base. 4. The remaining intracranial vessels are widely patent. 5. There is high-grade stenosis with near complete occlusion at the origin of the right vertebral artery. 6. There is moderate stenosis at the origin of the left vertebral artery. 7. There is advanced atherosclerotic plaque with 50-75% stenosis at the origin of the right internal carotid artery. The remainder of the right internal carotid artery is widely patent. 8. Atherosclerotic plaque causes less than 50% luminal narrowing at the origin of the left internal carotid artery. 9. Paranasal sinus disease as above. Electronically signed by: Jose Castro M.D. 09/14/2017 5:42 PM Dictated Date/Time: 09/14/2017 5:22 PM
[2017-09-15] MEDS: MULTIVITAMIN TAB PO SCH (09:40)
[2017-09-15] MEDS: ENALAPRIL MALEATE 10 MG TAB PO SCH (09:40)
[2017-09-15] MEDS: METOPROLOL SUCC 50MG EXT REL TAB PO SCH (09:40)
[2017-09-15] MEDS: CLOPIDOGREL BISULFATE 75 MG TAB PO SCH (09:40)
[2017-09-15] MEDS: TAMSULOSIN HCL 0.4 MG CAP PO SCH (09:41)
[2017-09-15] MEDS: FUROSEMIDE 40 MG TAB PO SCH (09:41)
[2017-09-15] MEDS: ASPIRIN 81 MG ECTAB PO SCH (09:41)
[2017-09-15] MEDS: OSELTAMIVIR PHOSPHATE 75 MG CAP PO SCH ×2 (09:42→21:17)
[2017-09-15] MEDS: INSULIN ASPART 100 UNITS/ML 3 ML PEN SC SCH ×4 (09:43→21:00)
--- NOTE | 2017-09-15 09:45 | Cardiology Follow-Up ---
Subjective General Date of Service: Sep 15, 2017. Pt evaluation today including: conversation w/ patient, physical exam, chart review, lab review, review of studies, review of inpatient medication list History of Present Illness The patient is a 71 year old male seen in follow-up. Diplopia has resolved. Denies chest discomfort or shortness of breath. No evidence of atrial fibrillation or atrial flutter on telemetry. CT angiography of the head and neck demonstrates moderate right internal carotid artery stenosis and high-grade stenosis with near complete occlusion at the origin of the right vertebral artery. Patient offers no new complaints at this time. Allergies Coded Allergies: No Known Allergies (Verified , 09/13/17) Social History Smoking Status: Never Smoker Hx Tobacco Use In Past Year?: No Hx Alcohol Use - Type And Amou: Yes (Socially ) Hx Substance Use - Type And Am: No Problem List Medical Problems: (1) Cardiac ischemia Status: Acute (2) CHF (congestive heart failure) Status: Acute (3) Diplopia Status: Acute (4) Elevated troponin Status: Acute (5) Elevated troponin Status: Acute (6) Influenza B Status: Acute Review of Systems Respiratory: No cough, No sputum, No wheezing, No shortness of breath, No dyspnea at rest, No hemoptysis Cardiac: No chest pain, No orthopnea, No edema, No palpitations Physical Exam Vital Signs Last Vital Signs Documentation Date Time Temp Pulse Resp B/P (MAP) Pulse Ox O2 Delivery O2 Flow Rate FiO2 09/15/17 07:20 36.4 73 20 130/62 (84) 93 Room Air Physical Exam Constitutional: General Apperance: heathly-appearing Level of Distress: NAD Head: normocephalic, atraumatic Lungs: Auscultation: breath sounds normal, no wheezing, no rales/crackles, no rhonchi Cardiovascular: Heart Auscultation: RRR, normal S1, normal S2, no murmurs Peripheral Pulses: Bruits: none appreciated Carotid Pulse: normal on the left, normal on the right Radial Pulse: normal on the right Extremities: no cyanosis, no edema, ulcers (right pretibial ) Neurologic: Gait & Station: pertinent finding Assessment and Plan Assessment and Plan FINAL IMPRESSION: 1. A 71-year-old male admitted with musculoskeletal right-sided chest discomfort related to cough secondary to influenza B infection. 2. 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 3. Chronic coronary artery disease with drug-eluting stent implantation x2 to left anterior descending artery, December 2016. 4. Mildly elevated troponin secondary to acute influenza infection, demand ischemia. Not indicative of plaque rupture event. 5. Ischemic cardiomyopathy with compensated heart failure. -Low normal systolic function 6. Hypertension, controlled. 7. Dyslipidemia. PLAN AND RECOMMENDATIONS: Continue medical management with aspirin, Plavix, metoprolol, atorvastatin, and enalapril. Continue to monitor telemetry. Will arrange for 14 day ZIO monitor at time of discharge. Await neurology input. Will continue to follow during hospitalization. Laboratory Results Last 24 Hours Test 09/14/17 11:16 09/14/17 16:27 09/14/17 20:00 09/15/17 05:54 Bedside Glucose 158 mg/dl 118 mg/dl 121 mg/dl White Blood Count 4.93 K/uL Red Blood Count 4.44 M/uL Hemoglobin 13.7 g/dL Hematocrit 40.8 % Mean Corpuscular Volume 91.9 fL Mean Corpuscular Hemoglobin 30.9 pg Mean Corpuscular Hemoglobin Concent 33.6 g/dl Platelet Count 211 K/uL Mean Platelet Volume 9.2 fL Neutrophils (%) (Auto) 60.0 % Lymphocytes (%) (Auto) 27.2 % Monocytes (%) (Auto) 10.8 % Eosinophils (%) (Auto) 1.8 % Basophils (%) (Auto) 0.2 % Neutrophils # (Auto) 2.96 K/uL Lymphocytes # (Auto) 1.34 K/uL Monocytes # (Auto) 0.53 K/uL Eosinophils # (Auto) 0.09 K/uL Basophils # (Auto) 0.01 K/uL RDW Standard Deviation 46.6 fL RDW Coefficient of Variation 13.8 % Immature Granulocyte % (Auto) 0.0 % Immature Granulocyte # (Auto) 0.00 K/uL Test 09/15/17 06:26 Bedside Glucose 136 mg/dl
[2017-09-15 12:00] VITALS: BP 109/66; PULSE 67; TEMP 36.7; O2SAT 94
--- NOTE | 2017-09-15 13:04 | Neurology Progress Notes ---
Neurology Progress Note Date of Service Sep 15, 2017. Cory Yanez is a 71 year old male with PMH CAD S/P APRIL LAD in 12/2016, ischemic cardiomyopathy, chronic systolic heart failure,HTN, , DL 2, BPH presented to ER with complaint of cough and chest pain. His symptoms started 3 days ago started with cough sometimes productive of clear sputum and myalgias 3 days. He started in the morning having right-sided chest pain with coughing only. He also noticed diplopia of right eye which is continued into today and resolves with closing one eye. He thinks the diplopia is getting better. Patient with history of admission 10/2016 for chest pain, and STEMI, volume overload. EF at that time 35-40%. History of abnormal stress echo December 2016, EF 40-45%. [place] [facility] [place]. History of echo 2017 EF: 50-54%, subtle hypokinesis apical lateral wall and septum. He states the double vision is resolved and he no longer had CP. denies CP, SOB , abdominal pain, weakness, numbness tingling swallowing issues, N, V, falls, head trauma, ill contacts. Objective Date Time Temp Pulse Resp B/P (MAP) Pulse Ox O2 Delivery O2 Flow Rate FiO2 09/15/17 12:00 36.7 67 18 109/66 (80) 94 Room Air 09/15/17 08:00 Room Air 09/15/17 07:20 36.4 73 20 130/62 (84) 93 Room Air 09/15/17 03:35 36.5 73 19 133/68 (89) 94 Room Air 09/15/17 03:05 Room Air 09/14/17 23:35 36.3 71 19 126/71 (89) 94 Room Air 09/14/17 23:30 Room Air 09/14/17 20:00 Room Air 09/14/17 16:00 Room Air 09/14/17 15:21 36.5 64 20 120/71 (87) 92 Room Air Last 24 Hours Test 09/14/17 16:27 09/14/17 20:00 09/15/17 05:54 09/15/17 06:26 Bedside Glucose 118 mg/dl 121 mg/dl 136 mg/dl White Blood Count 4.93 K/uL Red Blood Count 4.44 M/uL Hemoglobin 13.7 g/dL Hematocrit 40.8 % Mean Corpuscular Volume 91.9 fL Mean Corpuscular Hemoglobin 30.9 pg Mean Corpuscular Hemoglobin Concent 33.6 g/dl Platelet Count 211 K/uL Mean Platelet Volume 9.2 fL Neutrophils (%) (Auto) 60.0 % Lymphocytes (%) (Auto) 27.2 % Monocytes (%) (Auto) 10.8 % Eosinophils (%) (Auto) 1.8 % Basophils (%) (Auto) 0.2 % Neutrophils # (Auto) 2.96 K/uL Lymphocytes # (Auto) 1.34 K/uL Monocytes # (Auto) 0.53 K/uL Eosinophils # (Auto) 0.09 K/uL Basophils # (Auto) 0.01 K/uL RDW Standard Deviation 46.6 fL RDW Coefficient of Variation 13.8 % Immature Granulocyte % (Auto) 0.0 % Immature Granulocyte # (Auto) 0.00 K/uL Test 09/15/17 11:17 Bedside Glucose 166 mg/dl Imaging: CTA head- There is high-grade stenosis of the intracranial portion of the right vertebral artery at the skull base. The remaining intracranial vessels are widely patent. There is high-grade stenosis with near complete occlusion at the origin of the right vertebral artery. There is moderate stenosis at the origin of the left vertebral artery. There is advanced atherosclerotic plaque with 50-75% stenosis at the origin of the right internal carotid artery. The remainder of the right internal carotid artery is widely patent. Atherosclerotic plaque causes less than 50% luminal narrowing at the origin of the left internal carotid artery. Paranasal sinus disease as above. Current Inpatient Medications Medications (Trade) Dose Ordered Sig/Víctor Route Start Time Stop Time Status Last Admin Dose Admin Acetaminophen (Tylenol Tab) 650 mg Q4H PRN PO 09/13/17 18:45 10/13/17 18:44 Magnesium Hydroxide (Milk Of Magnesia Susp) 30 ml Q12H PRN PO 09/13/17 18:45 10/13/17 18:44 Ondansetron HCl (Zofran Inj) 4 mg Q6H PRN IV 09/13/17 18:45 10/13/17 18:44 Nitroglycerin (Nitrostat Tab) 0.4 mg UD PRN SL 09/13/17 18:45 10/13/17 18:44 Insulin Aspart (novoLOG ASPART) SLIDING SCALE If C... ACHS SC 09/13/17 21:00 10/13/17 20:59 09/15/17 09:43 5 UNITS Glucose (Glucose 40% Gel) 15-30 GRAMS 15 GRAMS... UD PRN PO 09/13/17 19:15 10/13/17 19:14 Glucose (Glucose Chew Tab) 4-8 Tablets 4 Tabl... UD PRN PO 09/13/17 19:15 10/13/17 19:14 Dextrose (Dextrose 50% 50ML Syringe) 25-50ML OF 50% DW IV FOR... UD PRN IV 09/13/17 19:15 10/13/17 19:14 Glucagon (Glucagon Inj) 1 mg UD PRN SQ 09/13/17 19:15 10/13/17 19:14 Clopidogrel Bisulfate (plAVix TAB) 75 mg DAILY PO 09/14/17 09:00 10/14/17 08:59 09/15/17 09:40 75 MG Furosemide (Lasix Tab) 60 mg DAILY PO 09/14/17 09:00 10/14/17 08:59 09/14/17 07:36 60 MG Metoprolol Succinate (Toprol Xl Tab) 50 mg DAILY PO 09/14/17 09:00 10/14/17 08:59 09/15/17 09:40 50 MG Multivitamins (Multivitamin Tab) 1 tab QAM PO 09/14/17 09:00 10/14/17 08:59 09/15/17 09:40 1 TAB Tamsulosin HCl (Flomax Cap) 0.4 mg QAM PO 09/14/17 09:00 10/14/17 08:59 09/15/17 09:41 0.4 MG Enalapril Maleate (Vasotec Tab) 20 mg DAILY PO 09/14/17 09:00 10/14/17 08:59 09/15/17 09:40 20 MG Heparin Sodium (Porcine) (Heparin Sq 5000 Unit/0.5ml) 5,000 unit Q8 SQ 09/13/17 22:00 10/13/17 21:59 09/15/17 06:11 5,000 UNIT Oseltamivir Phosphate (Tamiflu Cap) 75 mg BID PO 09/13/17 21:00 09/18/17 20:59 3/16/18 09:42 75 MG Miscellaneous Information (Pharmacist Discharge Med Rec Consult) 1 ea UD PRN N/A 09/13/17 21:15 10/13/17 21:14 Gadobutrol (Gadavist) 9 mmol UD PRN IV 09/13/17 22:30 09/17/17 22:29 Atorvastatin Calcium (Lipitor Tab) 40 mg HS PO 09/14/17 21:00 10/14/17 20:59 09/14/17 20:55 40 MG Aspirin (Ecotrin Tab) 162 mg DAILY PO 09/15/17 09:00 10/14/17 08:59 09/15/17 09:41 162 MG Ioversol (Optiray 320) 111 ml UD PRN IV 09/14/17 17:00 09/18/17 16:59 Impression 71 year old male with CP/SOB and diplopia x 3 days- 10 mm focus of restricted diffusion identified in the left aspect of the miesha Plan 1. TTE - no ASD cardiology to arrange out patient ZIO for 2 weeks assess possible afib 2. MRI with 10 mm focus of restricted diffusion identified in the left aspect of the miesha 3. already on plavix 75 mg and increase aspirin to 162 mg daily 4. PT/OT speech for discharge needs 5. HTN, DL, DM need to be optimized LDL <70 6. vascular disease history no history of a fib- 8. will need to continue plavix 75 mg and aspirin 162 mg at this point if afib is discovered on outpatient cardiac monitoring cardiology to decided need for anticoagulation neurology follow up in 3-[address] Lynne Maher or Lynne Rod PAC, schedule I have seen and discussed above patient with Dr Lynne Maher, neurology Pt seen and examined. Mild complaints of diplopia. Exam no obvious disorder of extraocular motility, R miosis, mildly clumsy R hand, gait not frankly unsteady. CTA bl carotid stenosis 50-70%, diffuse atherosclerotic changes in R vert. Stroke could be thrombotic or embolic vessel to vessel. Pt is obligated to PLavix bc of stent, increase asa to 162 mg/d. Would follow-up carotid stenosis with carotid US in 6 months and then yearly if stable with referral to vascular if 70% or greater. Cardionet as outpt, continued risk factor mod. Pt should see us as an outpt. YASEMIN Maher MD
[2017-09-15 16:49] VITALS: BP 112/58; PULSE 69; TEMP 36.5; O2SAT 95
--- NOTE | 2017-09-15 19:41 | Progress Note ---
Internal Med Progress Note Date of Service: Sep 15, 2017. Provider Documentation: SUBJECTIVE: resting comfortably diplopia improving no nausea or chest pain no sob ambulating fine' eating ok speech clear OBJECTIVE: Vital Signs-as noted below Exam: General-alert and oriented. Not in distress Eyes no double vision ocular movements normal ENT-Normal hearing Neck-no neck masses Lungs-cta b/l no wheezing or crackles Heart-S1 and S2 heard regular rate and rhythm no murmurs Abdomen-Soft bowel sounds present mild diffuse tender no distension Extremities-no edema no erythema Neuro-alert and awake and oriented moves extremities Lab data as noted below. ASSESSMENT & PLAN: CP/ELEVATED TROPONIN hx of cad s/p stent mild elevation of troponin ekg unremarkable currently asymptomatic on aspirin, Plavix, Toprol xl and statin cardiology consulted and appreciate inputs COUGH/INFLUENZA B +influenza B PCR. on Tamiflu continue same HX CHRONIC SYSTOLIC HF stable on Lasix will monitor. HTN Stable on Lasix, metoprolol, enalapril will monitor. DIPLOPIA' Acute CVA Patient with onset of right eye diplopia when both eyes are open, MRI head acute cva in left miesha MRA neck unremarkable diplopia getting better on aspirin and Plavix and statin pt/ot and speech evaluation aspirin dose increased to 162mg by neurology CTA head and neck shows severe stenosis of right vertebral artery and moderate stenosis of carotids consulted vascular surgery DM II H A1c: 7.7 on 05/09 Holding oral meds hba1c 8.4 on iss will monitor. fairly controlled DYSLIPIDEMIA Lipid panel on 01/16: Total 99, LDL: 52, HDL: 32, triglycerides: 74. On statin WOUND LLE Per h and P:"Following with wound clinic Gwendolyn Rick. Reports wound is healing, denies or discharge. Hx wound culture was MSSA. Pt completed antibiotics one month ago. wound nurse consult" DVT Prophylaxis heparin SQ Disposition Monitor in tele Full Code as per admission To be determined Vital Signs: Date Time Temp Pulse Resp B/P (MAP) Pulse Ox O2 Delivery O2 Flow Rate FiO2 09/15/17 16:49 36.5 69 22 112/58 (76) 95 Room Air 09/15/17 16:00 Room Air 09/15/17 12:00 36.7 67 18 109/66 (80) 94 Room Air 09/15/17 12:00 Room Air 09/15/17 08:00 Room Air 09/15/17 07:20 36.4 73 20 130/62 (84) 93 Room Air 09/15/17 03:35 36.5 73 19 133/68 (89) 94 Room Air 09/15/17 03:05 Room Air 09/14/17 23:35 36.3 71 19 126/71 (89) 94 Room Air 09/14/17 23:30 Room Air 09/14/17 20:00 Room Air Lab Results: Results Past 24 Hours Test 09/14/17 20:00 09/15/17 05:54 09/15/17 06:26 09/15/17 11:17 Range/Units Bedside Glucose 121 136 166 70-99 mg/dl White Blood Count 4.93 4.8-10.8 K/uL Red Blood Count 4.44 4.7-6.1 M/uL Hemoglobin 13.7 14.0-18.0 g/dL Hematocrit 40.8 42-52 % Mean Corpuscular Volume 91.9 80-100 fL Mean Corpuscular Hemoglobin 30.9 25-34 pg Mean Corpuscular Hemoglobin Concent 33.6 32-36 g/dl Platelet Count 211 130-400 K/uL Mean Platelet Volume 9.2 7.4-10.4 fL Neutrophils (%) (Auto) 60.0 % Lymphocytes (%) (Auto) 27.2 % Monocytes (%) (Auto) 10.8 % Eosinophils (%) (Auto) 1.8 % Basophils (%) (Auto) 0.2 % Neutrophils # (Auto) 2.96 1.4-6.5 K/uL Lymphocytes # (Auto) 1.34 1.2-3.4 K/uL Monocytes # (Auto) 0.53 0.11-0.59 K/uL Eosinophils # (Auto) 0.09 0-0.5 K/uL Basophils # (Auto) 0.01 0-0.2 K/uL RDW Standard Deviation 46.6 36.4-46.3 fL RDW Coefficient of Variation 13.8 11.5-14.5 % Immature Granulocyte % (Auto) 0.0 % Immature Granulocyte # (Auto) 0.00 0.00-0.02 K/uL Test 09/15/17 16:24 Range/Units Bedside Glucose 124 70-99 mg/dl
[2017-09-15 20:26] VITALS: BP 107/59; PULSE 73; TEMP 36.5; O2SAT 92
[2017-09-15] MEDS: ATORVASTATIN 40 MG TAB PO SCH (21:17)
[2017-09-15 23:04] VITALS: BP 135/64; PULSE 63; TEMP 36.7; O2SAT 92
[2017-09-16 03:24] VITALS: BP 114/53; PULSE 63; TEMP 36.8; O2SAT 93
[2017-09-16] MEDS: HEPARIN SOD 5000 UNIT/0.5 ML CARP SQ SCH ×3 (05:35→21:35)
[2017-09-16 06:53] LABS: BASO % 0.5 %; BASO ABS # 0.02 K/uL (0-0.2); EOS % 3.6 %; EOS ABS # 0.14 K/uL (0-0.5); HEMATOCRIT 39.3 % (42-52); HEMOGLOBIN 13.4 g/dL (14.0-18.0); LYMPH % 32.5 %; LYMPH ABS # 1.28 K/uL (1.2-3.4); MEAN CELL VOLUME 91.6 fL (80-100); MEAN CORPUSCULAR HEMOGLOBIN 31.2 pg (25-34); MEAN CORPUSCULAR HGB CONC 34.1 g/dl (32-36); MONO % 13.2 %; MONO ABS # 0.52 K/uL (0.11-0.59); NEUT % 50.2 %; NEUT ABS # 1.98 K/uL (1.4-6.5); PLATELET COUNT 208 K/uL (130-400); RED CELL DISTRIBUTION WIDTH CV 14.1 % (11.5-14.5); RED CELL DISTRIBUTION WIDTH SD 47.7 fL (36.4-46.3); WHITE BLOOD COUNT 3.94 K/uL (4.8-10.8)
[2017-09-16 07:59] VITALS: BP 131/71; PULSE 86; TEMP 36.9; O2SAT 95
[2017-09-16] MEDS: MULTIVITAMIN TAB PO SCH (08:42)
[2017-09-16] MEDS: METOPROLOL SUCC 50MG EXT REL TAB PO SCH (08:42)
[2017-09-16] MEDS: CLOPIDOGREL BISULFATE 75 MG TAB PO SCH (08:42)
[2017-09-16] MEDS: OSELTAMIVIR PHOSPHATE 75 MG CAP PO SCH ×2 (08:43→20:24)
[2017-09-16] MEDS: FUROSEMIDE 40 MG TAB PO SCH (08:43)
[2017-09-16] MEDS: TAMSULOSIN HCL 0.4 MG CAP PO SCH (08:43)
[2017-09-16] MEDS: ENALAPRIL MALEATE 10 MG TAB PO SCH (08:44)
[2017-09-16] MEDS: ASPIRIN 81 MG ECTAB PO SCH (08:44)
[2017-09-16] MEDS: INSULIN ASPART 100 UNITS/ML 3 ML PEN SC SCH ×4 (08:46→20:22)
--- NOTE | 2017-09-16 10:11 | PROGRESS NOTE ---
DATE: 09/16/2017 SUBJECTIVE: I am seeing Mr. Anand in followup of a left pontine infarction. There are atherosclerotic changes in the right vertebra. The left vertebra and basilar are normal. He has not had any new neurologic symptoms. He has some mild disturbance of vision that he would describe not as diplopia. OBJECTIVE: On exam, he is awake and alert. There is normal speech and language. Affect appropriate. There is mild right miosis and motility is normal. Normal facial symmetry and symmetric strength. Mild clumsiness and [id number] on the right. [id number] is normal bilaterally. IMPRESSION AND PLAN: 1. Left pontine infarction. Continue risk factor modification, antiplatelet therapy. 2. Right internal carotid stenosis 50%-75%. The patient should have a followup carotid ultrasound in 6 months and then yearly thereafter with referral to vascular surgery if greater than 70%. Continue risk factor modification as appropriate. The patient should see us in followup post discharge. ABISAI
--- NOTE | 2017-09-16 11:01 | Cardiology Follow-Up ---
Subjective General Date of Service: Sep 16, 2017. Pt evaluation today including: conversation w/ patient, physical exam, chart review, lab review, review of studies, review of inpatient medication list History of Present Illness The patient is a 71 year old male seen in follow-up. He remains in sinus rhythm on telemetry. Denies visual disturbance today. No focal weakness or slurred speech. Offers no complaints. Allergies Coded Allergies: No Known Allergies (Verified , 09/13/17) Social History Smoking Status: Never Smoker Hx Tobacco Use In Past Year?: No Hx Alcohol Use - Type And Amou: Yes (Socially ) Hx Substance Use - Type And Am: No Problem List Medical Problems: (1) Cardiac ischemia Status: Acute (2) CHF (congestive heart failure) Status: Acute (3) Diplopia Status: Acute (4) Elevated troponin Status: Acute (5) Elevated troponin Status: Acute (6) Influenza B Status: Acute Review of Systems Respiratory: No cough, No wheezing, No shortness of breath, No dyspnea on exertion, No dyspnea at rest, No hemoptysis Cardiac: No chest pain, No orthopnea, No PND, No edema, No claudication, No palpitations Physical Exam Vital Signs Last Vital Signs Documentation Date Time Temp Pulse Resp B/P (MAP) Pulse Ox O2 Delivery O2 Flow Rate FiO2 09/16/17 08:00 Room Air 09/16/17 07:59 36.9 86 18 131/71 (91) 95 Physical Exam Constitutional: General Apperance: heathly-appearing Level of Distress: NAD Head: normocephalic, atraumatic Lungs: Auscultation: breath sounds normal, no wheezing, no rales/crackles, no rhonchi Cardiovascular: Heart Auscultation: RRR, normal S1, normal S2, no murmurs Peripheral Pulses: Bruits: none appreciated Carotid Pulse: normal on the left, normal on the right Radial Pulse: normal on the right Extremities: no cyanosis, no edema, ulcers (right pretibial ) Neurologic: Gait & Station: pertinent finding Assessment and Plan Assessment and Plan FINAL IMPRESSION: 1. A 71-year-old male admitted with musculoskeletal right-sided chest discomfort related to cough secondary to influenza B infection. 2. 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 3. Chronic coronary artery disease with drug-eluting stent implantation x2 to left anterior descending artery, December 2016. 4. Mildly elevated troponin secondary to acute influenza infection, demand ischemia. Not indicative of plaque rupture event. 5. Ischemic cardiomyopathy with compensated heart failure. -Low normal systolic function 6. Hypertension, controlled. 7. Dyslipidemia. PLAN AND RECOMMENDATIONS: Continue medical management with aspirin, Plavix, metoprolol, atorvastatin, and enalapril. Continue to monitor telemetry. Will arrange for 14 day ZIO monitor at time of discharge. Repeat carotid duplex in 6 months. Appreciate neurology input. Will continue to follow during hospitalization. Laboratory Results Last 24 Hours Test 09/15/17 11:17 09/15/17 16:24 09/15/17 20:50 09/16/17 05:51 Bedside Glucose 166 mg/dl 124 mg/dl 106 mg/dl White Blood Count 3.94 K/uL Red Blood Count 4.29 M/uL Hemoglobin 13.4 g/dL Hematocrit 39.3 % Mean Corpuscular Volume 91.6 fL Mean Corpuscular Hemoglobin 31.2 pg Mean Corpuscular Hemoglobin Concent 34.1 g/dl Platelet Count 208 K/uL Mean Platelet Volume 9.0 fL Neutrophils (%) (Auto) 50.2 % Lymphocytes (%) (Auto) 32.5 % Monocytes (%) (Auto) 13.2 % Eosinophils (%) (Auto) 3.6 % Basophils (%) (Auto) 0.5 % Neutrophils # (Auto) 1.98 K/uL Lymphocytes # (Auto) 1.28 K/uL Monocytes # (Auto) 0.52 K/uL Eosinophils # (Auto) 0.14 K/uL Basophils # (Auto) 0.02 K/uL RDW Standard Deviation 47.7 fL RDW Coefficient of Variation 14.1 % Immature Granulocyte % (Auto) 0.0 % Immature Granulocyte # (Auto) 0.00 K/uL Test 09/16/17 06:40 Bedside Glucose 130 mg/dl
[2017-09-16 11:09] VITALS: BP 123/69; PULSE 74; TEMP 36.3; O2SAT 95
[2017-09-16 15:29] VITALS: BP 119/70; PULSE 66; TEMP 36.3; O2SAT 95
--- NOTE | 2017-09-16 17:11 | Progress Note ---
Internal Med Progress Note Date of Service: Sep 16, 2017. Provider Documentation: SUBJECTIVE: resting comfortably diplopia much improved swallowing fine speech ok ambulating fine 'wants to stay one more day OBJECTIVE: Vital Signs-as noted below Exam: General-alert and oriented. Not in distress Eyes no double vision ocular movements normal ENT-Normal hearing Neck-no neck masses Lungs-cta b/l no wheezing or crackles Heart-S1 and S2 heard regular rate and rhythm no murmurs Abdomen-Soft bowel sounds present mild diffuse tender no distension Extremities-no edema no erythema Neuro-alert and awake and oriented moves extremities Lab data as noted below. ASSESSMENT & PLAN: CP/ELEVATED TROPONIN hx of cad s/p stent mild elevation of troponin ekg unremarkable currently asymptomatic on aspirin, Plavix, Toprol xl and statin cardiology consulted and appreciate inputs plan for holter as out patient as per cardiology COUGH/INFLUENZA B +influenza B PCR. on Tamiflu#3 continue same HX CHRONIC SYSTOLIC HF stable on Lasix will monitor. HTN Stable on Lasix, metoprolol, enalapril will monitor. DIPLOPIA' Acute CVA Patient with onset of right eye diplopia when both eyes are open, MRI head acute cva in left miesha MRA neck unremarkable diplopia getting better on aspirin and Plavix and statin pt/ot and speech evaluation aspirin dose increased to 162mg by neurology CTA head and neck shows severe stenosis of right vertebral artery and moderate stenosis of carotids consulted vascular surgery needs vascular followup DM II H A1c: 7.7 on 05/09 Holding oral meds hba1c 8.4 on iss will monitor. fairly controlled DYSLIPIDEMIA Lipid panel on 01/16: Total 99, LDL: 52, HDL: 32, triglycerides: 74. On statin WOUND LLE Per h and P:"Following with wound clinic Gwendolyn Rick. Reports wound is healing, denies or discharge. Hx wound culture was MSSA. Pt completed antibiotics one month ago. wound nurse consult" DVT Prophylaxis heparin SQ Disposition Monitor in tele Full Code as per admission possible d/c in am Vital Signs: Date Time Temp Pulse Resp B/P (MAP) Pulse Ox O2 Delivery O2 Flow Rate FiO2 09/16/17 16:00 Room Air 09/16/17 15:29 36.3 66 18 119/70 (86) 95 Room Air 09/16/17 12:00 Room Air 09/16/17 11:09 36.3 74 16 123/69 (87) 95 Room Air 09/16/17 08:00 Room Air 09/16/17 07:59 36.9 86 18 131/71 (91) 95 09/16/17 04:00 Room Air 09/16/17 03:24 36.8 63 16 114/53 (73) 93 Room Air 09/16/17 00:01 Room Air 09/15/17 23:04 36.7 63 16 135/64 (87) 92 Room Air 09/15/17 20:26 36.5 73 18 107/59 (75) 92 Room Air 09/15/17 20:00 Room Air Lab Results: Results Past 24 Hours Test 09/15/17 20:50 09/16/17 05:51 09/16/17 06:40 09/16/17 11:08 Range/Units Bedside Glucose 106 130 166 70-99 mg/dl White Blood Count 3.94 4.8-10.8 K/uL Red Blood Count 4.29 4.7-6.1 M/uL Hemoglobin 13.4 14.0-18.0 g/dL Hematocrit 39.3 42-52 % Mean Corpuscular Volume 91.6 80-100 fL Mean Corpuscular Hemoglobin 31.2 25-34 pg Mean Corpuscular Hemoglobin Concent 34.1 32-36 g/dl Platelet Count 208 130-400 K/uL Mean Platelet Volume 9.0 7.4-10.4 fL Neutrophils (%) (Auto) 50.2 % Lymphocytes (%) (Auto) 32.5 % Monocytes (%) (Auto) 13.2 % Eosinophils (%) (Auto) 3.6 % Basophils (%) (Auto) 0.5 % Neutrophils # (Auto) 1.98 1.4-6.5 K/uL Lymphocytes # (Auto) 1.28 1.2-3.4 K/uL Monocytes # (Auto) 0.52 0.11-0.59 K/uL Eosinophils # (Auto) 0.14 0-0.5 K/uL Basophils # (Auto) 0.02 0-0.2 K/uL RDW Standard Deviation 47.7 36.4-46.3 fL RDW Coefficient of Variation 14.1 11.5-14.5 % Immature Granulocyte % (Auto) 0.0 % Immature Granulocyte # (Auto) 0.00 0.00-0.02 K/uL Test 09/16/17 16:18 Range/Units Bedside Glucose 151 70-99 mg/dl
[2017-09-16 19:23] VITALS: BP 100/61; PULSE 68; TEMP 36.3; O2SAT 91
[2017-09-16] MEDS: ATORVASTATIN 40 MG TAB PO SCH (20:23)
[2017-09-16 23:00] VITALS: BP 117/66; PULSE 64; TEMP 36.6; O2SAT 93
[2017-09-17 03:33] VITALS: BP 132/75; PULSE 68; TEMP 36.7; O2SAT 94
[2017-09-17] MEDS: HEPARIN SOD 5000 UNIT/0.5 ML CARP SQ SCH ×2 (05:29→11:35)
[2017-09-17 07:23] VITALS: BP 133/72; PULSE 69; TEMP 36.6; O2SAT 95
[2017-09-17] MEDS: FUROSEMIDE 40 MG TAB PO SCH (08:19)
[2017-09-17] MEDS: TAMSULOSIN HCL 0.4 MG CAP PO SCH (08:20)
[2017-09-17] MEDS: CLOPIDOGREL BISULFATE 75 MG TAB PO SCH (08:20)
[2017-09-17] MEDS: METOPROLOL SUCC 50MG EXT REL TAB PO SCH (08:20)
[2017-09-17] MEDS: ASPIRIN 81 MG ECTAB PO SCH (08:20)
[2017-09-17] MEDS: MULTIVITAMIN TAB PO SCH (08:20)
[2017-09-17] MEDS: OSELTAMIVIR PHOSPHATE 75 MG CAP PO SCH (08:20)
[2017-09-17] MEDS: ENALAPRIL MALEATE 10 MG TAB PO SCH (08:21)
[2017-09-17] MEDS: INSULIN ASPART 100 UNITS/ML 3 ML PEN SC SCH ×2 (08:27→11:34)
--- NOTE | 2017-09-17 09:15 | Surgery Consultation ---
Consultation Date of Service Sep 17, 2017. History of Present Illness The patient is a 71 year old male with PMH CAD a stemi in 12/2016, ischemic cardiomyopathy, chronic systolic heart failure, hypertension, diabetes, BPH presented to ER with complaint of cough and right sided chest pain with coughing. He also noticed diplopia of right eye which is now resolved of his right eye. This had never occurred prior. He denies previous miller. He denies claudication or rest pain. His workup showed significant plaque of the ICA origins bilaterally with 70% stenosis both sides. There is also diffuse changes in the vertebral artery Vitals Vital Signs Past 12 Hours Date Time Temp Pulse Resp B/P (MAP) Pulse Ox O2 Delivery O2 Flow Rate FiO2 09/17/17 08:00 Room Air 09/17/17 07:23 36.6 69 20 133/72 (92) 95 Room Air 09/17/17 04:00 Room Air 09/17/17 03:33 36.7 68 18 132/75 (94) 94 Room Air 09/17/17 00:01 Room Air 09/16/17 23:00 36.6 64 16 117/66 (83) 93 Room Air Allergies Coded Allergies: No Known Allergies (Verified , 09/13/17) Home Medications Scheduled Aspirin (Aspirin Ec), 81 MG PO DAILY Atorvastatin (Lipitor), 1 TAB PO DAILY Clopidogrel Bisulfate (Plavix), 1 TAB PO DAILY Enalapril Maleate (Enalapril Maleate), 1 TAB PO DAILY Furosemide (Lasix), 1.5 TAB PO DAILY Glipizide (Glipizide), 1 TAB PO DAILY Metformin Hcl (Glucophage), 1,000 MG PO BID Metoprolol Succinate (Toprol Xl), 50 MG PO DAILY Multivitamin (Multivitamin), 1 TAB PO QAM Nitroglycerin (Nitrostat), 0.4 MG UT PRN Sildenafil Citrate (Viagra), 100 MG PO PRN Tamsulosin Hcl (Flomax), 0.4 MG PO QAM Scheduled PRN Sennosides-Docusate Sodium (Stool Softener), 2 TAB PO QPM PRN for Constipation Problem List Medical Problems: (1) CAD (coronary artery disease) (2) Chest pain (3) Diabetes mellitus, type II (4) Dyslipidemia (5) Hypertension (6) Lumbar stenosis with neurogenic claudication (7) Non-ST elevation SC (NSTEMI) (8) Systolic heart failure, chronic Surgical Problems: (1) Status post appendectomy (2) Status post lumbar surgery (3) Status post total knee replacement Surgical / Medical History Hx Cardiac Surgery: Yes (CARDIAC STENTS) Hx Abdominal Surgery: Yes (APPENDECTOMY) Hx Cancer Surgery: No Hx Thoracic Surgery: No Hx Orthopedic: Yes (LUMBAR FUSION X 2,L TKA-2012) Hx Urinary Tract Surgery: No Past Medical/Surgical History: CHF, Diabetes, Heart Disease, High Cholesterol, Hypertension, SC Family History Coronary artery disease MOTHER Diabetes mellitus FATHER Social History Smoking Status: Never Smoker Hx Tobacco Use In Past Year?: No Hx Alcohol Use - Type & Amnt: Yes (Socially ) Hx Substance Use -Type & Amnt: No Review of Systems Constitutional: No chills, No diaphoresis, No fever, No malaise, No weakness, No weight gain, No weight loss, No sweats, No fatigue, No problem reported Respiratory: + cough, No cyanosis, No MUÑOZ, No hemoptysis, No orthopnea, No PND , No short of breath, No sputum production, No stridor, No wheezing, No dyspnea , No problem reported Cardiovascular: No chest pain, No chest tightness, No chest pressure, No palpitations, No syncope, No diaphoresis, No edema, No intermittent claudication , No orthopnea, No cyanosis, No mumur, No lightheadedness, No paroxysmal nocturnal dyspnea, No problem reported Gastrointestinal: No abdominal pain, No constipation, No diarrhea, No nausea, No vomiting, No anorexia, No appetite changes, No belching, No flatulence, No food intolerance, No hematemesis, No hemorrhoids, No hematochezia, No stool changes, No heartburn, No indigestion, No dysphagia, No rectal bleeding, No problem reported Genitourinary - Male: No impotence, No penile discharge, No penile itching, No rash, No testicular pain, No testicular swelling, No hematuria, No difficulty urinating, No problem reported Musculoskeletal: No back pain, No gout, No joint pain, No joint swelling, No muscle pain, No muscle stiffness, No muscle weakness, No neck pain, No problem reported Neurologic: + problem reported (double vision which is now improved), No dizziness, No weakness, No headache, No lethargy, No numbness, No paresthesia, No pre-existing deficit, No seizures, No tics, No tingling, No tremors, No vertigo, No memory loss, No LOC Psychiatric: No anxiety, No alcohol abuse, No auditory hallucinations, No depression, No drug abuse, No homicidal ideation, No mood changes, No suicidal ideation, No visual hallucinations, No problem reported Physical Exam Constitutional: General Apperance: heathly-appearing Level of Distress: NAD Ambulation: ambulating normally Psychiatric: Mental Status: active & alert, normal mood, normal affect Orientation: oriented except where noted, to time, to place, to person Memory: recent memory normal, remote memory normal Eyes: Pupils: PERRLA EOM: EOMI Neck: supple Lungs: Auscultation: breath sounds normal, no wheezing, no rales/crackles, no rhonchi Cardiovascular: Heart Auscultation: RRR Peripheral Pulses: Superficial Temporal Artery: normal on the left, normal on the right Carotid Pulse: normal on the left, normal on the right Radial Pulse: normal on the left, normal on the right Femoral Pulse: normal on the left, normal on the right Abdomen: Inspection & Palpation: soft Musculoskeletal: normal, normal strength (5/5 throughout), normal tone Extremities: Upper Right: no cyanosis, no edema, no varicosities, no palpable cord, no clubbing, no ulcers, no mottling Upper Left: no cyanosis, no edema, no palpable cord, no clubbing, no ulcers , no mottling Lower Right: no cyanosis, no edema, no varicosities, no palpable cord, no clubbing, no mottling, ulcers (small ulcer ant lower leg with no evidence of infection, healing well) Lower Left: no cyanosis, no edema, no varicosities, no palpable cord, no clubbing, no ulcers, no mottling Neurologic: Cranial Nerves: grossly intact Sensation: grossly intact Assessment and Plan Imp: Bilateral carotid disease Plan: Agree with treating with ASA and plavix. No intervention planned at this time. Will follow up in 6 months with a repeat USN at that time. Thank you very much for letting me participate in the care of this patient.
--- NOTE | 2017-09-17 11:48 | Cardiology Follow-Up ---
Subjective General Date of Service: Sep 17, 2017. Pt evaluation today including: conversation w/ patient, physical exam, chart review, lab review, review of studies, review of inpatient medication list History of Present Illness The patient is a 71 year old male seen in follow-up. No dysrhythmias on telemetry. Denies chest discomfort or unusual shortness of breath Diplopia has resolved. Offers no complaints at this time. Requesting discharge. Allergies Coded Allergies: No Known Allergies (Verified , 09/13/17) Social History Smoking Status: Never Smoker Hx Tobacco Use In Past Year?: No Hx Alcohol Use - Type And Amou: Yes (Socially ) Hx Substance Use - Type And Am: No Problem List Medical Problems: (1) Cardiac ischemia Status: Acute (2) CHF (congestive heart failure) Status: Acute (3) Diplopia Status: Acute (4) Elevated troponin Status: Acute (5) Elevated troponin Status: Acute (6) Influenza B Status: Acute Review of Systems Respiratory: No cough, No wheezing, No shortness of breath, No dyspnea on exertion, No dyspnea at rest, No hemoptysis Cardiac: No chest pain, No orthopnea, No PND, No edema, No palpitations Physical Exam Vital Signs Last Vital Signs Documentation Date Time Temp Pulse Resp B/P (MAP) Pulse Ox O2 Delivery O2 Flow Rate FiO2 09/17/17 08:00 Room Air 09/17/17 07:23 36.6 69 20 133/72 (92) 95 Physical Exam Constitutional: General Apperance: heathly-appearing Level of Distress: NAD Ambulation: ambulating normally Psychiatric: Mental Status: active & alert, normal mood, normal affect Orientation: oriented except where noted, to time, to place, to person Memory: recent memory normal, remote memory normal Head: normocephalic, atraumatic Eyes: Pupils: PERRLA EOM: EOMI Neck: supple Lungs: Auscultation: breath sounds normal, no wheezing, no rales/crackles, no rhonchi Cardiovascular: Heart Auscultation: RRR, normal S1, normal S2, no murmurs Peripheral Pulses: Bruits: none appreciated Carotid Pulse: normal on the left, normal on the right Radial Pulse: normal on the left, normal on the right Femoral Pulse: normal on the left, normal on the right Abdomen: Inspection & Palpation: soft Musculoskeletal: normal, normal strength (5/5 throughout), normal tone Extremities: no cyanosis, no edema, ulcers (right pretibial ) Neurologic: Gait & Station: pertinent finding Cranial Nerves: grossly intact Sensation: grossly intact Assessment and Plan Assessment and Plan FINAL IMPRESSION: 1. A 71-year-old male admitted with musculoskeletal right-sided chest discomfort related to cough secondary to influenza B infection. 2. 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 3. Chronic coronary artery disease with drug-eluting stent implantation x2 to left anterior descending artery, December 2016. 4. Mildly elevated troponin secondary to acute influenza infection, demand ischemia. Not indicative of plaque rupture event. 5. Ischemic cardiomyopathy with compensated heart failure. -Low normal systolic function per repeat echo 6. Hypertension, controlled. 7. Dyslipidemia. PLAN AND RECOMMENDATIONS: Continue medical management with aspirin, Plavix, metoprolol, atorvastatin, and enalapril. Continue to monitor telemetry. Will arrange for 14 day ZIO monitor at time of discharge. Repeat carotid duplex in 6 months. Appreciate neurology input. Will sign off today. Please call with questions. Laboratory Results Last 24 Hours Test 09/16/17 16:18 09/16/17 20:07 09/17/17 06:39 09/17/17 11:27 Bedside Glucose 151 mg/dl 124 mg/dl 132 mg/dl 152 mg/dl
[2017-09-17 12:17] VITALS: BP 133/72; PULSE 69; TEMP 36.6; O2SAT 95
[2017-09-17] MEDS ORDERED: ASPEC81 PO (12:34)
[2017-09-17] MEDS ORDERED: TMF75 PO (12:34)
--- NOTE | 2017-09-17 12:41 | Discharge Instructions ---
Discharge Instructions Date of Service Sep 17, 2017. Admission Reason for Admission: Diplopia, Elevated Troponin, Influenza B Discharge Discharge Diagnosis / Problem: acute cva, diplopia, influenza B Discharge Goals Goal(s): Decrease discomfort, Improve function Activity Recommendations Activity Limitations: resume your previous activity . Instructions / Follow-Up Instructions / Follow-Up FOLLOWUP WITH FAMILY DOCTOR Zainab Vega, C.R.N.P. on september 19 at 12: 55pm. FOLLOWUP WITH NEUROLOGY DR.Kathleen Perri Maher IN 2-3 WEEKS. FOLLOWUP WITH VASCULAR SURGERY IN 6 MONTHS WITH REPEAT CAROTID ULTRASOUND. FOLLOWUP WITH CARDIOLOGY WITH 14 day ZIO monitor. CARDIOLOGY GOING TO ARRANGE FOR MONITOR. CLOSE MONITOR FOR DIABETES WITH FAMILY DOCTOR. HBA1C 8.4 Risk Factors for Stroke: You can reduce your chances of stroke by working with your medical provider to adopt a healthy lifestyle. Some specific ways to lower your chance of stroke are: * If you are a smoker, now is the time to stop smoking cigarettes * If you are diabetic, improve the control of your blood sugars * Avoid excessive amounts of alcohol * Control high blood pressure * Lose weight if you are overweight * Be sure to lead an active lifestyle * Eat a healthy diet low in salt, cholesterol and fat You should know about other risk factors for stroke that you are unable to control. These include: * Age 55 years or older * Male gender * Certain racial groups: , or / * Family History of Stroke, Mini stroke or Heart Attack * Sickle Cell Disease Follow Up: It is important for you to keep your follow up appointments with your medical provider. Current Hospital Diet Patient's current hospital diet: Diabetes Type 2 Diet, AHA Diet (Heart Healthy) Discharge Diet Recommended Diet: AHA Diet (Heart Healthy), Diabetes Type 2 Diet Pending Studies Studies pending at discharge: no Laboratory Results Hemoglobin A1c Test 09/14/17 03:47 Range/Units Estimated Average Glucose 194 mg/dl Hemoglobin A1c 8.4 H 4.5-5.6 % Lipid Panel Test 09/14/17 03:47 Range/Units Triglycerides Level 143 0-150 mg/dl Cholesterol Level 95 0-200 mg/dl HDL Cholesterol 30 mg/dl Cholesterol/HDL Ratio 3.2 LDL Cholesterol, Calculated 36 mg/dl Medical Emergencies . Who to Call and When: Medical Emergencies: Call 911 immediately if you experience any of the following warning signs and symptoms of Stroke: * Sudden numbness or weakness of the face, arm or leg, especially on one side of the body * Sudden confusion, trouble speaking or understanding * Sudden trouble seeing in one or both eyes * Sudden trouble walking, dizziness, loss of balance or coordination * Sudden severe headache with no cause Do not delay calling 911 if you experience any warning signs or symptoms of a stroke. Delay in seeking medical attention may affect what treatments can be given to you. . Non-Emergent Contact Non-Emergency issues call your: Primary Care Provider . . "Provider Documentation" section prepared by Buster Thomason. . Stroke Core Measures Reason no t-PA for Stroke: Treatment not indicated Reason no antithrom by day 2: Treatment provided - N/A Reason no antithrom at D/C: Treatment provided - N/A Reason no statin at D/C: Treatment provided - N/A Reason no anticoag w/a fib: Treatment not indicated
--- NOTE | 2017-09-17 19:02 | Progress Note ---
Internal Med Progress Note Date of Service: Sep 17, 2017. Provider Documentation: SUBJECTIVE: resting comfortably diplopia almost resolved no pain ambulating fine ok for discharge OBJECTIVE: Vital Signs-as noted below Exam: General-alert and oriented. Not in distress Eyes no double vision ocular movements normal ENT-Normal hearing Neck-no neck masses Lungs-cta b/l no wheezing or crackles Heart-S1 and S2 heard regular rate and rhythm no murmurs Abdomen-Soft bowel sounds present non tender no distension Extremities-no edema no erythema Neuro-alert and awake and oriented moves extremities Lab data as noted below. ASSESSMENT & PLAN: CP/ELEVATED TROPONIN hx of cad s/p stent mild elevation of troponin ekg unremarkable currently asymptomatic on aspirin, Plavix, Toprol xl and statin cardiology consulted and appreciate inputs plan for holter as out patient as per cardiology f/u wit cardiology COUGH/INFLUENZA B +influenza B PCR. on Tamiflu#4 complete 5 day course HX CHRONIC SYSTOLIC HF stable on Lasix will monitor. HTN Stable on Lasix, metoprolol, enalapril will monitor. DIPLOPIA' Acute CVA Patient with onset of right eye diplopia when both eyes are open, MRI head acute cva in left miesha MRA neck unremarkable diplopia getting better on aspirin and Plavix and statin pt/ot and speech evaluation aspirin dose increased to 162mg by neurology CTA head and neck shows severe stenosis of right vertebral artery and moderate stenosis of carotids consulted vascular surgery -to followup in 6 months DM II H A1c: 7.7 on 05/09 Holding oral meds hba1c 8.4 on iss d/c on home meds close f/u with pcp DYSLIPIDEMIA Lipid panel on 01/16: Total 99, LDL: 52, HDL: 32, triglycerides: 74. On statin WOUND LLE Per h and P:"Following with wound clinic Gwendolyn Rick. Reports wound is healing, denies or discharge. Hx wound culture was MSSA. Pt completed antibiotics one month ago. wound nurse consult" discharged home Vital Signs: Date Time Temp Pulse Resp B/P (MAP) Pulse Ox O2 Delivery O2 Flow Rate FiO2 09/17/17 12:17 36.6 69 20 95 Room Air 09/17/17 12:00 Room Air 09/17/17 12:00 Room Air 09/17/17 08:00 Room Air 09/17/17 07:23 36.6 69 20 133/72 (92) 95 Room Air 09/17/17 04:00 Room Air 09/17/17 03:33 36.7 68 18 132/75 (94) 94 Room Air 09/17/17 00:01 Room Air 09/16/17 23:00 36.6 64 16 117/66 (83) 93 Room Air 09/16/17 20:00 Room Air 09/16/17 19:23 36.3 68 16 100/61 (74) 91 Room Air Lab Results: Results Past 24 Hours Test 09/16/17 20:07 09/17/17 06:39 09/17/17 11:27 Range/Units Bedside Glucose 124 132 152 70-99 mg/dl
--- NOTE | 2017-09-17 19:19 | Discharge Summary ---
Discharge Summary Date of Service Sep 17, 2017. Discharge Summary Admission Date: Sep 13, 2017 at 18:44 Discharge Date: Sep 17, 2017 Discharge Disposition: Home Principal Diagnosis: ACUTE CVA DIPLOPIA INFLUENZA B Secondary Diagnoses/Problems: 1) CAD (coronary artery disease) Permanent Comment: 12/2016 - [facility] [place] - cardiac cath - 2 APRIL LAD Status: Chronic (2) Diabetes mellitus, type II Status: Chronic (3) Dyslipidemia Status: Chronic (4) Hypertension Status: Chronic (5) Lumbar stenosis with neurogenic claudication Status: Chronic (6) Non-ST elevation MT (NSTEMI) Status: Resolved (7) Systolic heart failure, chronic Status: Chronic Procedures: CXR: No significant change compared to the prior study. No acute process. Stable cardiomegaly. CT HEAD: 1. There is no hemorrhage, mass effect, or evidence of acute territorial ischemia by CT criteria. 2. Paranasal sinus disease as above. NECK MRA: 1. There is approximately 50% stenosis at the origin of the right internal carotid artery. 2. The carotid arteries are otherwise widely patent. 3. Question stenosis at the origin of both vertebral arteries. BRAIN MRI: 1. There is an acute to subacute lacunar infarct identified in the left miesha. 2. No additional foci of acute ischemia are identified. 3. There is no hemorrhage, mass effect, or enhancing mass lesion seen. 4. Paranasal sinus disease as above. CTA HEAD.NECK: 1. There is no hemorrhage, mass effect, or evidence of acute territorial ischemia by CT criteria. 2. There is a focus of low-attenuation in the left miesha consistent with the patient's known evolving subacute lacunar infarct. 3. There is high-grade stenosis of the intracranial portion of the right vertebral artery at the skull base. 4. The remaining intracranial vessels are widely patent. 5. There is high-grade stenosis with near complete occlusion at the origin of the right vertebral artery. 6. There is moderate stenosis at the origin of the left vertebral artery. 7. There is advanced atherosclerotic plaque with 50-75% stenosis at the origin of the right internal carotid artery. The remainder of the right internal carotid artery is widely patent. 8. Atherosclerotic plaque causes less than 50% luminal narrowing at the origin of the left internal carotid artery. 9. Paranasal sinus disease as above. ECHO: There is moderate concentric left ventricular hypertrophy. * There is a moderate sized apical, anteroseptal, and anterior wall motion abnormality with hypokinesis of the segments. * Left ventricular systolic function is low normal. * Left ventricular ejection Fraction = 50-55%. * The left atrium is mildly dilated. * Aortic valve sclerosis mild, without significant aortic valvular stenosis. * The aortic root diameter is normal. * The proximal ascending aorta is mildly dilated with measurement of 4 cm. * The interatrial septum is intact with no evidence for an atrial septal defect as demonstrated with the administration of agitated saline contrast. Consultations: CARDIOLOGY NEUROLOGY VASCULAR SURGERY Medication Reconciliation New Medications: Aspirin (Aspirin EC Low Dose) 81 Mg Ectab 162 MG PO DAILY for 30 Days, 2 Refills Oseltamivir Phosphate (Tamiflu) 75 Mg Cap 75 MG PO BID for 1 Day, #2 CAP Continued Medications: Atorvastatin (Lipitor) 40 Mg Tab 1 TAB PO DAILY for 30 Days, #30 TAB 5 Refills Clopidogrel Bisulfate (Plavix) 75 Mg Tab 1 TAB PO DAILY for 90 Days, #90 TAB 1 Refill Enalapril Maleate (Enalapril Maleate) 20 Mg Tab 1 TAB PO DAILY for 90 Days, #90 TAB 1 Refill Furosemide (Lasix) 40 Mg Tab 1.5 TAB PO DAILY, TAB Glipizide (Glipizide) 5 Mg Tab 1 TAB PO DAILY Metformin Hcl (Glucophage) 1,000 Mg Tab 1000 MG PO BID, TAB Metoprolol Succinate (Toprol Xl) 50 Mg Tabcr 50 MG PO DAILY, #30 TAB Multivitamin (Multivitamin) Tab 1 TAB PO QAM, 0 Refills Nitroglycerin (Nitrostat) 0.4 Mg Tab 0.4 MG UT PRN, BTL Sennosides-Docusate Sodium (Stool Softener) 1 Tab Tab 2 TAB PO QPM PRN for Constipation Tamsulosin Hcl (Flomax) 0.4 Mg Cap 0.4 MG PO QAM, CAP Discontinued Medications: Aspirin (Aspirin Ec) 81 Mg Tab 81 MG PO DAILY Sildenafil Citrate (Viagra) 100 Mg Tab 100 MG PO PRN, TAB Admission Information HPI (per Admitting provider): Pt is 71 y/o M with PMH CAD S/P APRIL LAD in 12/2016, ischemic cardiomyopathy, chronic systolic heart failure, hypertension, dyslipidemia, diabetes mellitus 2 , BPH presented to ER with complaint of cough and chest pain. Patient states 3 days ago started with cough sometimes productive of clear sputum. Also complaining of myalgias past 3 days. Denies known sick contacts. Patient reports this morning started with right-sided chest pain with coughing only. Has not used any nitro. Yesterday noticed diplopia of right eye which is continued into today. Patient reports only notices symptoms from right eye with both eyes open. States when he closes left eye no diplopia from right eye , and one closes right eye no diplopia from left eye. Denies any head injury or recent falls. Hx sinusitis recently. Denies shortness of breath, denies any noticed lower extremity edema. Reports following with wound clinic Gwendolyn Rick, reports is healing. Was on antibiotics several weeks ago for MSSA from wound culture. Denies discharge or surrounding erythema. Denies known fever /chills, diaphoresis, N/V/D/C, SMITH, dizziness, syncope, vision loss, neck pain, SOB, orthopnea, palpitations, sore throat, choking, otalgia, abdominal pain, paresthesias, weakness, extremity edema, rashes, urinary symptoms. Patient with history of admission 10/2016 for chest pain, and STEMI, volume overload. EF at that time 35-40%. History of abnormal stress echo December 2016, EF 40-45%. History of cath December 2016 at [facility] [place] - 2 APRIL to LAD. History of echo 2017 EF: 50-54%, subtle hypokinesis apical lateral wall and septum. In ER patient afebrile, pulse 80, respirations 16, BP: 139/70, 98% on RA. Positive influenza B. Troponin 0.2 (0.3 2016). Chest x-ray no acute findings. Head CT paranasal sinus disease. EKG: NSR, no ST elevations. Physical Exam (per Admitting): General Appearance: WD/WN, no apparent distress Head: normocephalic, atraumatic Eyes: normal inspection, EOMI, sclerae normal, + pertinent finding (left pupil 3mm, right pupil 2mm, reactive to light) ENT: hearing grossly normal, pharynx normal, + pertinent finding (mucous membranes moist) Neck: supple, no JVD, trachea midline Respiratory/Chest: chest non-tender, lungs clear, normal breath sounds, no respiratory distress Cardiovascular: regular rate, rhythm, no murmur, normal peripheral pulses Abdomen/GI: normal bowel sounds, non tender, soft Extremities/Musculoskelatal: no calf tenderness, normal capillary refill, normal range of motion, non-tender, + pertinent finding (left anterior buitrago with approx 2 x 1.5 cm ulcer with epithelization without surrounding erythema, no purulent discharge) Neurologic/Psych: no motor/sensory deficits, alert, normal mood/affect, oriented x 3 Skin: normal color, warm/dry, + pertinent finding (see extremities) Hospital Course CP/ELEVATED TROPONIN hx of cad s/p stent mild elevation of troponin ekg unremarkable currently asymptomatic on aspirin, Plavix, Toprol xl and statin cardiology consulted and appreciate inputs plan for holter as out patient as per cardiology f/u wit cardiology COUGH/INFLUENZA B +influenza B PCR. on Tamiflu#4 complete 5 day course HX CHRONIC SYSTOLIC HF stable on Lasix will monitor. HTN Stable on Lasix, metoprolol, enalapril will monitor. DIPLOPIA' Acute CVA Patient with onset of right eye diplopia when both eyes are open, MRI head acute cva in left miesha MRA neck unremarkable diplopia getting better on aspirin and Plavix and statin pt/ot and speech evaluation aspirin dose increased to 162mg by neurology CTA head and neck shows severe stenosis of right vertebral artery and moderate stenosis of carotids consulted vascular surgery -to followup in 6 months DM II H A1c: 7.7 on 05/09 Holding oral meds hba1c 8.4 on iss d/c on home meds close f/u with pcp DYSLIPIDEMIA Lipid panel on 01/16: Total 99, LDL: 52, HDL: 32, triglycerides: 74. On statin WOUND LLE Per h and P:"Following with wound clinic Gwendolyn Rick. Reports wound is healing, denies or discharge. Hx wound culture was MSSA. Pt completed antibiotics one month ago. wound nurse consult" discharged home Total time spent on discharge = 35MINUTES This includes examination of the patient, discharge planning, medication reconciliation, and communication with other providers. Discharge Instructions Discharge Instructions Date of Service Sep 17, 2017. Admission Reason for Admission: Diplopia, Elevated Troponin, Influenza B Discharge Discharge Diagnosis / Problem: acute cva, diplopia, influenza B Discharge Goals Goal(s): Decrease discomfort, Improve function Activity Recommendations Activity Limitations: resume your previous activity . Instructions / Follow-Up Instructions / Follow-Up FOLLOWUP WITH FAMILY DOCTOR Zainab Vega, MarkRNunoNNunoPNuno on september 19 at 12: 55pm. FOLLOWUP WITH NEUROLOGY DR.Kathleen Perri Maher IN 2-3 WEEKS. FOLLOWUP WITH VASCULAR SURGERY IN 6 MONTHS WITH REPEAT CAROTID ULTRASOUND. FOLLOWUP WITH CARDIOLOGY WITH 14 day ZIO monitor. CARDIOLOGY GOING TO ARRANGE FOR MONITOR. CLOSE MONITOR FOR DIABETES WITH FAMILY DOCTOR. HBA1C 8.4 Risk Factors for Stroke: You can reduce your chances of stroke by working with your medical provider to adopt a healthy lifestyle. Some specific ways to lower your chance of stroke are: * If you are a smoker, now is the time to stop smoking cigarettes * If you are diabetic, improve the control of your blood sugars * Avoid excessive amounts of alcohol * Control high blood pressure * Lose weight if you are overweight * Be sure to lead an active lifestyle * Eat a healthy diet low in salt, cholesterol and fat You should know about other risk factors for stroke that you are unable to control. These include: * Age 55 years or older * Male gender * Certain racial groups: , or / * Family History of Stroke, Mini stroke or Heart Attack * Sickle Cell Disease Follow Up: It is important for you to keep your follow up appointments with your medical provider. Current Hospital Diet Patient's current hospital diet: Diabetes Type 2 Diet, AHA Diet (Heart Healthy) Discharge Diet Recommended Diet: AHA Diet (Heart Healthy), Diabetes Type 2 Diet Pending Studies Studies pending at discharge: no Laboratory Results Hemoglobin A1c Test 09/14/17 03:47 Range/Units Estimated Average Glucose 194 mg/dl Hemoglobin A1c 8.4 H 4.5-5.6 % Lipid Panel Test 09/14/17 03:47 Range/Units Triglycerides Level 143 0-150 mg/dl Cholesterol Level 95 0-200 mg/dl HDL Cholesterol 30 mg/dl Cholesterol/HDL Ratio 3.2 LDL Cholesterol, Calculated 36 mg/dl Medical Emergencies . Who to Call and When: Medical Emergencies: Call 911 immediately if you experience any of the following warning signs and symptoms of Stroke: * Sudden numbness or weakness of the face, arm or leg, especially on one side of the body * Sudden confusion, trouble speaking or understanding * Sudden trouble seeing in one or both eyes * Sudden trouble walking, dizziness, loss of balance or coordination * Sudden severe headache with no cause Do not delay calling 911 if you experience any warning signs or symptoms of a stroke. Delay in seeking medical attention may affect what treatments can be given to you. . Non-Emergent Contact Non-Emergency issues call your: Primary Care Provider . . "Provider Documentation" section prepared by Buster Thomason. . Stroke Core Measures Reason no t-PA for Stroke: Treatment not indicated Reason no antithrom by day 2: Treatment provided - N/A Reason no antithrom at D/C: Treatment provided - N/A Reason no statin at D/C: Treatment provided - N/A Reason no anticoag w/a fib: Treatment not indicated
== END 2017-09-17 13:00 | disposition home or self-care (01) | DRG 193 ==
LOC: C.EDB 16:02 → C.2T 18:44 → ENRESERV 18:52
PROVIDERS: ADMIT Hospitalist; ATTEND Internal Medicine
DX: J10.1 Influenza due to other identified influenza virus with other respiratory manifestations (principal); I63.29 Cerebral infarction due to unspecified occlusion or stenosis of other precerebral arteries; I11.0 Hypertensive heart disease with heart failure; I50.22 Chronic systolic (congestive) heart failure; R07.9 Chest pain, unspecified; H53.2 Diplopia; R05 Cough; I25.10 Atherosclerotic heart disease of native coronary artery without angina pectoris; E11.9 Type 2 diabetes mellitus without complications; E78.5 Hyperlipidemia, unspecified; I25.2 Old myocardial infarction; I25.5 Ischemic cardiomyopathy; N40.0 Benign prostatic hyperplasia without lower urinary tract symptoms; S81.802A Unspecified open wound, left lower leg, initial encounter; Z79.82 Long term (current) use of aspirin; Z79.84 Long term (current) use of oral hypoglycemic drugs; Z79.899 Other long term (current) drug therapy; Z72.89 Other problems related to lifestyle; Z95.5 Presence of coronary angioplasty implant and graft; Z82.49 Family history of ischemic heart disease and other diseases of the circulatory system; Z83.3 Family history of diabetes mellitus; X58.XXXA Exposure to other specified factors, initial encounter

== ENCOUNTER 2019-10-08 14:19 | Observation (INO) ==
--- OUTSIDE RECORDS SUMMARY | 2019-10-08 14:21 | External Medical Summary | Continuity of Care Document ---
:1945 Author Name Radha Noriega, Provider Address Unavailable Unavailable , Care Team Providers Name Role Phone Kai KIRKLAND M.D., E. PNuno Unavailable [email or web address] Unavailable Assessments Assessed Problems:Arm numbnessPain in both upper extremities Problems Arm numbness (782.0) (R20.0) Pain in both upper extremities (729.5) (M79.601) Allergies and Adverse Reactions Allergy history not documented Medications Medications not documented Procedures Procedures not documented Immunizations Immunizations not documented Plan of Treatment Planned Observations Planned Goals not documented Results No Known Results Results not documented Encounters Appointment; Jessika Quinn III, M.D. 27-Oct-2015 13:30 Encounter Diagnosis: Problem not documented
[2019-10-08] MEDS ORDERED: SODIUM CHLORIDE 0.9% 1000ML 500 ML IV ONE (14:45)
[2019-10-08] MEDS ORDERED: ACETAMINOPHEN 1,000 MG/100 ML VIAL IV STA (14:45)
--- NOTE | 2019-10-08 15:13 | Emergency Department Note ---
Impression & Plan Change in mental status, Weakness, Stroke-like symptoms, Acute neck pain ED Provider Note NAME: BRIANNA HENDRICKS AGE: 73 SEX: M : 1945 ARRIVES VIA: Walk-In INFORMANT: [Patient][family] ED PROVIDER(S): [Jose Rodgers MD] CHIEF COMPLAINT: Possible stroke HISTORY OF PRESENT ILLNESS: The patient is a 73-year-old male who presents the ER with possible stroke symptoms. The patient states that yesterday he began having a lot of neck pain, both sides of the neck were hurting and he just did not feel well. He was able to get around during the day and complete some tasks that he had planned. This morning, 9 hours ago, he awoke and felt weak and exhausted. He was not himself. His neck was painful. The pain was worse with movement, better with rest, the pain was severe and constant. The patient felt weak and just not right, his family went to check on him today and they felt that he was somewhat more confused and having a hard time getting out his words. They noticed a potential right-sided facial droop and they brought him to the hospital for evaluation. The patient admits that he is having a harder time finding his words. He complains also of the neck pain mentioned above. No leg weakness or arm weakness. No facial numbness. He does have a history of previous CVA. REVIEW OF SYSTEMS: See HPI for pertinent positives and negatives. A total of ten systems were reviewed and were otherwise negative. PMHx/PSHx: See Below SOCIAL HISTORY: See Below. PHYSICAL EXAM: GENERAL: Patient is in no acute distress. HEENT: No acute trauma, normocephalic atraumatic, mucous membranes moist, no nasal congestion, no scleral icterus. NECK: No stridor, no adenopathy, no meningismus, trachea is midline. LUNGS: Clear to auscultation bilaterally, no wheeze, no rhonchi, breath sounds equal. HEART: Without murmurs gallops or rubs, regular rate and rhythm. ABDOMEN: Soft, nontender, bowel sounds positive, no hernias, no peritonitis. EXTREMITIES: No cyanosis or edema, full range of motion of all the joints without pain or difficulty, bandage on the left anterior buitrago.. NEUROLOGIC: Oriented x 3, no extremity drift or cerebellar dysfunction. There is a subtle right facial droop. The patient does have a hard time finding his words, his speech is very slightly slurred. SKIN: No rash, no jaundice, no diaphoresis. DIFFERENTIAL DIAGNOSIS: Infection, dehydration, metabolic abnormality, hypo/hyperglycemia, electrolyte disturbance, anemia, hypoxia, cardiac sources, intracerebral event, toxicologic, neurologic, stroke, OH, TIA, as well as other pathologies. EMERGENCY DEPARTMENT COURSE/PROCEDURES: ECG: Indication was possible stroke. There is a normal sinus rhythm with a rate of 61. There is no ST elevation, no PVCs. The QTc is 422. No obvious ischemia. Continuous Cardiac Monitoring: An order was placed for continuous cardiac monitoring. The monitor shows a rate of 52 with sinus bradycardia. MEDICAL DECISION MAKING: There is a very slight leukocytosis, this could be consistent with infection or just the stress of today's presentation. No concerning anemia. There was a normal platelet count. No coagulopathy. No significant electrolyte abnormality or kidney failure. No evidence for hepatitis. Urinalysis does not show evidence for infection. Chest film does not show pneumonia or CHF. Brain CT showed no acute bleed or mass-effect. CTA of the head and neck showed narrowing of the right vertebral artery. There was no clot seen. EKG showed a sinus rhythm, no acute ischemia. Cardiac enzyme testing x1 was not consistent with acute cardiac injury. On exam, the patient did have some difficulty finding his words and there was a slight right facial droop. He had tenderness to palpate the muscles of the neck bilaterally. The patient presents with potential strokelike symptoms. He was given IV Tylenol for pain. He received IV saline for hydration. I did speak to neurology, I spoke with the on-call hospitalist. At this point, a hospital stay and further work-up was felt warranted. I discussed all my findings with the patient and his family. I do think the patient's neck pain is musculoskeletal. The change in mental status and speech issues along with facial droop require further work-up. A small stroke is certainly possible. An MRI is necessary I suspect. Of note, the patient is clearly not a candidate for TPA as his symptoms have been ongoing for as long as yesterday. Past Med/Surg History Medical History CAD (coronary artery disease) (Inactive) "12/2016 - [facility] – [place] - cardiac cath - 2 APRIL LAD" CVA (cerebral vascular accident) Social History Feels Safe at Home: Yes Smoking Status: Never smoker Allergies Allergies Allergy/AdvReac Type Severity Reaction Status Date / Time No Known Allergies Allergy Verified 10/08/19 15:56 Home Meds Home Medications Medication Instructions Recorded Confirmed aspirin [Aspir-81] 81 mg PO DAILY 10/08/19 10/08/19 atorvastatin [Lipitor] 40 mg PO DAILY 10/08/19 10/08/19 carvedilol [Coreg] 6.25 mg PO BID 10/08/19 10/08/19 enalapril maleate [Vasotec] 20 mg PO DAILY 10/08/19 10/08/19 furosemide [Lasix] 20 mg PO DAILY 10/08/19 10/08/19 metformin 1,000 mg PO BID 10/08/19 10/08/19 [id number] 1 tab PO DAILY 10/08/19 10/08/19 [Centrum Silver] sildenafil [Viagra] 100 mg PO UD 10/08/19 10/08/19 Results & Data (ED) Vital Signs Vital Signs - 24 hr 10/08/19 14:24 10/08/19 14:36 10/08/19 14:37 Temperature 36.7 C Temperature Source Oral Pulse Rate 58 L 64 63 Pulse Rate from SpO2 Sensor 58 L 63 Respiratory Rate 20 19 20 Blood Pressure 138/81 165/76 H Blood Pressure Mean 100 112 Pulse Oximetry 90 96 96 Oxygen Delivery Method Room Air Sepsis Recent Fever Within 48 Hours No Sepsis Action Taken by Nursing No Action Required 10/08/19 14:40 10/08/19 14:50 10/08/19 15:00 Temperature Temperature Source Pulse Rate 72 61 63 Pulse Rate from SpO2 Sensor 60 63 Respiratory Rate 16 23 18 Blood Pressure Blood Pressure Mean Pulse Oximetry 96 95 Oxygen Delivery Method Sepsis Recent Fever Within 48 Hours Sepsis Action Taken by Nursing 10/08/19 15:02 10/08/19 15:10 10/08/19 15:20 Temperature Temperature Source Pulse Rate 60 58 L 57 L Pulse Rate from SpO2 Sensor 58 L 58 L 56 L Respiratory Rate 22 28 H 27 H Blood Pressure 137/62 Blood Pressure Mean 86 Pulse Oximetry 96 95 96 Oxygen Delivery Method Sepsis Recent Fever Within 48 Hours Sepsis Action Taken by Nursing 10/08/19 15:30 10/08/19 15:31 10/08/19 15:58 Temperature Temperature Source Pulse Rate 60 55 L Pulse Rate from SpO2 Sensor 57 L 54 L Respiratory Rate 19 25 H 14 Blood Pressure 123/63 Blood Pressure Mean 79 Pulse Oximetry 95 95 Oxygen Delivery Method Sepsis Recent Fever Within 48 Hours Sepsis Action Taken by Nursing 10/08/19 15:59 10/08/19 16:00 10/08/19 16:01 Temperature Temperature Source Pulse Rate 65 58 L 59 L Pulse Rate from SpO2 Sensor 64 57 L 58 L Respiratory Rate 20 24 22 Blood Pressure 147/72 H 137/62 Blood Pressure Mean 107 78 Pulse Oximetry 96 96 96 Oxygen Delivery Method Sepsis Recent Fever Within 48 Hours Sepsis Action Taken by Nursing 10/08/19 16:10 10/08/19 16:20 Temperature Temperature Source Pulse Rate 49 L 52 L Pulse Rate from SpO2 Sensor 50 L 50 L Respiratory Rate 16 20 Blood Pressure Blood Pressure Mean Pulse Oximetry 97 97 Oxygen Delivery Method Sepsis Recent Fever Within 48 Hours Sepsis Action Taken by Shelter Medications Current Medication List: was personally reviewed by tn Laboratory Data Attestation: I reviewed the patient's lab results. Result diagrams: 10/08/19 14:45 10/08/19 14:45 Lab Results 10/08/19 10/08/19 10/08/19 Range/Units 14:45 14:45 14:45 WBC 11.35 H (4.8-10.8) K/uL RBC 4.50 L (4.7-6.1) M/uL Hgb 13.2 L (14.0-18.0) g/dL Hct 41.0 L (42-52) % MCV 91.1 (80-100) fL MCH 29.3 (25-34) pg MCHC 32.2 (32-36) g/dL RDW Std Deviation 47.4 H (36.4-46.3) fL RDW Coeff of Margi 14.3 (11.5-14.5) % Plt Count 312 (130-400) K/uL MPV 9.6 (7.4-10.4) fL Immature Gran % (Auto) 0.2 % Neut % (Auto) 74.0 % Lymph % (Auto) 15.0 % [place] % (Auto) 8.0 % Eos % (Auto) 2.5 % Baso % (Auto) 0.3 % Immature Gran # (Auto) 0.02 (0.00-0.02) K/uL Neut # (Auto) 8.41 H (1.4-6.5) K/uL Lymph # (Auto) 1.70 (1.2-3.4) K/uL [place] # (Auto) 0.91 H (0.11-0.59) K/uL Eos # (Auto) 0.28 (0-0.5) K/uL Baso # (Auto) 0.03 (0-0.2) K/uL PT 10.5 (9.0-12.0) Seconds INR 1.0 (0.9-1.1) APTT 29.6 (21.0-31.0) Seconds PTT Ratio 1.1 Sodium 139 (136-145) mmol/L Potassium 4.3 (3.5-5.1) mmol/L Chloride 107 (98-107) mmol/L Carbon Dioxide 28 (21-32) mmol/L Anion Gap 4.0 (3-11) BUN 22 H (7-18) mg/dl Creatinine 1.16 (0.6-1.4) mg/dl Est Cr Clr Drug Dosing 57.6 ml/min Est GFR ( Amer) 72.0 Est GFR (Non-Af Amer) 62.1 BUN/Creatinine Ratio 18.7 (10-20) Glucose 118 H (70-99) mg/dl Calcium 9.2 (8.5-10.1) mg/dl Magnesium 1.8 (1.8-2.4) mg/dl Total Bilirubin 0.7 (0.2-1) mg/dl AST 12 L (15-37) U/L ALT 26 (12-78) U/L Alkaline Phosphatase 87 (45-117) U/L Troponin I < 0.015 (0-0.045) ng/ml Total Protein 7.3 (6.4-8.2) gm/dl Albumin 3.9 (3.4-5.0) gm/dl Globulin 3.4 (2.5-4.0) gm/dl Albumin/Globulin Ratio 1.1 (0.9-2) Urine Color Urine Appearance (Clear) Urine pH (4.5-7.5) Ur Specific [place] (1.000-1.030) Urine Protein (Negative) Urine Glucose (UA) (Negative) Urine Ketones (Negative) Urine Blood (Negative) Urine Nitrite (Negative) Urine Bilirubin (Negative) Urine Urobilinogen (Negative) Ur Leukocyte Esterase (Negative) 10/08/19 Range/Units 15:58 WBC (4.8-10.8) K/uL RBC (4.7-6.1) M/uL Hgb (14.0-18.0) g/dL Hct (42-52) % MCV (80-100) fL MCH (25-34) pg MCHC (32-36) g/dL RDW Std Deviation (36.4-46.3) fL RDW Coeff of Margi (11.5-14.5) % Plt Count (130-400) K/uL MPV (7.4-10.4) fL Immature Gran % (Auto) % Neut % (Auto) % Lymph % (Auto) % [place] % (Auto) % Eos % (Auto) % Baso % (Auto) % Immature Gran # (Auto) (0.00-0.02) K/uL Neut # (Auto) (1.4-6.5) K/uL Lymph # (Auto) (1.2-3.4) K/uL [place] # (Auto) (0.11-0.59) K/uL Eos # (Auto) (0-0.5) K/uL Baso # (Auto) (0-0.2) K/uL PT (9.0-12.0) Seconds INR (0.9-1.1) APTT (21.0-31.0) Seconds PTT Ratio Sodium (136-145) mmol/L Potassium (3.5-5.1) mmol/L Chloride (98-107) mmol/L Carbon Dioxide (21-32) mmol/L Anion Gap (3-11) BUN (7-18) mg/dl Creatinine (0.6-1.4) mg/dl Est Cr Clr Drug Dosing ml/min Est GFR ( Amer) Est GFR (Non-Af Amer) BUN/Creatinine Ratio (10-20) Glucose (70-99) mg/dl Calcium (8.5-10.1) mg/dl Magnesium (1.8-2.4) mg/dl Total Bilirubin (0.2-1) mg/dl AST (15-37) U/L ALT (12-78) U/L Alkaline Phosphatase (45-117) U/L Troponin I (0-0.045) ng/ml Total Protein (6.4-8.2) gm/dl Albumin (3.4-5.0) gm/dl Globulin (2.5-4.0) gm/dl Albumin/Globulin Ratio (0.9-2) Urine Color Yellow Urine Appearance Clear (Clear) Urine pH 5.0 (4.5-7.5) Ur Specific [place] 1.040 H (1.000-1.030) Urine Protein Negative (Negative) Urine Glucose (UA) Negative (Negative) Urine Ketones Negative (Negative) Urine Blood Trace H (Negative) Urine Nitrite Negative (Negative) Urine Bilirubin Negative (Negative) Urine Urobilinogen Negative (Negative) Ur Leukocyte Esterase Negative (Negative) Administered Medications Ioversol (Optiray 320 125ml) 120 ml IV ONCE PRN PRN Reason: Interaction Checking Stop: 10/12/19 15:54 Last Admin: 10/08/19 15:55 Dose: 120 ml Documented by: [id number] Discontinued Medications Sodium Chloride (Nss 1000ml) 500 mls @ 999 mls/hr IV .Q31M ONE Stop: 10/08/19 15:15 Last Admin: 10/08/19 15:03 Dose: 999 mls/hr Documented by: [id number] Acetaminophen (Ofirmev) 1,000 mg in 100 mls @ 400 mls/hr IV NOW STA Stop: 10/08/19 14:59 Last Infusion: 10/08/19 15:26 Dose: 0 mls/hr Documented by: [id number] Admin: 10/08/19 15:03 Dose: 400 mls/hr Documented by: [id number] Imaging Data Radiologist's Impression: CT ANGIOGRAM OF THE BRAIN; CT ANGIOGRAM OF THE NECK CLINICAL HISTORY: Strokelike symptoms. COMPARISON STUDY: Unenhanced CT of the brain performed concurrently on 10/08/2019. CT angiogram of the head and neck dated 09/14/2017. TECHNIQUE: Following the IV administration of 120 of Optiray 320, CT angiogram of the head and neck was performed from the aortic arch to the vertex. Images are reviewed in the axial, sagittal, and coronal planes. 3-D MIPS images are created and assessed. IV contrast was administered without complication. All measurements were calculated based on NASCET criteria. A dose lowering technique was utilized adhering to the principles of ALARA. CT DOSE: 1284.72 mGy.cm FINDINGS: Brain parenchyma: There is age-related involutional change noting moderate subcortical and periventricular microangiopathic disease. There is no hemorrhage, mass effect, or evidence of acute territorial ischemia by CT criteria. There is no evidence of enhancing mass lesion on the angiogram phase images. The ventricles, sulci, and cisterns are prominent secondary to involutional change. Cisneros-white matter differentiation is preserved. No extra- axial fluid collection is seen. Thoracic aorta: Visualized portions of the thoracic aorta are normal in caliber. The aortic arch demonstrates bovine variant anatomy. Right carotid arterial system: The right common carotid artery is widely patent. Advanced atherosclerotic plaque is noted in the carotid bulb and proximal internal carotid artery. This causes approximately 50-75% stenosis at the origin of the right internal carotid artery. The remainder of the right internal carot id artery is patent. Left carotid arterial system: The left common carotid artery is patent, as are the left internal and external carotid arteries. Atherosclerotic plaque in the distal common carotid artery causes less than 50% luminal narrowing. Atherosclerotic plaque is also seen within the carotid bulb causing less than 50% luminal narrowing of the proximal internal carotid artery. 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 Moderate stenosis at the origin of the left vertebral artery. The vertebral arteries are otherwise patent. Subclavian arteries: Widely patent bilaterally. Intracranial vasculature: There is atherosclerotic calcification of the cavernous carotid and vertebral arteries. There is origin of the left posterior cerebral artery. The internal carotid arteries are patent at the skull base, as are the anterior and middle cerebral arteries bilaterally. The vertebrobasilar system and posterior cerebral arteries are patent. 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 The left vertebral artery is dominant. There is no aneurysm or focal vessel cut off seen throughout the intracranial circulation. Jugular veins: Patent bilaterally. Dural sinuses: Patent. Lung apices: Partially visualized upper lobe lung parenchyma appears clear. Soft tissues: The visualized pharyngeal soft tissues are normal in appearance noting angiographic phase technique. The oropharyngeal airway appears widely patent. A 10 mm low-attenuation nodule is noted in the right lobe of the thyroid gland. The salivary glands are normal in appearance. No cervical lymphadenopathy is seen. Skeletal structures: The skeletal structures are osteopenic. The calvarium appears intact. The cervical spine is maintained noting multilevel spondylosis. No lytic or blastic lesion is seen. Sinuses and mastoids: There is complete opacification of the left maxillary antrum. There is near-complete opacification is seen in the left ethmoid sinuses. Mild mucosal thickening is noted in the right maxillary antrum. Moderate mucosal thickening seen in the right sphenoid sinus. Trace mucosal thickening is noted in the left sphenoid sinus and the frontal sinuses. The mastoid air cells are well pneumatized. IMPRESSION: 1. There is no hemorrhage, mass effect, or evidence of acute territorial ische nehemias by CT criteria noting angiographic phase technique. 2. 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 3. The remaining intracranial vessels are patent. 4. There is high-grade stenosis with near complete occlusion at the origin of the right vertebral artery. 5. There is moderate stenosis at the origin of the left vertebral artery. 6. There is advanced atherosclerotic plaque with 50-75% stenosis at the origin of the right internal carotid artery. The remainder of the right internal carotid artery is patent. 7. Atherosclerotic plaque causes less than 50% luminal narrowing of the distal left common carotid artery and at the origin of the left internal carotid artery. 8. Paranasal sinus disease as above. CT OF THE HEAD WITHOUT CONTRAST CLINICAL HISTORY: Stroke evaluation COMPARISON STUDY: Head CT and CTA of the head September 14, 2017. MRI of the brain September 13, 2017. TECHNIQUE: Helical axial images of the head were obtained without IV contrast. Automated exposure control was utilized for the study. A dose lowering technique was utilized adhering to the principles of ALARA. FINDINGS: No acute intracranial hemorrhage, midline shift or mass effect is present. Ventricular system is normal. The basilar cisterns are patent. There are no extra-axial collections. White matter hypodensity suggests small vessel disease. There are no findings to suggest acute dural sinus thrombosis or acute territorial infarct. Opacification of the left maxillary sinus is unchanged since exam of September 13, 2017 with widening of the left maxillary ostia and extension into the left nasal cavity with possible underlying polyp. There are no significant calvarial abnormalities. IMPRESSION: No acute intracranial findings. XR chest 1V portable CLINICAL HISTORY: 73 years-old Male presenting with weakness. TECHNIQUE: Portable upright AP view of the chest was obtained. COMPARISON: 09/13/2017. FINDINGS: Cardiac silhouette moderately enlarged. Pulmonary vascular prominence. No significant interstitial prominence. No focal opacity. No large effusion or pneumothorax. Thoracolumbar fusion hardware. Degenerative changes of the spine and glenohumeral joints. Upper abdomen normal. IMPRESSION: 1. Cardiomegaly with volume overload. No advanced congestive change or pulmonary edema. Blood Pressure Blood Pressure Findings: Elevated blood pressure Blood Pressure Disposition: further management by hospitalist Discharge Plan Visit Data Chief Complaint: Neck Injury/Pain Stated Complaint: neck and shoulder pain ED Provider: Jose Rodgers Discharge Problem: Change in mental status, Weakness, Stroke-like symptoms, Acute neck pain Patient Disposition: Being Evaluated by Hospitalist Condition: Good Forms Stand Alone Forms: My [facility] [employer] Prescriptions Prescriptions: No Action atorvastatin [Lipitor] 40 mg tablet 40 mg PO DAILY RF: 0 enalapril maleate [Vasotec] 20 mg tablet 20 mg PO DAILY RF: 0 aspirin [Aspir-81] 81 mg Tablet,Delayed Release (Dr/Ec) 81 mg PO DAILY RF: 0 sildenafil [Viagra] 100 mg tablet 100 mg PO UD RF: 0 carvedilol [Coreg] 3.125 mg tablet 6.25 mg PO BID RF: 0 metformin 1,000 mg tablet 1,000 mg PO BID RF: 0 furosemide [Lasix] 20 mg tablet 20 mg PO DAILY RF: 0 Centrum Silver 0.4-300-250 mg-mcg-mcg Tablet 1 tab PO DAILY RF: 0 Referrals Referrals: Zainab Dickerson C.R.N.PNuno [Primary Care Provider] - Discharge Problem: Change in mental status Qualifiers: Altered mental status type: unspecified Qualified Code(s): R41.82 - Altered mental status, unspecified
--- NOTE | 2019-10-08 15:17 | XRay Report ---
XR chest 1V portable CLINICAL HISTORY: 73 years-old Male presenting with weakness. TECHNIQUE: Portable upright AP view of the chest was obtained. COMPARISON: 09/13/2017. FINDINGS: Cardiac silhouette moderately enlarged. Pulmonary vascular prominence. No significant interstitial pr ominence. No focal opacity. No large effusion or pneumothorax. Thoracolumbar fusion hardware. Degener ative changes of the spine and glenohumeral joints. Upper abdomen normal. IMPRESSION: 1. Cardiomegaly with volume overload. No advanced congestive change or pulmonary edema. ACT 112: Negative or not required by law. Electronically signed by: Goyo Vaca M.D. 10/08/2019 3:16 PM
[2019-10-08 15:18] LABS: Alanine Aminotransferase 26 U/L (12-78); Albumin Level 3.9 gm/dl (3.4-5.0); Aspartate Aminotransferase 12 U/L (15-37); BUN Creatinine Ratio 18.7 (10-20); Blood Urea Nitrogen 22 mg/dl (7-18); Calcium 9.2 mg/dl (8.5-10.1); Carbon Dioxide 28 mmol/L (21-32); Chloride 107 mmol/L (98-107); Creatinine Clr Calc Pharmacy 57.6 ml/min; Est GFR (Non-African American) 62.1; Glucose 118 mg/dl (70-99); Magnesium 1.8 mg/dl (1.8-2.4); Potassium 4.3 mmol/L (3.5-5.1); Sodium 139 mmol/L (136-145)
[2019-10-08 15:19] LABS: Basophils # (auto) 0.03 K/uL (0-0.2); Basophils % (auto) 0.3 %; Eosinophils # (auto) 0.28 K/uL (0-0.5); Eosinophils % (auto) 2.5 %; Hemoglobin 13.2 g/dL (14.0-18.0); Immature Granulocytes # (auto) 0.02 K/uL (0.00-0.02); Immature Granulocytes % (auto) 0.2 %; Mean Corpuscular Hemoglobin 29.3 pg (25-34); Mean Corpuscular Hgb Conc 32.2 g/dL (32-36); Mean Corpuscular Volume 91.1 fL (80-100); Mean Platelet Volume 9.6 fL (7.4-10.4); Monocytes # (auto) 0.91 K/uL (0.11-0.59); Neutrophils # (auto) 8.41 K/uL (1.4-6.5); Platelet Count 312 K/uL (130-400); RDW Coefficient of Variation 14.3 % (11.5-14.5); RDW Standard Deviation 47.4 fL (36.4-46.3); White Blood Count 11.35 K/uL (4.8-10.8)
[2019-10-08 15:20] LABS: Partial Thromboplastin Ratio 1.1; Partial Thromboplastin Time 29.6 Seconds (21.0-31.0); Prothrombin Time 10.5 Seconds (9.0-12.0)
[2019-10-08 15:23] LABS: Albumin Globulin Ratio 1.1 (0.9-2); Alkaline Phosphatase 87 U/L (45-117); Bilirubin,Total 0.7 mg/dl (0.2-1); Globulin 3.4 gm/dl (2.5-4.0); Total Protein 7.3 gm/dl (6.4-8.2); Troponin I < 0.015 ng/ml (0-0.045)
[2019-10-08] MEDS ORDERED: OPTIRAY 320 125ml IV PRN (15:55)
--- NOTE | 2019-10-08 15:59 | CT Scan Report ---
CT OF THE HEAD WITHOUT CONTRAST CLINICAL HISTORY: Stroke evaluation COMPARISON STUDY: Head CT and CTA of the head September 14, 2017. MRI of the brain September 13, 2017. TECHNIQUE: Helical axial images of the head were obtained without IV contrast. Automated exposure con trol was utilized for the study. A dose lowering technique was utilized adhering to the principles o f ALARA. FINDINGS: No acute intracranial hemorrhage, midline shift or mass effect is present. Ventricular syst em is normal. The basilar cisterns are patent. There are no extra-axial collections. White matter hyp odensity suggests small vessel disease. There are no findings to suggest acute dural sinus thrombosis or acute territorial infarct. Opacification of the left maxillary sinus is unchanged since exam of 2017 with widening of the left maxillary ostia and extension into the left nasal cavity with possible underlying polyp. There are no significant calvarial abnormalities. IMPRESSION: No acute intracranial findings. ACT 112: Negative or not required by law. Electronically signed by: Ralph Dang M.D. 10/08/2019 3:58 PM
--- NOTE | 2019-10-08 16:11 | CT Scan Report ---
CT ANGIOGRAM OF THE BRAIN; CT ANGIOGRAM OF THE NECK CLINICAL HISTORY: Strokelike symptoms. COMPARISON STUDY: Unenhanced CT of the brain performed concurrently on 10/08/2019. CT angiogram of the head and neck dated 09/14/2017. TECHNIQUE: Following the IV administration of 120 of Optiray 320, CT angiogram of the head and neck w as performed from the aortic arch to the vertex. Images are reviewed in the axial, sagittal, and joleen nal planes. 3-D MIPS images are created and assessed. IV contrast was administered without complicati on. All measurements were calculated based on NASCET criteria. A dose lowering technique was utilize d adhering to the principles of ALARA. CT DOSE: 1284.72 mGy.cm FINDINGS: Brain parenchyma: There is age-related involutional change noting moderate subcortical and periventri cular microangiopathic disease. There is no hemorrhage, mass effect, or evidence of acute territorial ischemia by CT criteria. There is no evidence of enhancing mass lesion on the angiogram phase images . The ventricles, sulci, and cisterns are prominent secondary to involutional change. Cisneros-white qian er differentiation is preserved. No extra-axial fluid collection is seen. Thoracic aorta: Visualized portions of the thoracic aorta are normal in caliber. The aortic arch demo nstrates bovine variant anatomy. Right carotid arterial system: The right common carotid artery is widely patent. Advanced atheroscler otic plaque is noted in the carotid bulb and proximal internal carotid artery. This causes approximat itzel 50-75% stenosis at the origin of the right internal carotid artery. The remainder of the right in ternal carotid artery is patent. Left carotid arterial system: The left common carotid artery is patent, as are the left internal and external carotid arteries. Atherosclerotic plaque in the distal common carotid artery causes less nadia n 50% luminal narrowing. Atherosclerotic plaque is also seen within the carotid bulb causing less nadia n 50% luminal narrowing of the proximal internal carotid artery. 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 Mo derate stenosis at the origin of the left vertebral artery. The vertebral arteries are otherwise bland nt. Subclavian arteries: Widely patent bilaterally. Intracranial vasculature: There is atherosclerotic calcification of the cavernous carotid and vertebr al arteries. There is origin of the left posterior cerebral artery. The internal carotid arteri es are patent at the skull base, as are the anterior and middle cerebral arteries bilaterally. The ve rtebrobasilar system and posterior cerebral arteries are patent. 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 The left vertebral artery is dominant. There i s no aneurysm or focal vessel cut off seen throughout the intracranial circulation. Jugular veins: Patent bilaterally. Dural sinuses: Patent. Lung apices: Partially visualized upper lobe lung parenchyma appears clear. Soft tissues: The visualized pharyngeal soft tissues are normal in appearance noting angiographic pha se technique. The oropharyngeal airway appears widely patent. A 10 mm low-attenuation nodule is noted in the right lobe of the thyroid gland. The salivary glands are normal in appearance. No cervical ly mphadenopathy is seen. Skeletal structures: The skeletal structures are osteopenic. The calvarium appears intact. The cervic al spine is maintained noting multilevel spondylosis. No lytic or blastic lesion is seen. Sinuses and mastoids: There is complete opacification of the left maxillary antrum. There is near-com plete opacification is seen in the left ethmoid sinuses. Mild mucosal thickening is noted in the righ t maxillary antrum. Moderate mucosal thickening seen in the right sphenoid sinus. Trace mucosal thick ening is noted in the left sphenoid sinus and the frontal sinuses. The mastoid air cells are well pne umatized. IMPRESSION: 1. There is no hemorrhage, mass effect, or evidence of acute territorial ischemia by CT criteria noti ng angiographic phase technique. 2. 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 3. The remaining intracranial vessels are patent. 4. There is high-grade stenosis with near complete occlusion at the origin of the right vertebral art michelle. 5. There is moderate stenosis at the origin of the left vertebral artery. 6. There is advanced atherosclerotic plaque with 50-75% stenosis at the origin of the right internal carotid artery. The remainder of the right internal carotid artery is patent. 7. Atherosclerotic plaque causes less than 50% luminal narrowing of the distal left common carotid ar oje and at the origin of the left internal carotid artery. 8. Paranasal sinus disease as above. ACT 112: Negative or not required by law. Electronically signed by: Jose Castro M.D. 10/08/2019 4:09 PM
[2019-10-08 16:48] LABS: Appearance Urine Clear (Clear); Bacteria Urine Automated Negative (Negative); Bilirubin Urine Negative (Negative); Blood Urine Trace (Negative); Color Urine Yellow; Glucose Urine UA Negative (Negative); Ketones Urine Negative (Negative); Leukocyte Esterase Urine Negative (Negative); Nitrite Urine Negative (Negative); Protein Urine Negative (Negative); Urobilinogen Urine Negative (Negative)
[2019-10-08] MEDS ORDERED: CLOPIDOGREL BISULFATE 75 MG TAB PO ONE (17:30)
--- NOTE | 2019-10-08 17:37 | History & Physical Report ---
Date of Service October 08, 2019 Assessment & Plan (1) Stroke-like symptoms: Presented with neck pain and associated symptoms of slurred speech and right facial droop Noted to have minimal right facial droop in the ER when examined by ER physician Symptoms resolved during my examination Could have a TIA with history of stroke in the past CT of the head and neck showed; high-grade stenosis of the intracranial right vertebral artery at the skull base and at the origin. 50 to 70% stenosis at the origin of the right internal carotid artery Discussed with neurologist and was advised to add Plavix on top of aspirin MRI has been ordered Echo of the heart will be ordered to Pain stable in the emergency room during examination (2) Acute neck pain: Could be secondary to osteoarthritis Thing to suggest any ACS (3) Diabetes mellitus, type II: We will hold metformin while in the hospital Check hemoglobin A1c SSI (4) Systolic heart failure, chronic: History of systolic heart failure No acute fluid overload Chest x-rays not showing any CHF We will continue his current medication (5) Non-ST elevation NV (NSTEMI): None acute EKG is not showing any significant abnormality We will continue current medication (6) Hypertension: Blood pressure is controlled (7) Dyslipidemia: Continue statin DVT prophylaxis Subcu hep Status Full History of Present Illness Chief Complaint: Neck pain with slurred speech and questionable right facial droop Primary Care Provider: Zainab Tuan He is a 73-year-old male with significant past medical history including type 2 diabetes on oral medication, hypertension, hyperlipidemia, chronic systolic heart failure with history of non-ST elevation NV, lumbar stenosis with the history of lumbar surgery and past history of stroke with minimal or no right- sided symptoms apparently has been complaining of neck pain since yesterday. Initially he felt the neck pain on the left side and then involve the other side as well. The pain is about 7-8 on a scale of 0-10. He did not have any other symptoms associated with it. He was noted to have garbled speech and slight right facial droop by the family members and was brought into the hospital for further evaluation. He denies any headache, blurred vision, numbness or tingling involving any of the extremities, any nausea and or vomiting during examination. He was noted to have questionable right facial droop by the ER physician and by the time I saw her everything resolved and his speech became normal. No signs and/or symptoms of TIA any stroke noted during examination. CTA of the head and neck showed high-grade stenosis of the vertebral artery and 50 to 70% stenosis of the origin of the right internal carotid artery. He was admitted to telemetry unit with the possible diagnosis of stroke rule out. ER physician did discuss with the neurologist family preservation officer and was advised to start Plavix on top of aspirin. Allergies Allergy/AdvReac Type Severity Reaction Status Date / Time No Known Allergies Allergy Verified 10/08/19 15:56 Home Medications Home Medications Medication Instructions Recorded Confirmed Type aspirin [Aspir-81] 81 mg PO DAILY 10/08/19 10/08/19 History atorvastatin [Lipitor] 40 mg PO DAILY 10/08/19 10/08/19 History carvedilol [Coreg] 6.25 mg PO BID 10/08/19 10/08/19 History enalapril maleate [Vasotec] 20 mg PO DAILY 10/08/19 10/08/19 History furosemide [Lasix] 20 mg PO DAILY 10/08/19 10/08/19 History metformin 1,000 mg PO BID 10/08/19 10/08/19 History imjwnifa-obr-UI-lycopen-lutein 1 tab PO DAILY 10/08/19 10/08/19 History [Centrum Silver] sildenafil [Viagra] 100 mg PO UD 10/08/19 10/08/19 History Past Med/Surg History Medical History (Updated 10/08/19 @ 17:30 by Jose Rodgers MD) CAD (coronary artery disease) (Inactive) "12/2016 [place] [facility] [place] - 2 APRIL LAD" CVA (cerebral vascular accident) Social History Feels Safe at Home: Yes Smoking Status: Never smoker Review of Systems Review of Systems: All systems reviewed & are unremarkable except as noted in HPI & below Physical Exam Physical Exam: Lying in bed comfortably Constitutional: well nourished; no acute distress and not ill appearing Eyes: PERRL, conjunctivae normal, anicteric sclerae ENMT: external ear and nose normal, oropharynx normal Neck: trachea midline; no tracheal deviation Minimal pain with movements of the neck Respiratory: normal respiratory effort; no respiratory distress Auscul tation: lungs clear to auscultation bilaterally Cardiovascular: Rate/Rhythm: regular rate and regular rhythm Heart Sounds: no murmur Gastrointestinal (Abdomen): Inspection/Auscultation: abdomen normal to inspection and normal bowel sounds Percussion/Palpation: abdomen soft; abdomen nontender Musculoskeletal: No acute arthritis involving any joints Neurologic: CN's II-XI intact bilaterally and moves all extremities; no focal motor deficits Speech / Cognition: normal speech Motor/Sensory: no tremor No facial droop and no abnormalities in speech. Results & Data Results & Data ([facility]) Vital Signs (Past 12 Hours) Vital Signs Temp Pulse Resp BP Pulse Ox 10/08/19 16:20 52 L 20 97 10/08/19 16:10 49 L 16 97 10/08/19 16:01 59 L 22 96 10/08/19 16:00 58 L 24 137/62 96 10/08/19 15:59 65 20 147/72 H 96 10/08/19 15:58 14 10/08/19 15:31 55 L 25 H 95 10/08/19 15:30 60 19 123/63 95 10/08/19 15:20 57 L 27 H 96 10/08/19 15:10 58 L 28 H 95 10/08/19 15:02 60 22 137/62 96 10/08/19 15:00 63 18 95 10/08/19 14:50 61 23 96 10/08/19 14:40 72 16 10/08/19 14:37 63 20 96 10/08/19 14:36 64 19 165/76 H 96 10/08/19 14:24 36.7 C 58 L 20 138/81 90 Laboratory Results Short CBC 10/08/19 Range/Units 14:45 WBC 11.35 H (4.8-10.8) K/uL Hgb 13.2 L (14.0-18.0) g/dL Hct 41.0 L (42-52) % Plt Count 312 (130-400) K/uL BMP 10/08/19 14:45 Sodium 139 Potassium 4.3 Chloride 107 Carbon Dioxide 28 BUN 22 H Creatinine 1.16 Glucose 118 H Calcium 9.2 Cardiac Enzymes 10/08/19 Range/Units 14:45 Troponin I < 0.015 (0-0.045) ng/ml Liver Function 10/08/19 Range/Units 14:45 Total Bilirubin 0.7 (0.2-1) mg/dl AST 12 L (15-37) U/L ALT 26 (12-78) U/L Alkaline Phosphatase 87 (45-117) U/L Albumin 3.9 (3.4-5.0) gm/dl Urine 10/08/19 Range/Units 15:58 Urine Color Yellow Urine Appearance Clear (Clear) Urine pH 5.0 (4.5-7.5) Ur Specific [place] 1.040 H (1.000-1.030) Urine Protein Negative (Negative) Urine Glucose (UA) Negative (Negative) Diagnostic Findings Neck & Head CTA:1. There is no hemorrhage, mass effect, or evidence of acute territorial ischemia by CT criteria noting angiographic phase technique. 2. 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 3. The remaining intracranial vessels are patent. 4. There is high-grade stenosis with near complete occlusion at the origin of the right vertebral artery. 5. There is moderate stenosis at the origin of the left vertebral artery. 6. There is advanced atherosclerotic plaque with 50-75% stenosis at the origin of the right internal carotid artery. The remainder of the right internal carotid artery is patent. 7. Atherosclerotic plaque causes less than 50% luminal narrowing of the distal left common carotid artery and at the origin of the left internal carotid artery. 8. Paranasal sinus disease as above. CT head-Negative Medications Administered Current Inpatient Medications Clopidogrel Bisulfate (Plavix) 75 mg PO QAM [facility] Stop: 11/08/19 08:59 Heparin Sodium (Porcine) (Heparin Sodium (Porcine)) 5,000 units SQ Q12 [facility] Stop: 11/07/19 20:59 Ioversol (Optiray 320 125ml) 120 ml IV ONCE PRN PRN Reason: Interaction Checking Stop: 10/12/19 15:54 Last Admin: 10/08/19 15:55 Dose: 120 ml Documented by: Code Status & VTE Plan VTE Prophylaxis Plan VTE Prophylaxis will be ordered: Yes
[2019-10-08] MEDS ORDERED: ACETAMINOPHEN 500 MG TAB PO PRN (17:41)
[2019-10-08] MEDS ORDERED: DEXTROSE 50% 50 ML SYRINGE IV PRN (18:45)
[2019-10-08] MEDS ORDERED: GLUCOSE 40% GEL 15 GM TUBE PO PRN (18:45)
[2019-10-08] MEDS ORDERED: CARBOHYDRATES FOR HYPOGLYCEMIA PO PRN (18:45)
[2019-10-08] MEDS ORDERED: GLUCOSE 10 TABS/TUBE PO PRN (18:45)
[2019-10-08] MEDS ORDERED: GLUCAGON FOR INJ 1 MG VIAL IM PRN (18:45)
--- NOTE | 2019-10-08 18:53 | Magnetic Resonance Report ---
MRI OF THE BRAIN WITHOUT CONTRAST CLINICAL HISTORY: Slurred speech. Evaluate for stroke. COMPARISON STUDY: MRI of the brain September 13, 2017. Head CT and CTA of the head performed earlier [place] TECHNIQUE: Utilizing a 1.5 Jessika magnet and dedicated coil, multiplanar, multiecho imaging of the bra in was performed without IV contrast. FINDINGS: There are no foci of restricted diffusion to suggest acute infarct. No acute intracranial h emorrhage, midline shift or mass effect is present. Ventricular system is normal. Basilar cisterns ar e patent. There are no extra-axial collections. Flow-voids for the major intracranial vessels are pre sent. No intracranial masses identified on this unenhanced examination. As before, the left maxillary sinus is opacified with widening of the left maxillary ostium with extension into the left nasal cav ity. This is similar to MRI of September 13, 2017. Calvarial signal is maintained. White matter T2 hyperi ntense foci suggest moderate small vessel disease. IMPRESSION: 1. No acute intracranial findings. 2. Moderate small vessel disease. 3. Opacified left maxillary sinus with widening of the left maxillary ostium and extension into the n amber cavity which is similar to MRI of September 14, 2017. This favors a polyp. ACT 112: Negative or not required by law. Electronically signed by: Ralph Dang M.D. 10/08/2019 6:52 PM
[2019-10-08] MEDS: CLOPIDOGREL BISULFATE 75 MG TAB PO SCH (19:47)
[2019-10-08] MEDS: carvediloL 6.25 MG TAB PO SCH (19:47)
[2019-10-08] MEDS: HEPARIN SOD 5,000 UNIT/0.5 ML VIAL SQ SCH (19:47)
[2019-10-08] MEDS: INSULIN ASPART 100 UNITS/ML 3 ML PEN SC SCH (22:02)
[2019-10-09 03:57] LABS: Basophils # (auto) 0.03 K/uL (0-0.2); Basophils % (auto) 0.4 %; Eosinophils # (auto) 0.32 K/uL (0-0.5); Eosinophils % (auto) 4.3 %; Hematocrit (blood only) 37.9 % (42-52); Hemoglobin 12.3 g/dL (14.0-18.0); Immature Granulocytes # (auto) 0.02 K/uL (0.00-0.02); Immature Granulocytes % (auto) 0.3 %; Lymphocytes # (auto) 1.72 K/uL (1.2-3.4); Lymphocytes % (auto) 23.2 %; Mean Corpuscular Hemoglobin 29.5 pg (25-34); Mean Corpuscular Hgb Conc 32.5 g/dL (32-36); Mean Corpuscular Volume 90.9 fL (80-100); Mean Platelet Volume 9.3 fL (7.4-10.4); Monocytes # (auto) 0.69 K/uL (0.11-0.59); Monocytes % (auto) 9.3 %; Neutrophils # (auto) 4.63 K/uL (1.4-6.5); Neutrophils % (auto) 62.5 %; Platelet Count 253 K/uL (130-400); RDW Coefficient of Variation 14.2 % (11.5-14.5); RDW Standard Deviation 46.7 fL (36.4-46.3); Red Blood Count 4.17 M/uL (4.7-6.1); White Blood Count 7.41 K/uL (4.8-10.8)
[2019-10-09 04:15] LABS: BUN Creatinine Ratio 17.6 (10-20); Calcium 8.9 mg/dl (8.5-10.1); Creatinine Clr Calc Pharmacy 65.9 ml/min; Est GFR (African American) 84.1; Est GFR (Non-African American) 72.6; Magnesium 1.9 mg/dl (1.8-2.4); Potassium 4.1 mmol/L (3.5-5.1)
[2019-10-09 06:03] LABS: Estimated Average Glucose 154 mg/dl
[2019-10-09] MEDS: INSULIN ASPART 100 UNITS/ML 3 ML PEN SC SCH ×2 (07:50→11:47)
[2019-10-09] MEDS: CLOPIDOGREL BISULFATE 75 MG TAB PO SCH (07:51)
[2019-10-09] MEDS: carvediloL 6.25 MG TAB PO SCH (07:52)
[2019-10-09] MEDS: HEPARIN SOD 5,000 UNIT/0.5 ML VIAL SQ SCH (07:53)
[2019-10-09] MEDS ORDERED: ASPIRIN 81 MG ECTAB PO SCH (09:00)
[2019-10-09] MEDS ORDERED: ATORVASTATIN 40 MG TAB PO SCH (09:00)
[2019-10-09] MEDS ORDERED: FUROSEMIDE 20 MG TAB PO SCH (09:00)
[2019-10-09] MEDS ORDERED: ENALAPRIL MALEATE 10 MG TAB PO SCH (09:00)
[2019-10-09] MEDS ORDERED: CEROVITE ADV FORMULA TAB PO SCH (09:00)
--- NOTE | 2019-10-09 15:02 | Electrocardiogram Report ---
Test Reason : Blood Pressure : / mmHG Vent. Rate : 061 BPM Atrial Rate : 061 BPM P-R Int : 164 ms QRS Dur : 082 ms QT Int : 420 ms P-R-T Axes : 058 019 056 degrees QTc Int : 422 ms Normal sinus rhythm Low voltage QRS Septal infarct , age undetermined Abnormal ECG When compared with ECG of 15-SEP-2017 06:56, Premature ventricular complexes are no longer Present Septal infarct is now Present Confirmed by Swapnil Sim ([id number]) on 10/09/2019 3:02:14 PM Referred By: REFERRED SELF Confirmed By:Swapnil Sim
--- NOTE | 2019-10-09 15:31 | XRay Report ---
XR tibia fibula LT 2V CLINICAL HISTORY: Left lower leg non healing wound, evaluate for osteomyelitis. COMPARISON: Left knee radiographs April 11, 2011. FINDINGS: Left knee arthroplasty is noted. There is no periprosthetic fracture or lucency. Extensive vascular calcification is noted. Lateral view demonstrates soft tissue swelling overlying the anteri or left tibia. There is no evidence for osteomyelitis within the left tibia or fibula. No fracture is noted. No radiopaque foreign bodies are noted. IMPRESSION: 1. No evidence for osteomyelitis within the left tibia or fibula. 2. Soft tissue swelling overlying the anterior left tibia at site of wound. 3. Status post total left knee arthroplasty. No periprosthetic fracture or lucency. ACT 112: Negative or not required by law. Electronically signed by: Ralph Dang M.D. 10/09/2019 3:29 PM
--- NOTE | 2019-10-09 17:30 | Hospitalist Progress Note ---
Date of Service delayed entry date of service noted below October 09, 2019 Assessment & Plan (1) Stroke-like symptoms: POSSIBLE TRANSIENT ISCHEMIC ATTACK per Dr. Rome's notes: Presented with neck pain and associated symptoms of slurred speech and right facial droop Noted to have minimal right facial droop in the ER when examined by ER physician Symptoms resolved during my examination Could have a TIA with history of stroke in the past CT of the head and neck showed; high-grade stenosis of the intracranial right vertebral artery at the skull base and at the origin. 50 to 70% stenosis at the origin of the right internal carotid artery Brain MRI: 1. No acute intracranial findings. 2. Moderate small vessel disease. 3. Opacified left maxillary sinus with widening of the left maxillary ostium and extension into the nasal cavity which is similar to MRI of September 14, 2017. This favors a polyp. Echo: normal LV chamber size, moderate concentric LVH moderate sized apical, anteroseptal and anterior wall motion abnormality with hypokinesis of the segments LV systolic function low normal EF 50-55% grade 1 diastolic dysfunction interatrial septum intact no ASD no interatrial shunt (+) elevated left atrial pressure, pulmonary hypertension present 52mmHg --Evaluated by neurologist Dr. Larios Recommend adding Plavix to aspirin; after 3 weeks, discontinue aspirin, continue Plavix Patient apparently has history of GI bleed on aspirin and Plavix Omeprazole changed to pantoprazole to prevent interaction Monitor CBC, patient daughter educated to monitor for melena or hematochezia -- LDL needs to be 70 or less Zio patch monitor to r/o a fib, to be arranged per Neurologist Dr. Maher --- Follow-up with Dr. Ric Snow neurologist in 4 weeks HIGH GRADE STENOSIS INTRACRANIAL RIGHT VERTEBRAL ARTERY RIGHT INTERNAL CAROTID ARTERY STENOSIS -- per Dr. Maher's notes: High-grade stenosis of the intracranial right vertebral at the skull base with near occlusion at the origin of the right vertebral artery; this appears to be asymptomatic based on the patient's current symptoms. -- A 50%-75% stenosis at the origin of the right internal carotid artery. Presumably as well, this is asymptomatic given that the patient's exam in part was notable for a flattened right nasolabial fold. The patient will need a followup carotid ultrasound in 6 months with referral to vascular surgery if the degree of stenosis is 70% or greater. LEFT LOWER LEG CHRONIC NON HEALING WOUND Tibia xray: 1. No evidence for osteomyelitis within the left tibia or fibula. 2. Soft tissue swelling overlying the anterior left tibia at site of wound. 3. Status post total left knee arthroplasty. No periprosthetic fracture or lucency. -- wound cultures obtained: pending, please follow up -- prescribed Doxycycline 100mg BID x 10 days -- will need MRI of the leg to r/o osteomyelitis will need to establish again with wound care center please monitor closely Acute neck pain:Could be secondary to osteoarthritis --Resolved Diabetes mellitus, type II: -- continue Metformin will need strict control given TIA Systolic heart failure, chronic: -- euvolemic Non-ST elevation AR (NSTEMI): -- troponin negative, no signs of acute ischemia Hypertension Blood pressure is controlled will need strict control Dyslipidemia: Continue statin maintain LDL < 70 DVT prophylaxis Subcu heparin given Disposition d/c home ff up with PCP October 10 ff up with Neurologist Dr. Maher in 4 weeks Admission and Anticipated Discharge Date Admission Date: October 08, 2019 Subjective ff up for stroke like symptoms seen sitting up at the edge of the bed states he feels fine overall no slurred speech, dysphagia, weakness or numbness no new neuro symptoms no headache, dizziness, chest pain, dyspnea denies other symptoms states he feels back to baseline Review of Systems Review of Systems: All systems reviewed & are unremarkable except as noted in HPI & below Physical Exam Physical Exam: General- oriented x 3, not in distress, speaks in sentences with no effort or accessory muscle use Head- atraumatic Eyes- PERRL, EOMI, anicteric ENT- oropharynx clear Neck- supple, no JVD, no adenopathy, no thyromegaly; carotids +2/2, no bruits appreciated Lungs- clear to auscultation bilaterally, no rales/wheezes Heart- normal rate, regular rhythm; no murmur, no gallop, no rub appreciated Abdomen- normal bowel sounds, nondistended, soft, nontender, no masses or hepatosplenomegaly Extremities-(+) wound on the left anterior lower leg: around 2cm, with some yellow drainage, surrounding erythema, no warmth/tenderness no pretibial edema, no calf tenderness; peripheral pulses intact Neuro- alert, oriented x 3; CN 2-12 grossly intact except mild left facial droop; motor 5/5 bilaterally;sensation 100% on all extremities; no other gross focal neurologic deficits Skin- warm & dry Results & Data Results & Data ([facility]) Vital Signs (Past 12 Hours) Vital Signs Temp Pulse Pulse Pulse Resp BP BP 10/09/19 17:23 36.5 C 51 L 55 L 16 153/72 H 10/09/19 16:59 56 L 10/09/19 15:10 36.5 C 55 L 16 165/79 H 10/09/19 12:02 36.4 C L 49 L 18 153/72 H 10/09/19 08:33 88 10/09/19 07:56 36.6 C 54 L 18 168/78 H Pulse Ox 10/09/19 17:23 97 10/09/19 16:59 10/09/19 15:10 97 10/09/19 12:02 98 10/09/19 08:33 10/09/19 07:56 96 Laboratory Results all noted and reviewed
[2019-10-09] MEDS ORDERED: DOXYCYCLINE HYCLATE 100 MG CAP PO SCH (21:00)
--- NOTE | 2019-10-09 21:06 | Consultation Report ---
DATE OF CONSULTATION: 10/09/2019 REASON FOR CONSULTATION: Possible transient ischemic attacks. HISTORY OF PRESENT ILLNESS: The patient is a 73-year-old right-handed male with a prior history of stroke causing diplopia and word finding difficulty. On this background, the patient had been in his usual state of health; late on Monday evening developed some gradual onset of bilateral neck pain, which escalated the following day. Because of these symptoms, he felt he would go to [facility] to get Covid testing. He was given advice regarding getting a prescription from primary care and returned home. When his daughter spoke to him, he had some slurred speech, some stuttering of speech, and a right facial droop. He denied a headache, any change in vision, numbness or tingling, unilateral weakness or numbness. Symptoms lasted several hours and resolved. The patient was not otherwise ill and had not had any fevers, chills, sweats, weight loss, chest pain, palpitation, or shortness of breath. His neck pain was nonradiating. Neck pain resolved with intravenous Tylenol. His medical history is notable for coronary artery disease, status post placement of drug-eluting stents to the LAD and the aforementioned stroke. He has no history of rheumatic fever, murmur, cancer, or DVT. SOCIAL HISTORY: Nonsmoker, nondrinker. FAMILY HISTORY: Positive family history of vascular disease. HOME MEDICATIONS: Include aspirin 81, atorvastatin, Coreg, Vasotec, Lasix, metformin, multiple vitamins and Viagra. DIAGNOSTIC STUDIES: Labs on admission notable for white count of 11.4, H and H of 13.2/41, platelet count of 312. PT, PTT normal. Chemistry notable for mild elevation of BUN/creatinine of 22/1.16, glucose of 118, point of care glucose 137. Hemoglobin A1c of 7. Lipid profile appeared not to be checked on this admission. Urinalysis is notable for trace blood, 10-20 epithelial cells, negative urine bacteria. MRI of the brain, noncontrast, which I have reviewed, shows no acute intracranial abnormalities, moderate small vessel disease. CTA of the neck shows high-grade stenosis of the intracranial right vertebral at its skull base, high-grade stenosis with near complete occlusion of the right vertebral artery. Moderate stenosis at the origin of the left vertebral artery, advanced atherosclerotic plaque with 50%-75% stenosis at the origin of the right internal carotid. Remainder of the right internal carotid is patent and atherosclerotic plaque causing less than 50% narrowing of the left common carotid artery. CTA of the head showed normal intracranial vasculature. Echocardiogram showed a moderate-sized apical anteroseptal and anterior wall motion abnormality with hypokinesis, ejection fraction is 50%-55%, moderate left atrial enlargement, no interatrial shunt. Interatrial septum bows toward right atrium consistent with elevated left atrial pressure. Borderline aortic root dilatation. PAST MEDICAL HISTORY: Notable for history of stroke - localization unknown, type 2 diabetes, systolic heart failure, history of non-ST elevation CO, hypertension, hyperlipidemia. ALLERGIES: No allergies. PHYSICAL EXAMINATION: VITAL SIGNS: Blood pressure is 152/72, pulse is 55, temperature 36.5. GENERAL: The patient is awake and alert, oriented to person, place and time. No right/left confusion. No aphasia. Speech is minimally dysarthric with minor word finding difficulty and occasional stuttering. Daughter indicates that he is currently at baseline. NECK: There are no carotid bruits. HEART: No heart murmurs. Heart is regular rate and rhythm. NEUROLOGIC: Pupils are equal, round, reactive to light. The optic nerves are unremarkable. There is normal extraocular motility, visual llamas, facial sensation. With spontaneous speech, there appears to be a marginal flattening of the left nasolabial fold. With smile, there may be some minor flattening of the right nasolabial fold. Tongue is midline. Motor 5/5, no drift. Normal rapid alternating movements. Symmetric reflexes. Downgoing toes. Fnoisf-zt-[id number] and xlsx-gt-sccg are normal. Sensation is intact to light touch. Gait is unremarkable. IMPRESSION AND PLAN: 1. Presumed transient ischemic attack in the absence of other clear etiologies. Plan: Add Plavix to aspirin. Continue dual antiplatelet therapy for 21 days and then discontinue aspirin. The patient is advised to monitor for excessive bruising and bleeding. He has been on dual antiplatelet therapy in the past. The patient's LDL should be checked with a goal LDL of 70 or less. I have asked the patient's daughter to call the office, so that we can arrange a 14-day menu planner to evaluate for atrial fibrillation. 2. High-grade stenosis of the intracranial right vertebral at the skull base with near occlusion at the origin of the right vertebral artery; this appears to be asymptomatic based on the patient's current symptoms. 3. A 50%-75% stenosis at the origin of the right internal carotid artery. Presumably as well, this is asymptomatic given that the patient's exam in part was notable for a flattened right nasolabial fold. The patient will need a followup carotid ultrasound in 6 months with referral to vascular surgery if the degree of stenosis is 70% or greater. The patient should follow up with us post-discharge, either televideo or telephone within 4 weeks. I have advised his daughter to call the office, so we can schedule his menu planner. ABISAI
[2019-10-10] MEDS ORDERED: CEROVITE ADV FORMULA TAB PO SCH (07:00)
--- NOTE | 2019-10-10 19:21 | Discharge Summary ---
Date of Service October 10, 2019 Admission HPI Per Admitting Provider He is a 73-year-old male with significant past medical history including type 2 diabetes on oral medication, hypertension, hyperlipidemia, chronic systolic heart failure with history of non-ST elevation OR, lumbar stenosis with the history of lumbar surgery and past history of stroke with minimal or no right- sided symptoms apparently has been complaining of neck pain since yesterday. Initially he felt the neck pain on the left side and then involve the other side as well. The pain is about 7-8 on a scale of 0-10. He did not have any other symptoms associated with it. He was noted to have garbled speech and slight right facial droop by the family members and was brought into the hospital for further evaluation. He denies any headache, blurred vision, numbness or tingling involving any of the extremities, any nausea and or vomiting during examination. He was noted to have questionable right facial droop by the ER physician and by the time I saw her everything resolved and his speech became normal. No signs and/or symptoms of TIA any stroke noted during examination. CTA of the head and neck showed high-grade stenosis of the vertebral artery and 50 to 70% stenosis of the origin of the right internal carotid artery. He was admitted to telemetry unit with the possible diagnosis of stroke rule out. ER physician did discuss with the neurologist loss prevention analyst and was advised to start Plavix on top of aspirin. Admission Exam Per Admitting Provider Physical Exam: Lying in bed comfortably Constitutional: well nourished; no acute distress and not ill appearing Eyes: PERRL, conjunctivae normal, anicteric sclerae ENMT: external ear and nose normal, oropharynx normal Neck: trachea midline; no tracheal deviation Minimal pain with movements of the neck Respiratory: normal respiratory effort; no respiratory distress Auscultation: lungs clear to auscultation bilaterally Cardiovascular: Rate/Rhythm: regular rate and regular rhythm Heart Sounds: no murmur Gastrointestinal (Abdomen): Inspection/Auscultation: abdomen normal to inspection and normal bowel sounds Percussion/Palpation: abdomen soft; abdomen nontender Musculoskeletal: No acute arthritis involving any joints Neurologic: CN's II-XI intact bilaterally and moves all extremities; no focal motor deficits Speech / Cognition: normal speech Motor/Sensory: no tremor No facial droop and no abnormalities in speech. Principal Diagnosis TRANSIENT ISCHEMIC ATTACK Discharge Exam General- oriented x 3, not in distress, speaks in sentences with no effort or accessory muscle use Head- atraumatic Eyes- PERRL, EOMI, anicteric ENT- oropharynx clear Neck- supple, no JVD, no adenopathy, no thyromegaly; carotids +2/2, no bruits appreciated Lungs- clear to auscultation bilaterally, no rales/wheezes Heart- normal rate, regular rhythm; no murmur, no gallop, no rub appreciated Abdomen- normal bowel sounds, nondistended, soft, nontender, no masses or hepatosplenomegaly Extremities-(+) wound on the left anterior lower leg: around 2cm, with some yellow drainage, surrounding erythema, no warmth/tenderness no pretibial edema, no calf tenderness; peripheral pulses intact Neuro- alert, oriented x 3; CN 2-12 grossly intact except mild left facial droop; motor 5/5 bilaterally;sensation 100% on all extremities; no other gross focal neurologic deficits Skin- warm & dry Discharge Data Allergies Allergy/AdvReac Type Severity Reaction Status Date / Time No Known Allergies Allergy Verified 10/08/19 15:56 Consultations 10/08/19 16:38 ED Decision to Admit Stat 10/08/19 18:23 Consult Neurology Routine Ordered Studies 10/08/19 14:45 CT angio head w con Stat CT angio neck with con Stat 1. There is no hemorrhage, mass effect, or evidence of acute territorial ischemia by CT criteria noting angiographic phase technique. 2. 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 3. The remaining intracranial vessels are patent. 4. There is high-grade stenosis with near complete occlusion at the origin of the right vertebral artery. 5. There is moderate stenosis at the origin of the left vertebral artery. 6. There is advanced atherosclerotic plaque with 50-75% stenosis at the origin of the right internal carotid artery. The remainder of the right internal carotid artery is patent. 7. Atherosclerotic plaque causes less than 50% luminal narrowing of the distal left common carotid artery and at the origin of the left internal carotid artery. 8. Paranasal sinus disease as above. CT head/brain wo con Stat FINDINGS: No acute intracranial hemorrhage, midline shift or mass effect is present. Ventricular system is normal. The basilar cisterns are patent. There are no extra-axial collections. White matter hypodensity suggests small vessel disease. There are no findings to suggest acute dural sinus thrombosis or acute territorial infarct. Opacification of the left maxillary sinus is unchanged since exam of September 13, 2017 with widening of the left maxillary ostia and extension into the left nasal cavity with possible underlying polyp. There are no significant calvarial abnormalities. IMPRESSION: No acute intracranial findings. 10/08/19 17:18 MR brain wo con Routine FINDINGS: There are no foci of restricted diffusion to suggest acute infarct. No acute intracranial hemorrhage, midline shift or mass effect is present. Ventricular system is normal. Basilar cisterns are patent. There are no extra- axial collections. Flow-voids for the major intracranial vessels are present. No intracranial masses identified on this unenhanced examination. As before, the left maxillary sinus is opacified with widening of the left maxillary ostium with extension into the left nasal cavity. This is similar to MRI of September 13, 2017. Calvarial signal is maintained. White matter T2 hyperintense foci suggest moderate small vessel disease. IMPRESSION: 1. No acute intracranial findings. 2. Moderate small vessel disease. 3. Opacified left maxillary sinus with widening of the left maxillary ostium and extension into the nasal cavity which is similar to MRI of September 14, 2017. This favors a polyp. Tibia/Fibula Xray: FINDINGS: Left knee arthroplasty is noted. There is no periprosthetic fracture or lucency. Extensive vascular calcification is noted. Lateral view demonstrates soft tissue swelling overlying the anterior left tibia. There is no evidence for osteomyelitis within the left tibia or fibula. No fracture is noted. No radiopaque foreign bodies are noted. IMPRESSION: 1. No evidence for osteomyelitis within the left tibia or fibula. 2. Soft tissue swelling overlying the anterior left tibia at site of wound. 3. Status post total left knee arthroplasty. No periprosthetic fracture or lucency. Hospital Course (1) Stroke-like symptoms: POSSIBLE TRANSIENT ISCHEMIC ATTACK per Dr. Rome's notes: Presented with neck pain and associated symptoms of slurred speech and right facial droop Noted to have minimal right facial droop in the ER when examined by ER physician Symptoms resolved during my examination Could have a TIA with history of stroke in the past Brain MRI: 1. No acute intracranial findings. 2. Moderate small vessel disease. 3. Opacified left maxillary sinus with widening of the left maxillary ostium and extension into the nasal cavity which is similar to MRI of September 14, 2017. This favors a polyp. CT of the head and neck showed; high-grade stenosis of the intracranial right vertebral artery at the skull base and at the origin. 50 to 70% stenosis at the origin of the right internal carotid artery Echo: normal LV chamber size, moderate concentric LVH moderate sized apical, anteroseptal and anterior wall motion abnormality with hypokinesis of the segments LV systolic function low normal EF 50-55% grade 1 diastolic dysfunction interatrial septum intact no ASD no interatrial shunt (+) elevated left atrial pressure, pulmonary hypertension present 52mmHg --Evaluated by neurologist Dr. Larios Recommend adding Plavix to aspirin; after 3 weeks, discontinue aspirin, continue Plavix Patient apparently has history of GI bleed on aspirin and Plavix Omeprazole changed to pantoprazole to prevent interaction Monitor CBC, patient daughter educated to monitor for melena or hematochezia -- LDL needs to be 70 or less Zio patch monitor to r/o a fib, to be arranged per Neurologist Dr. Maher --- Follow-up with Dr. Ric Snow neurologist in 4 weeks HIGH GRADE STENOSIS INTRACRANIAL RIGHT VERTEBRAL ARTERY RIGHT INTERNAL CAROTID ARTERY STENOSIS -- per Dr. Maher's notes: High-grade stenosis of the intracranial right vertebral at the skull base with near occlusion at the origin of the right vertebral artery; this appears to be asymptomatic based on the patient's current symptoms. -- A 50%-75% stenosis at the origin of the right internal carotid artery. Presumably as well, this is asymptomatic given that the patient's exam in part was notable for a flattened right nasolabial fold. The patient will need a followup carotid ultrasound in 6 months with referral to vascular surgery if the degree of stenosis is 70% or greater. LEFT LOWER LEG CHRONIC NON HEALING WOUND Tibia xray: 1. No evidence for osteomyelitis within the left tibia or fibula. 2. Soft tissue swelling overlying the anterior left tibia at site of wound. 3. Status post total left knee arthroplasty. No periprosthetic fracture or lucency. -- wound cultures obtained: pending, please follow up -- prescribed Doxycycline 100mg BID x 10 days -- will need MRI of the leg to r/o osteomyelitis will need to establish again with wound care center please monitor closely Acute neck pain:Could be secondary to osteoarthritis --Resolved Diabetes mellitus, type II: -- continue Metformin will need strict control given TIA Systolic heart failure, chronic: -- euvolemic Non-ST elevation OR (NSTEMI): -- troponin negative, no signs of acute ischemia Hypertension Blood pressure is controlled will need strict control Dyslipidemia: Continue statin maintain LDL < 70 DVT prophylaxis Subcu heparin given Disposition d/c home ff up with PCP October 10 ff up with Neurologist Dr. Maher in 4 weeks plan of care and case discussed with patient and his daughter at the bedside in detial and at length all questions answered they are understanding, agreeable, comfortable with the plan of care Total Time Total Time Spent Total Time Spent (In Minutes): 60 minutes Discharge Plan Discharge Items Patient Disposition: Home - Self-Care Reason For Visit: STROKE LIKE SYMPTOMS,H/O STROKE Discharge Diagnosis: Possible TIA or transient ischemic attack (Mini Stroke) Condition on Discharge: Good Activity: As commented below Activity Comment: Resume activity gradually as tolerated Lifting: Wait until after follow-up appointment Exercise/Sports: Wait until after follow-up appointment Driving/Machine Use: No driving until reevaluated and allowed by primary care physician Non-emergency contact: Primary Care Provider Call non-emergency contact if: you have any medication questions and you have a fever Follow-up/Referrals: Lynne Maher MD [Physician] - Diet: Carb Consistent or DM2 and Heart Healthy Addtl Attending Provider Instructions: Follow-up with Dr. Nichole Vargas at the [facility] on October 10 12:20 PM Follow-up with neurologist Dr. Larios in 4 weeks. Please call her office for an appointment, contact information outlined above. Plavix is being added to your aspirin. Start taking Plavix tomorrow and continue indefinitely. Stop aspirin after 3 weeks. Always take aspirin and Plavix with full stomach. If you are having any black or bloody stools, hold aspirin and Plavix and inform your physician immediately. Hold metformin and Lasix, resume both on October 11, 2019. Always drink plenty of water and keep yourself well-hydrated. Continue proper daily wound care dressing. Finish course of antibiotic-doxycycline. Take a probiotic daily for at least a month. Call primary care physician immediately if with increasing redness, swelling, pain, discharge, bleeding on your wound. Fever or chills, nausea or vomiting, weakness, diarrhea. Risk Factors for Stroke: You can reduce your chances of stroke by working with your medical provider to adopt a healthy lifestyle. Some specific ways to lower your chance of stroke are: If you are a smoker, now is the time to stop smoking cigarettes If you are diabetic, improve the control of your blood sugars Avoid excessive amounts of alcohol Control high blood pressure Lose weight if you are overweight Be sure to lead an active lifestyle Eat a healthy diet low in salt, cholesterol and fat You should know about other risk factors for stroke that you are unable to control. These include: Age 55 years or older Male gender Certain racial groups: , or / Family History of Stroke, Mini stroke or Heart Attack Sickle Cell Disease Follow Up: It is important for you to keep your follow up appointments with your medical provider. Who to Call and When: Medical Emergencies: Call 911 immediately if you experience any of the following warning signs and symptoms of Stroke: Sudden numbness or weakness of the face, arm or leg, especially on one side of the body Sudden confusion, trouble speaking or understanding Sudden trouble seeing in one or both eyes Sudden trouble walking, dizziness, loss of balance or coordination Sudden severe headache with no cause Do not delay calling 911 if you experience any warning signs or symptoms of a stroke. Delay in seeking medical attention may affect what treatments can be given to you. Pending Studies at Discharge: Yes Studies:: MRI of the left lower leg to rule out osteomyelitis; Zio patch cardiac monitoring to be arranged by primary care physician Stand-Alone Forms: [facility], Smoking Cessation Medications and DC Order Prescriptions: New doxycycline hyclate 100 mg Capsule 100 mg PO BID Qty: 20 RF: 0 clopidogrel 75 mg Tablet 75 mg PO QAM Qty: 30 RF: 2 pantoprazole [Protonix] 40 mg tablet,delayed release (DR/EC) 40 mg PO DAILY Qty: 30 RF: 1 Continued atorvastatin [Lipitor] 40 mg tablet 40 mg PO DAILY RF: 0 enalapril maleate [Vasotec] 20 mg tablet 20 mg PO DAILY RF: 0 aspirin [Aspir-81] 81 mg Tablet,Delayed Release (Dr/Ec) 81 mg PO DAILY RF: 0 sildenafil [Viagra] 100 mg tablet 100 mg PO UD RF: 0 carvedilol [Coreg] 3.125 mg tablet 6.25 mg PO BID RF: 0 Centrum Silver 0.4-300-250 mg-mcg-mcg Tablet 1 tab PO DAILY RF: 0 metformin 1,000 mg tablet 1,000 mg PO BID Qty: 0 RF: 0 furosemide [Lasix] 20 mg tablet 20 mg PO DAILY Qty: 0 RF: 0 Discontinued omeprazole 40 mg PO DAILY RF: 0 Discharge Orders: Discharge Order (Routine); Ordered 10/09/19 Ordered By: Tal Casiano/Other Patient Handouts: Hyperglycemia, Hypoglycemia, Diabetes Type 2 Managing Admission Data Admit Date/Time: 10/08/19 17:14 Attending Provider: Tal Cervantes Admit Provider: Peter Rome Primary Care Provider: Zainab Dickerson Other Providers: Peter Rome ; Lynne Maher Other Interventions: Discharge Summary Assessment (RN) Last Done: 10/09/19 17:23 DC Date/Time DO NOT enter until pt leaves facility: 10/09/19 17:59
--- NOTE | 2019-10-11 11:30 | Coding Query ---
CODING CLARIFICATION Diagnoses of possible, probable, suspected, or suspicious of cannot be coded on an outpatient or observation admission. Please provide further clarification below regarding the diagnoses of possible transient ischemic attack below: (X ) TIA WAS PRESENT DURING THIS ADMISSION ( ) TIA WAS RULED OUT DURING THIS ADMISSION ( ) OTHER, PLEASE CLARIFY: Thank you for your assistance, Caitie Jerez - [facility] ABISAI
== END 2019-10-09 17:59 | disposition home or self-care (01) ==
LOC: ED 14:19 → INTOOBSV 17:14 → 2S 17:14 → SUATTDRO 17:14 → 2S 17:32